=== PATIENT | male | born 1950 | race Caucasian/White ===

== ENCOUNTER → 2020-03-18 10:53 | Outpatient (BNVA) | payer MEDICAID, SELFPAY | PROVIDERS: PCP Internal Medicine; Visit Provider Orthopaedic Surgery | DX: M17.10 Unilateral primary osteoarthritis, unspecified knee (principal) | CPT/HCPCS: 20610; 99212; J1100 ==

== ENCOUNTER → 2020-06-17 09:54 | Outpatient (BNVA) | payer MEDICAID, SELFPAY | PROVIDERS: Visit Provider Orthopaedic Surgery | DX: M17.10 Unilateral primary osteoarthritis, unspecified knee (principal); E11.9 Type 2 diabetes mellitus without complications | CPT/HCPCS: 20610; 99212; J1100 ==

== ENCOUNTER 2022-02-18 13:26 | Emergency (ER) | payer MEDICAID, SELFPAY ==
--- NOTE | ~2022-02-18 | CT_ITS ---
CT HEAD WITHOUT IV CONTRAST CT CERVICAL SPINE WITHOUT IV CONTRAST INDICATION: Fall with head strike. COMPARISON: Head CT 02/04/2017. TECHNIQUE: Multidetector CT acquisitions of the head and cervical spine were obtained without IV contrast. Multiplanar reformats were acquired and utilized for image interpretation. This CT examination was performed using dose optimization techniques as appropriate, variously including the following: *Automated exposure control *Adjustment of mA and/or kV according to patient size (this includes techniques or standardized protocols for targeted exams where dose is matched to indication/reason for exam; i.e. extremities or head) *Use of iterative reconstruction technique FINDINGS: HEAD: There is no intracranial hemorrhage, hydrocephalus, extra-axial surface collection, midline shift, or other herniation pattern. Perivascular spaces within the inferior basal ganglia bilaterally. There is mild chronic microangiopathy. [place] to white matter differentiation is diffusely maintained without evidence of an evolved acute territorial infarct. The basilar cisterns are preserved. No significant soft tissue abnormality. No acute osseous abnormality. The paranasal sinuses and the mastoid air cells are well aerated. CERVICAL SPINE: Reversal the cervical lordosis. Advanced multilevel cervical spondylosis. There are no acute fractures and there are no acute subluxations within the cervical spine. There is no prevertebral soft tissue swelling. Atherosclerotic calcification involving the carotid bifurcations bilaterally. CT/CT head/brain wo IV con IMPRESSION: - No acute intracranial findings. - No acute osseous findings within the cervical spine. Advanced cervical spondylosis.
--- NOTE | ~2022-02-18 | CT_ITS ---
CT HEAD WITHOUT IV CONTRAST CT CERVICAL SPINE WITHOUT IV CONTRAST INDICATION: Fall with head strike. COMPARISON: Head CT 02/04/2017. TECHNIQUE: Multidetector CT acquisitions of the head and cervical spine were obtained without IV contrast. Multiplanar reformats were acquired and utilized for image interpretation. This CT examination was performed using dose optimization techniques as appropriate, variously including the following: *Automated exposure control *Adjustment of mA and/or kV according to patient size (this includes techniques or standardized protocols for targeted exams where dose is matched to indication/reason for exam; i.e. extremities or head) *Use of iterative reconstruction technique FINDINGS: HEAD: There is no intracranial hemorrhage, hydrocephalus, extra-axial surface collection, midline shift, or other herniation pattern. Perivascular spaces within the inferior basal ganglia bilaterally. There is mild chronic microangiopathy. [place] to white matter differentiation is diffusely maintained without evidence of an evolved acute territorial infarct. The basilar cisterns are preserved. No significant soft tissue abnormality. No acute osseous abnormality. The paranasal sinuses and the mastoid air cells are well aerated. CERVICAL SPINE: Reversal the cervical lordosis. Advanced multilevel cervical spondylosis. There are no acute fractures and there are no acute subluxations within the cervical spine. There is no prevertebral soft tissue swelling. Atherosclerotic calcification involving the carotid bifurcations bilaterally. CT/CT cervical spine wo IV con IMPRESSION: - No acute intracranial findings. - No acute osseous findings within the cervical spine. Advanced cervical spondylosis.
--- NOTE | ~2022-02-18 | XR_ITS ---
EXAMINATION: XR CHEST CLINICAL INFORMATION: Dizziness COMPARISON: Previous chest x-ray most recent November 2017 TECHNIQUE: Frontal view of the chest was obtained. FINDINGS: No significant abnormality is noted involving the heart, lungs, mediastinum, bony thorax or soft tissues. XR/XR chest 1V IMPRESSION: Unremarkable examination.
[2022-02-18 13:50] VITALS: BP 134/59; PULSE 77; RESP 16; TEMP 36.7; O2SAT 98; BMI 28.3
--- NOTE | 2022-02-18 13:50 | ED_ITS ---
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 for quite a while now and had 2 episodes of being ?dizzy yesterday and was noted to have a low blood sugar and then had a recent episode after that. Patient did have an appointment yesterday with his primary care provider but then told his daughters with whom he lives that ?he was unable to go because of his blood pressure?. Patient denies any fever, chills, shortness of breath or chest pain and denies any use of anticoagulant therapy or loss of consciousness during these episodes. Patient states he has been eating and drinking well. <Fiorella Ramirez MD - Last Filed: 02/18/22 16:38> Related Data Home Medications: Home Medications Medication Instructions Recorded Confirmed No Known Home Meds 06/17/20 06/17/20 <DONNELL Viera - Last Filed: 02/18/22 13:56> Allergies/Adverse Reactions: Allergies Allergy/AdvReac Type Severity Reaction Status Date / Time No Known Allergies Allergy Verified 02/18/22 13:55 <DONNELL Viera - Last Filed: 02/18/22 13:56> Review of Systems Review of Systems: Pertinent positives and negatives as stated in HPI. <Fiorella Ramirez MD - Last Filed: 02/18/22 16:38> PMFSH Past Medical History Source: nursing notes reviewed <Fiorella Ramirez MD - Last Filed: 02/18/22 16:38> Medical History: Medical History Depression Diabetes H/O renal calculi Hyperlipemia Hypertension Peripheral neuropathy <DONNELL Viera - Last Filed: 02/18/22 13:56> Surgical History: Surgical History History of umbilical hernia repair <DONNELL Viera - Last Filed: 02/18/22 13:56> Family History Family History: Family History Mother No problems noted. Father No problems noted. <DONNELL Viera - Last Filed: 02/18/22 13:56> Social History Social History: Social History Alcohol intake: never Advance Directives: No Advance Directives Information Provided: Yes Current occupational status: employed Current occupation: right handed <DONNELL Viera - Last Filed: 02/18/22 13:56> Physical Exam Vital Signs: Vital Signs: Last Vital Signs Temp 98.1 F 02/18/22 13:50 Pulse 78 02/18/22 16:00 Resp 18 02/18/22 16:00 BP 137/60 02/18/22 16:00 Pulse Ox 99 02/18/22 16:00 O2 Del Method 02/18/22 16:00 BMI result Body Mass Index 28.3 <DONNELL Viera - Last Filed: 02/18/22 13:56> Vital Signs: Last Vital Signs Temp 98.1 F 02/18/22 13:50 Pulse 78 02/18/22 16:00 Resp 18 02/18/22 16:00 BP 137/60 02/18/22 16:00 Pulse Ox 99 02/18/22 16:00 O2 Del Method 02/18/22 16:00 BMI result Body Mass Index 28.3 VITAL SIGNS: Reviewed. GENERAL: Well developed, well nourished, in no acute distress. HEAD: Normocephalic/atraumatic, I do not appreciate any facial injuries. EYES: PERRLA, EOMI EARS: Ext canals without abnormality, TMs non-bulging and non-erythematous NOSE: Nares patent bilateral OROPHARYNX: no oral lesions noted, posterior pharynx clear and non-erythematous without noted tonsillar enlargement/erythema/exudates NECK: Supple, no adenopathy LUNGS: Normal breath sounds. No adventitious sounds or accessory muscle use. SpO2<99> CARDIOVASCULAR: Regular rate and rhythm without noted murmurs, no JVD or lower extremity edema. ABDOMEN: Soft, non-tender, non-distended with bowel sounds. MUSCULOSKELETAL: No tenderness, deformities, or effusions noted on gross inspection. EXTREMITIES: No cyanosis, clubbing or edema. SKIN: Inspection of the skin reveals no rashes NEUROLOGIC: Alert and oriented x 3. Strength and sensation to light touch were grossly intact x 4, no facial asymmetry, no pronator drift, cranial nerves 2-12 are grossly intact. <Fiorella Ramirez MD - Last Filed: 02/18/22 16:38> Course Course Course Narrative: 13:50 - RME - 71 yo male Polish speaking male with history of DM, HTN, arthritis, presents to the ER for evaluation after he fell last night at 11:30pm. He fell in the setting of dizziness after getting out of the shower. He hit his head but did not lose consciousness. No chest pain or SOB. BP after the fall was 110/58, baseline BP 150/70s. Three days prior he also fell backward when walking down the hallway and his daughter caught him. 1st fall associated with left sided headache and left sided numbness which has since resolved. PCP told him to come in for evaluation. - VSS on arrival. Will check CT scans head/neck, labs, EKG, trop, viral swab and orthostatic VS. Plan per provider in the pain ER. <DONNELL Viera - Last Filed: 02/18/22 13:56> Medical Decision Making Medical Decision Making MDM Narrative: 71-year-old male who reports intermittent dizziness with 2 falls but refusing to go in and see his primary care provider. Will evaluate for any presence of infection, new anemia, electrolyte imbalance. <Fiorella Ramirez MD - Last Filed: 02/18/22 16:38> Differential Diagnosis Differential Diagnoses: The differential diagnosis associated with the presentation includes <Fiorella Ramirez MD - Last Filed: 02/18/22 16:38> Infection, anemia, electrolyte imbalance, hyper/hypoglycemia. <Fiorella cunningham MD - Last Filed: 02/18/22 16:38> Lab Data MDM Lab Attestation statement: I reviewed the patient's lab results. <Fiorella Ramirez MD - Last Filed: 02/18/22 16:38> Please see the course Section for discussion <Fiorella Ramirez MD - Last F iled: 02/18/22 16:38> Result Diagrams: : 02/18/22 14:49 02/18/22 14:49 <DONNELL Viera - Last Filed: 02/18/22 13:56> Labs: Lab Results 02/18/22 02/18/22 02/18/22 Range/Units 14:49 14:49 14:49 WBC 10.8 (4.8-10.8) X10*3/uL RBC 4.00 L (4.60-5.80) X10*6/uL Hgb 10.8 L (14.0-18.0) g/dl Hct 33.8 L (42.0-52.0) % MCV 84.5 (80.0-98.0) fL MCH 27.0 (27.0-33.0) pg MCHC 32.0 (31.0-36.0) g/dl RDW 13.4 (11.0-16.0) % Plt Count 294 (160-400) X10*3/uL MPV 10.0 (9.4-12.4) fL Immature Gran % (Auto) 0.2 (0.0-0.4) % Neut % (Auto) 65.7 (45-73) % Lymph % (Auto) 25.8 (20-40) % Pepin % (Auto) 7.8 (2-11) % Eos % (Auto) 0.0 (0-4) % Baso % (Auto) 0.5 (0-2) % Lymph # (Auto) 2.8 (1.2-4.9) X10*3/uL [place] # (Auto) 0.8 (0.1-1.2) X10*3/uL Eos # (Auto) 0.0 (0.0-0.4) X10*3/uL Baso # (Auto) 0.1 (0.0-0.2) X10*3/uL Abs Immat Gran (auto) 0.02 (0.00-0.03) X10*3/uL Absolute Neuts (auto) 7.1 (2.0-8.3) x10*3/uL Absolute Nucleated RBC 0.000 (0.0-0.012) X10*3/uL Nucleated RBC % (auto) 0.0 (0.0-0.2) /100WBC PT 11.7 (10.0-13.1) SEC INR 1.0 (0.9-1.1) APTT 33.5 (26.0-36.4) SEC Sodium 135 (135-145) mmol/L Potassium 4.4 (3.3-5.1) mmol/L Chloride 102 (96-108) mmol/L Carbon Dioxide 25 (22-29) mmol/L Anion Gap 12 (12-20) BUN 23 H (9-16) mg/dL Creatinine 1.23 (0.5-1.4) mg/dL Estim Creat Clear Calc 54.8 Estimated GFR 58 Random Glucose 152 H (60-115) mg/dL Calcium 9.4 (8.4-10.2) mg/dL Magnesium 1.8 (1.6-2.6) mg/dL Total Bilirubin 0.4 (0.0-1.0) mg/dL Direct Bilirubin 0.2 (0.0-0.5) mg/dL AST 14 (5-37) U/L ALT 10 (0-40) U/L Alkaline Phosphatase 63 (39-117) U/L Total Protein 7.4 (6.5-8.0) g/dL Albumin 3.9 (3.5-5.0) g/dL Influenza Type A (PCR) (Negative) Influenza Type B (PCR) (Negative) RSV RNA Qual (PCR) (Negative) SARS-CoV-2 RNA (RT-PCR) (Negative) 02/18/22 Range/Units 14:49 WBC (4.8-10.8) X10*3/uL RBC (4.60-5.80) X10*6/uL Hgb (14.0-18.0) g/dl Hct (42.0-52.0) % MCV (80.0-98.0) fL MCH (27.0-33.0) pg MCHC (31.0-36.0) g/dl RDW (11.0-16.0) % Plt Count (160-400) X10*3/uL MPV (9.4-12.4) fL Immature Gran % (Auto) (0.0-0.4) % Neut % (Auto) (45-73) % Lymph % (Auto) (20-40) % Pepin % (Auto) (2-11) % Eos % (Auto) (0-4) % Baso % (Auto) (0-2) % Lymph # (Auto) (1.2-4.9) X10*3/uL Pepin # (Auto) (0.1-1.2) X10*3/uL Eos # (Auto) (0.0-0.4) X10*3/uL Baso # (Auto) (0.0-0.2) X10*3/uL Abs Immat Gran (auto) (0.00-0.03) X10*3/uL Absolute Neuts (auto) (2.0-8.3) x10*3/uL Absolute Nucleated RBC (0.0-0.012) X10*3/uL Nucleated RBC % (auto) (0.0-0.2) /100WBC PT (10.0-13.1) SEC INR (0.9-1.1) APTT (26.0-36.4) SEC Sodium (135-145) mmol/L Potassium (3.3-5.1) mmol/L Chloride (96-108) mmol/L Carbon Dioxide (22-29) mmol/L Anion Gap (12-20) BUN (9-16) mg/dL Creatinine (0.5-1.4) mg/dL Estim Creat Clear Calc Estimated GFR Random Glucose (60-115) mg/dL Calcium (8.4-10.2) mg/dL Magnesium (1.6-2.6) mg/dL Total Bilirubin (0.0-1.0) mg/dL Direct Bilirubin (0.0-0.5) mg/dL AST (5-37) U/L ALT (0-40) U/L Alkaline Phosphatase (39-117) U/L Total Protein (6.5-8.0) g/dL Albumin (3.5-5.0) g/dL Influenza Type A (PCR) NEGATIVE (Negative) Influenza Type B (PCR) NEGATIVE (Negative) RSV RNA Qual (PCR) NEGATIVE (Negative) SARS-CoV-2 RNA (RT-PCR) NEGATIVE (Negative) <DONNELL Viera - Last Filed: 02/18/22 13:56> Lab Results 02/18/22 02/18/22 02/18/22 Range/Units 14:49 14:49 14:49 WBC 10.8 (4.8-10.8) X10*3/uL RBC 4.00 L (4.60-5.80) X10*6/uL Hgb 10.8 L (14.0-18.0) g/dl Hct 33.8 L (42.0-52.0) % MCV 84.5 (80.0-98.0) fL MCH 27.0 (27.0-33.0) pg MCHC 32.0 (31.0-36.0) g/dl RDW 13.4 (11.0-16.0) % Plt Count 294 (160-400) X10*3/uL MPV 10.0 (9.4-12.4) fL Immature Gran % (Auto) 0.2 (0.0-0.4) % Neut % (Auto) 65.7 (45-73) % Lymph % (Auto) 25.8 (20-40) % Pepin % (Auto) 7.8 (2-11) % Eos % (Auto) 0.0 (0-4) % Baso % (Auto) 0.5 (0-2) % Lymph # (Auto) 2.8 (1.2-4.9) X10*3/uL Pepin # (Auto) 0.8 (0.1-1.2) X10*3/uL Eos # (Auto) 0.0 (0.0-0.4) X10*3/uL Baso # (Auto) 0.1 (0.0-0.2) X10*3/uL Abs Immat Gran (auto) 0.02 (0.00-0.03) X10*3/uL Absolute Neuts (auto) 7.1 (2.0-8.3) x10*3/uL Absolute Nucleated RBC 0.000 (0.0-0.012) X10*3/uL Nucleated RBC % (auto) 0.0 (0.0-0.2) /100WBC PT 11.7 (10.0-13.1) SEC INR 1.0 (0.9-1.1) APTT 33.5 (26.0-36.4) SEC Sodium 135 (135-145) mmol/L Potassium 4.4 (3.3-5.1) mmol/L Chloride 102 (96-108) mmol/L Carbon Dioxide 25 (22-29) mmol/L Anion Gap 12 (12-20) BUN 23 H (9-16) mg/dL Creatinine 1.23 (0.5-1.4) mg/dL Estim Creat Clear Calc 54.8 Estimated GFR 58 Random Glucose 152 H (60-115) mg/dL Calcium 9.4 (8.4-10.2) mg/dL Magnesium 1.8 (1.6-2.6) mg/dL Total Bilirubin 0.4 (0.0-1.0) mg/dL Direct Bilirubin 0.2 (0.0-0.5) mg/dL AST 14 (5-37) U/L ALT 10 (0-40) U/L Alkaline Phosphatase 63 (39-117) U/L Total Protein 7.4 (6.5-8.0) g/dL Albumin 3.9 (3.5-5.0) g/dL Influenza Type A (PCR) (Negative) Influenza Type B (PCR) (Negative) RSV RNA Qual (PCR) (Negative) SARS-CoV-2 RNA (RT-PCR) (Negative) 02/18/22 Range/Units 14:49 WBC (4.8-10.8) X10*3/uL RBC (4.60-5.80) X10*6/uL Hgb (14.0-18.0) g/dl Hct (42.0-52.0) % MCV (80.0-98.0) fL MCH (27.0-33.0) pg MCHC (31.0-36.0) g/dl RDW (11.0-16.0) % Plt Count (160-400) X10*3/uL MPV (9.4-12.4) fL Immature Gran % (Auto) (0.0-0.4) % Neut % (Auto) (45-73) % Lymph % (Auto) (20-40) % Pepin % (Auto) (2-11) % Eos % (Auto) (0-4) % Baso % (Auto) (0-2) % Lymph # (Auto) (1.2-4.9) X10*3/uL Pepin # (Auto) (0.1-1.2) X10*3/uL Eos # (Auto) (0.0-0.4) X10*3/uL Baso # (Auto) (0.0-0.2) X10*3/uL Abs Immat Gran (auto) (0.00-0.03) X10*3/uL Absolute Neuts (auto) (2.0-8.3) x10*3/uL Absolute Nucleated RBC (0.0-0.012) X10*3/uL Nucleated RBC % (auto) (0.0-0.2) /100WBC PT (10.0-13.1) SEC INR (0.9-1.1) APTT (26.0-36.4) SEC Sodium (135-145) mmol/L Potassium (3.3-5.1) mmol/L Chloride (96-108) mmol/L Carbon Dioxide (22-29) mmol/L Anion Gap (12-20) BUN (9-16) mg/dL Creatinine (0.5-1.4) mg/dL Estim Creat Clear Calc Estimated GFR Random Glucose (60-115) mg/dL Calcium (8.4-10.2) mg/dL Magnesium (1.6-2.6) mg/dL Total Bilirubin (0.0-1.0) mg/dL Direct Bilirubin (0.0-0.5) mg/dL AST (5-37) U/L ALT (0-40) U/L Alkaline Phosphatase (39-117) U/L Total Protein (6.5-8.0) g/dL Albumin (3.5-5.0) g/dL Influenza Type A (PCR) NEGATIVE (Negative) Influenza Type B (PCR) NEGATIVE (Negative) RSV RNA Qual (PCR) NEGATIVE (Negative) SARS-CoV-2 RNA (RT-PCR) NEGATIVE (Negative) <Fiorella Ramirez MD - Last Filed: 02/18/22 16:38> Independent Interpretation I performed an independent interpretation of an: EKG <Fiorella Ramirez MD - Last Filed: 02/18/22 16:38> Interpretation: Sinus rhythm with occasional PVC, HR-78, no STEMI, PA/QRS/QTC is within normal limits. <Fiorella Ramirez MD - Last Filed: 02/18/22 16:38> Radiology Impression Radiologist Impression: My interpretation is in agreement with the radiologist's impression of imaging studies. <Fiorella Ramirez MD - Last Filed: 02/18/22 16:38> Independent Historian Clinical information obtained from an independent historian. History obtained from or confirmed by: Other <Fiorella Ramirez MD - Last Filed: 02/18/22 16:38> Daughter <Fiorella Ramirez MD - Last Filed: 02/18/22 16:38> Chronic Conditions Patient?s care impacted by: Diabetes <Fiorella Ramirez MD - Last Filed: 02/18/22 16:38> Discharge Plan Discharge Clinical Impression: Fall <DONNELL Viera - Last Filed: 02/18/22 13:56> Patient Disposition: Home, Self-Care <DONNELL Viera - Last Filed: 02/18/22 13:56> Instructions: Fall Prevention for Older Adults (ED) <DONNELL Viera - Last Filed: 02/18/22 13:56> Additional Instructions: 1. Reanudar todos los medicamentos caseros seg?n lo prescrito. 2. Le recomendamos que tenga cuidado al cambiar de posici?n cuando est? parado desde jamila posici?n sentada o cuando est? parado desde jamila posici?n acostada. 3. Recomiende que no tome medicamentos para la presi?n arterial si lenz presi?n arterial sist?lica inicial es de 120 o menos. 4. Es muy importante que geno un seguimiento con lenz proveedor de atenci?n primaria. Tiene jamila augie programada a la que absolutamente debe asistir. Enviar? mi nota a lenz proveedor de atenci?n primaria. Regrese a la isaias de emergencias por cualquier empeoramiento de los s?ntomas. 1. Resume all home medications as prescribed. 2. Recommend that you use caution in changing position when standing from a sitting position or standing from a laying down position. 3. Recommend that you not take blood pressure medication if your starting blood pressure is 120 or less systolic. 4. It is very important that you follow-up with your primary care provider. You have a scheduled appointment that you should absolutely attend. I will be sending my note over to your primary care provider. Return to the ER for any worsening of symptoms. <DONNELL Viera - Last Filed: 02/18/22 13:56> Referrals: [facility] [Primary Care Provider] - <DONNELL Viera - Last Filed: 02/18/22 13:56> Print Language: Polish <DONNELL Viera - Last Filed: 02/18/22 13:56>
--- NOTE | 2022-02-18 13:53 | ECG_ITS ---
Test Reason : FALL Blood Pressure : / mmHG Vent. Rate : 078 BPM Atrial Rate : 078 BPM P-R Int : 200 ms QRS Dur : 096 ms QT Int : 380 ms P-R-T Axes : 033 -11 029 degrees QTc Int : 433 ms Sinus rhythm with occasional Premature ventricular complexes Possible Left atrial enlargement Minimal voltage criteria for LVH, may be normal variant ( R in aVL ) Borderline ECG When compared with ECG of 18-MAY-2017 13:32, Premature ventricular complexes are now Present Nonspecific T wave abnormality no longer evident in Lateral leads Referred By: Damaris Woodard Electronically Signed By:CARLYLE SOLIMAN MD
[2022-02-18 14:33] VITALS: BP 119/54; PULSE 72
[2022-02-18 14:35] VITALS: BP 125/64; PULSE 77
[2022-02-18 14:37] VITALS: BP 120/58; PULSE 80
[2022-02-18 14:54] LABS: MANUAL DIFF FLAG NO
[2022-02-18 15:02] LABS: Basophils Absolute Auto 0.1 X10*3/uL (0.0-0.2); Basophils Percent Auto 0.5 % (0-2); Hematocrit 33.8 % (42.0-52.0); Hemoglobin 10.8 g/dl (14.0-18.0); Imm Gran Abs Auto 0.02 X10*3/uL (0.00-0.03); Imm Gran Pct Auto 0.2 % (0.0-0.4); Lymphocytes Absolute Auto 2.8 X10*3/uL (1.2-4.9); Lymphocytes Percent Auto 25.8 % (20-40); Mean Corpuscular Volume 84.5 fL (80.0-98.0); Monocytes Absolute Auto 0.8 X10*3/uL (0.1-1.2); Monocytes Percent Auto 7.8 % (2-11); Neutrophils Absolute Auto 7.1 x10*3/uL (2.0-8.3); Neutrophils Percent Auto 65.7 % (45-73); Platelet Count 294 X10*3/uL (160-400); Red Cell Distribution Width 13.4 % (11.0-16.0); White Blood Count 10.8 X10*3/uL (4.8-10.8)
[2022-02-18 15:03] LABS: Prothrombin Time 11.7 SEC (10.0-13.1)
[2022-02-18 15:06] LABS: Partial Thromboplastin Time 33.5 SEC (26.0-36.4)
[2022-02-18 15:34] LABS: Alanine Aminotransferase 10 U/L (0-40); Albumin Level 3.9 g/dL (3.5-5.0); Alkaline Phosphatase 63 U/L (39-117); Anion Gap 12 (12-20); Aspartate Amino Transferase 14 U/L (5-37); Bilirubin Direct 0.2 mg/dL (0.0-0.5); Bilirubin Total 0.4 mg/dL (0.0-1.0); Blood Urea Nitrogen 23 mg/dL (9-16); Calcium 9.4 mg/dL (8.4-10.2); Carbon Dioxide 25 mmol/L (22-29); Chloride 102 mmol/L (96-108); Creatinine Clr Calc Pharmacy 54.8; Estimated Glomerular Filt Rate 58; Glucose Random 152 mg/dL (60-115); Magnesium 1.8 mg/dL (1.6-2.6); Potassium 4.4 mmol/L (3.3-5.1); Sodium 135 mmol/L (135-145); Total Protein 7.4 g/dL (6.5-8.0)
[2022-02-18 15:35] LABS: Influenza A PCR NEGATIVE (Negative); Influenza B PCR NEGATIVE (Negative); Resp Syncy Virus RNA Qual PCR NEGATIVE (Negative); SARS COV2 PCR INHOUSE NEGATIVE (Negative)
[2022-02-18 16:00] VITALS: BP 137/60; PULSE 78; RESP 18; O2SAT 99
[2022-02-18 17:20] LABS: Troponin-I High Sensitivity 4.5 ng/L (<3.5-35.0)
== END 2022-02-18 16:56 | disposition home or self-care (01) ==
PROVIDERS: Physician Assistant; Emergency Provider Student in an Organized Health Care Education/Training Program
DX: R42 Dizziness and giddiness (principal); M54.2 Cervicalgia; R51.9 Headache, unspecified; R07.89 Other chest pain; Z20.822 Contact with and (suspected) exposure to COVID-19; Z79.899 Other long term (current) drug therapy
CPT/HCPCS: 0241U; 36415; 70450; 71045; 72125; 80048; 80076; 83735; 84484; 85025; 85610; 85730; 93005; 99284

== ENCOUNTER 2022-03-05 12:01 | Emergency (ER) | payer MEDICAID, SELFPAY ==
--- NOTE | 2022-03-05 12:05 | ED.DIZZY ---
HPI - Dizziness General Chief Complaint: General Medical <Miguelina Sneed NP - Last Filed: 03/05/22 12:09> Stated Complaint: L side head and arm pain, Low BP, High sugar <Miguelina Sneed NP - Last Filed: 03/05/22 12:09> Time Seen by Provider: 03/05/22 13:48 <Miguelina Sneed NP - Last Filed: 03/05/22 12:09> Source: patient and family (daughter) <DONNELL Arrington - Last Filed: 03/05/22 16:35> Mode of arrival: ambulatory <DONNELL Arrington Last Filed: 03/05/22 16:35> Limitations: no limitations <DONNELL Arrington Last Filed: 03/05/22 16:35> History of Present Illness HPI Narrative: Patient is a 71 year old assigned male at with a history of DM presenting to the emergency department today with an episode of dizziness and left head pain. Patient states that several days ago he had an episode of dizziness that was brief and resolved quickly. Patient states that the left side of his head has hurt intermittently since then. Patient's daughter states that the patient's sugar was high this morning so they gave him insulin and it got better. Patient denies any current dizziness, lightheadedness, abdominal pain, nausea, vomiting, fever, chills, blurry vision, double vision, loss of vision, chest pain, difficulty breathing, shortness of breath, back pain, night sweats, pain with urination, increased urinary frequency, increased urinary urgency, blood in his urine or stool, syncope or a near syncopal episode, recent trauma or falls, bowel incontinence, bladder incontinence, bowel retention, bladder retention, or any other complaints at this time. <DONNELL Arrington - Last Filed: 03/05/22 16:35> MD elicited complaint: dizziness <DONNELL Arrington Last Filed: 03/05/22 16:35> Exacerbating factors: nothing <DONNELL Arrington Last Filed: 03/05/22 16:35> Relieving factors: nothing <DONNELL Arrington Last Filed: 03/05/22 16:35> Associated symptoms: denies other symptoms <DONNELL Arrington Last Filed: 03/05/22 16:35> Related Data Home Medications: Home Medications Medication Instructions Recorded Confirmed No Known Home Meds 06/17/20 06/17/20 <Miguelina Sneed NP - Last Filed: 03/05/22 12:09> Allergies/Adverse Reactions: Allergies Allergy/AdvReac Type Severity Reaction Status Date / Time seafood Allergy Anaphylaxis Verified 03/05/22 12:09 <Miguelina Sneed NP - Last Filed: 03/05/22 12:09> Review of Systems Constitutional: Constitutional: Reports no additional constitutional complaints, Denies chills, Denies fever(s) and Denies night sweats <DONNELL Arrington - Last Filed: 03/05/22 16:35> Eyes: Eyes: Reports no additional eye complaints, Denies blurry vision, Denies change in vision, Denies diplopia, Denies eye discharge, Denies loss of vision and Denies eye pain <DONNELL Arrington - Last Filed: 03/05/22 16:35> ENT: Denies dizziness <DONNELL Arrington - Last Filed: 03/05/22 16:35> Cardiovascular: Cardiovascular: Reports no additional cardiovascular complaints, Denies chest pain, Denies lightheadedness, Denies Loss of Consciousness and Denies dyspnea <DONNELL Arrington - Last Filed: 03/05/22 16:35> Respiratory: Respiratory: Reports no additional respiratory complaints and Denies dyspnea <DONNELL Arrington Last Filed: 03/05/22 16:35> Gastrointestinal: Gastrointestinal: Reports no additional gastrointestinal complaints, Denies abdominal pain, Denies melena, Denies hematochezia, Denies change in bowel habits and Denies change in stool character <DONNELL Arrington - Last Filed: 03/05/22 16:35> Genitourinary: Genitourinary: Reports no additional male genitourinary complaints, Denies hematuria, Denies oliguria, Denies difficulty urinating, Denies dysuria, Denies urinary frequency, Denies urinary hesitancy, Denies urinary incontinence and Denies urinary urgency <DONNELL Arrington Last Filed: 03/05/22 16:35> Musculoskeletal: Musculoskeletal: Reports no additional musculoskeletal complaints, Denies numbness and Denies tingling <DONNELL Arrington - Last Filed: 03/05/22 16:35> Neurologic: Denies dizziness, Denies loss of vision, Denies numbness and Denies tingling <DONNELL Arrington - Last Filed: 03/05/22 16:35> Psychiatric: Psychiatric: Reports no additional psychiatric complaints <DONNELL Arrington - Last Filed: 03/05/22 16:35> Endocrine: Endocrine: Reports no additional endocrine complaints <DONNELL Arrington - Last Filed: 03/05/22 16:35> Hematologic/Lymphatic: Hematologic/Lymphatic: Reports no additional hematologic/lymphatic complaints <DONNELL Arrington - Last Filed: 03/05/22 16:35> Allergic/Immunologic: Allergic/Immunologic: Reports no additional allergic/immunologic complaints <DONNELL Arrington - Last Filed: 03/05/22 16:35> PMFSH Past Medical History Attestation statement: The following information was validated with the patient. (patient's daughter validated all information) <DONNELL Arrington - Last Filed: 03/05/22 16:35> Source: old records reviewed, obtained from family (patient's daughter) and nursing notes reviewed <DONNELL Arrington - Last Filed: 03/05/22 16:35> Medical History: Medical History Depression Diabetes H/O renal calculi Hyperlipemia Hypertension Peripheral neuropathy <Miguelina Sneed NP - Last Filed: 03/05/22 12:09> Surgical History: Surgical History History of umbilical hernia repair <Miguelina Sneed NP - Last Filed: 03/05/22 12:09> Family History Family History: Family History Mother No problems noted. Father No problems noted. <Miguelina Sneed NP - Last Filed: 03/05/22 12:09> Social History Social History: Social History Alcohol intake: never Advance Directives: No Advance Directives Information Provided: Yes Current occupational status: employed Current occupation: right handed <Miguelina Sneed NP - Last Filed: 03/05/22 12:09> Physical Exam Vital Signs: Vital Signs: Last Vital Signs Temp 98.1 F 03/05/22 12:06 Pulse 90 03/05/22 13:49 Resp 18 03/05/22 13:49 BP 108/60 03/05/22 13:49 Pulse Ox 98 03/05/22 13:49 O2 Del Method 03/05/22 13:49 BMI result Body Mass Index 26.6 <Miguelina Sneed NP - Last Filed: 03/05/22 12:09> Vital Signs: Last Vital Signs Temp 98.1 F 03/05/22 12:06 Pulse 90 03/05/22 13:49 Resp 18 03/05/22 13:49 BP 108/60 03/05/22 13:49 Pulse Ox 98 03/05/22 13:49 O2 Del Method 03/05/22 13:49 BMI result Body Mass Index 26.6 <DONNELL Arirngton - Last Filed: 03/05/22 16:35> Const: General: cooperative, no acute distress, alert and awake <DONNELL Arrington - Last Filed: 03/05/22 16:35> Nutritional Appearance: well nourished <DONNELL Arrington - Last Filed: 03/05/22 16:35> Orientation/consciousness: patient oriented x3 <DONNELL Arrington - Last Filed: 03/05/22 16:35> Limitations: no limitations <DONNELL Arrington - Last Filed: 03/05/22 16:35> HEENT: Head: Yes normal to inspection and Yes atraumatic <DONNELL Arrington - Last Filed: 03/05/22 16:35> Ears: hearing grossly normal bilaterally and external ears normal <DONNELL Arrington Last Filed: 03/05/22 16:35> General nose exam: Normal external nose present, no nasal discharge noted and no epistaxis <DONNELL Arrington Last Filed: 03/05/22 16:35> Face and sinus: Yes normal facial exam, No abrasion and No laceration <Imani WongDONNELL - Last Filed: 03/05/22 16:35> Mouth: Normal oral and palatal mucosa present, no drooling and no muffled voice <Imani Wong MN - Last Filed: 03/05/22 16:35> Eyes: General: appearance normal, both eyes and all related structures <Imani Wong MN - Last Filed: 03/05/22 16:35> Periorbital: periorbital findings normal <Imani Wong MN - Last Filed: 03/05/22 16:35> Eyelids: Yes eyelids normal <Imani Wong MN - Last Filed: 03/05/22 16:35> Conjunctivae: conjunctivae normal <Imani Wong MN - Last Filed: 03/05/22 16:35> Pupils: Equal, round and reactive pupils present <Imani Wong MN - Last Filed: 03/05/22 16:35> EOM: EOMs intact bilaterally <Imani Gastelumbarbara MN - Last Filed: 03/05/22 16:35> Neck: Neck: Yes normal visual inspection, Yes full ROM and Yes no lymphadenopathy <Imani Gastelumbarbara MN - Last Filed: 03/05/22 16:35> Chest: Chest palpation & inspection: normal inspection of the chest <Imaniharrison Gastelumbarbara MN - Last Filed: 03/05/22 16:35> Resp: Effort & Inspection: normal respiratory effort and able to speak in complete sentences <Imaniharrison Gastelumbarbara MN - Last Filed: 03/05/22 16:35> Auscultation: clear to auscultation bilaterally <Imani Gastelumbarbara MN - Last Filed: 03/05/22 16:35> Cardio: Rate: regular rate <Imani Gastelumbarbara MN - Last Filed: 03/05/22 16:35> Rhythm: regular rhythm <Imani Gastelumbarbara MN - Last Filed: 03/05/22 16:35> GI: Inspection: Yes normal to inspection <Imaniharrison GastelumDONNELL jimenez - Last Filed: 03/05/22 16:35> Palpation (GI): Soft to palpation, not firm, nontender, no guarding and not rigid <Imani DONNELL Wong - Last Filed: 03/05/22 16:35> Neuro: General: patient oriented x3 and moves all extremities <Imaniharrison GastelumDONNELL jimenez - Last Filed: 03/05/22 16:35> Cranial nerves: Yes Equal, round and reactive pupils present <Imani GastelumDONNELL jimenez - Last Filed: 03/05/22 16:35> Cognition (Neuro): normal cognition <Imaniharrison GastelumDONNELL jimenez - Last Filed: 03/05/22 16:35> Motor exam (neuro): 5/5 motor strength present throughout <Imaniharrison GastelumDONNELL jimenez - Last Filed: 03/05/22 16:35> Sensory Exam: Normal double simultaneous stimulation for sensation <Imaniharrison GastelumDONNELL jimenez - Last Filed: 03/05/22 16:35> Coordination: [id number] test normal <Imani WongDONNELL jimenez - Last Filed: 03/05/22 16:35> Extrem: General: Yes normal to inspection, Yes full ROM and Yes capillary refill normal <DONNELL Arrington - Last Filed: 03/05/22 16:35> Psych: Appearance: grossly normal <Imaniharrison GastelumDONNELL jimenez - Last Filed: 03/05/22 16:35> Mental Status: mental status grossly normal <Imaniharrison GastelumDONNELL jimenez - Last Filed: 03/05/22 16:35> Affect: normal affect <DONNELL Arrington - Last Filed: 03/05/22 16:35> Attitude: cooperative <DONNELL Arrington - Last Filed: 03/05/22 16:35> Thought process: Normal thought process present <DONNELL Arrington - Last Filed: 03/05/22 16:35> Thought content: Normal thought content present <DONNELL Arrington - Last Filed: 03/05/22 16:35> Insight: Good insight present (Psych) <DONNELL Arrington - Last Filed: 03/05/22 16:35> NIH Stroke Scale Internal: Initial- Upon Arrival <DONNELL Arrington - Last Filed: 03/05/22 16:35> Time: 12:09 <DONNELL Arrington - Last Filed: 03/05/22 16:35> Level of Consciousness: Alert <DONNELL Arrington - Last Filed: 03/05/22 16:35> Level of Consciousness Questions: Answers both questions correctly <Imani Wong PA - Last Filed: 03/05/22 16:35> Level of Consciousness Commands: Performs both tasks correctly <Imani Wong PA - Last Filed: 03/05/22 16:35> Best Gaze: Normal <Imani Wong PA - Last Filed: 03/05/22 16:35> Visual: No visual loss <Imani Wong PA - Last Filed: 03/05/22 16:35> Facial Palsy: Normal <Imani Wong PA - Last Filed: 03/05/22 16:35> Motor Arm (Right): No drift <Imaniharrison Wong PA - Last Filed: 03/05/22 16:35> Motor Arm (Left): No drift <Imaniharrison Wong PA - Last Filed: 03/05/22 16:35> Motor Leg (Right): No drift <Imani Wong PA - Last Filed: 03/05/22 16:35> Motor Leg (Left): No drift <Imani Wong PA - Last Filed: 03/05/22 16:35> Limb Ataxia: Absent <Imani Wong PA - Last Filed: 03/05/22 16:35> Sensory: Normal <Imani Wong PA - Last Filed: 03/05/22 16:35> Best Language: No aphasia <Imani Wong PA - Last Filed: 03/05/22 16:35> Dysarthia: Normal <Imani Wong PA - Last Filed: 03/05/22 16:35> Extinction and Inattention: No abnormality <Imani Wong PA - Last Filed: 03/05/22 16:35> Score: 0 <Imani Wong PA - Last Filed: 03/05/22 16:35> Course Course Course Narrative: This is a rapid medical exam. Deferred additional HPI, ROS, PE to primary provider. 71 yo male with history of DM, HTN here with intermittent episodes of dizziness, left sided temporal headache, left sided arm pain x weeks. Seen here 02/18 after a fall with similar complaints. Will obtain labs, EKG, covid testing. VSS. <Miguelina Sneed NP - Last Filed: 03/05/22 12:09> Medical Decision Making Medical Decision Making [facility] Narrative: Patient is a 71 year old assigned male at with a history of DM presenting to the emergency department today with resolved dizziness. Patient's physical exam was unremarkable. Patient's blood work was unremarkable. Patient's EKG was unremarkable. I explained my physical exam findings as well as all test results to the patient and the patient's daughter. I answered all questions asked by the patient and the patient's daughter. I stressed the importance of the patient taking his medication as prescribed. I stressed the importance of the patient following up with his primary care provider. I stressed the importance of the patient returning to the emergency department immediately if his symptoms were to worsen or if he were to develop any dizziness, shortness of breath, difficulty breathing, chest pain, blurry vision, loss of vision, nausea, vomiting, abdominal pain, fever, chills, back pain, or any other complaints. Patient and the patient's daughter verbalized agreement and understanding with this treatment plan and discharge. <DONNELL Arrington - Last Filed: 03/05/22 16:35> Differential Diagnosis Differential Diagnoses: The differential diagnosis associated with the presentation includes <DONNELL Arrington - Last Filed: 03/05/22 16:35> dizziness, lightheadedness <DONNELL Arrington - Last Filed: 03/05/22 16:35> Lab Data [facility] Lab Attestation statement: I reviewed the patient's lab results. <DONNELL Arrington - Last Filed: 03/05/22 16:35> Result Diagrams: 03/05/22 12:39 03/05/22 12:39 <Miguelina Sneed NP - Last Filed: 03/05/22 12:09> Labs: Lab Results 03/05/22 03/05/22 03/05/22 Range/Units 12:39 12:39 12:39 WBC 9.9 (4.8-10.8) X10*3/uL RBC 4.23 L (4.60-5.80) X10*6/uL Hgb 11.6 L (14.0-18.0) g/dl Hct 36.0 L (42.0-52.0) % MCV 85.1 (80.0-98.0) fL MCH 27.4 (27.0-33.0) pg MCHC 32.2 (31.0-36.0) g/dl RDW 12.8 (11.0-16.0) % Plt Count 252 (160-400) X10*3/uL MPV 9.9 (9.4-12.4) fL Immature Gran % (Auto) 0.4 (0.0-0.4) % Neut % (Auto) 63.7 (45-73) % Lymph % (Auto) 25.2 (20-40) % [place] % (Auto) 7.3 (2-11) % Eos % (Auto) 2.8 (0-4) % Baso % (Auto) 0.6 (0-2) % Lymph # (Auto) 2.5 (1.2-4.9) X10*3/uL [place] # (Auto) 0.7 (0.1-1.2) X10*3/uL Eos # (Auto) 0.3 (0.0-0.4) X10*3/uL Baso # (Auto) 0.1 (0.0-0.2) X10*3/uL Abs Immat Gran (auto) 0.04 H (0.00-0.03) X10*3/uL Absolute Neuts (auto) 6.3 (2.0-8.3) x10*3/uL Absolute Nucleated RBC 0.000 (0.0-0.012) X10*3/uL Nucleated RBC % (auto) 0.0 (0.0-0.2) /100WBC ESR 40 H (0-15) MM/HR Sodium 135 (135-145) mmol/L Potassium 4.6 (3.3-5.1) mmol/L Chloride 101 (96-108) mmol/L Carbon Dioxide 25 (22-29) mmol/L Anion Gap 14 (12-20) BUN 26 H (9-16) mg/dL Creatinine 1.15 (0.5-1.4) mg/dL Estim Creat Clear Calc 55.3 Estimated GFR > 60 Random Glucose 182 H (60-115) mg/dL Calcium 9.8 (8.4-10.2) mg/dL Magnesium 1.7 (1.6-2.6) mg/dL Total Bilirubin 0.3 (0.0-1.0) mg/dL Direct Bilirubin < 0.2 (0.0-0.5) mg/dL AST 14 (5-37) U/L ALT 7 (0-40) U/L Alkaline Phosphatase 63 (39-117) U/L Troponin I High Sens (<3.5-35.0) ng/L C-Reactive Protein 0.10 (< or = 0.50) mg/dL Total Protein 7.7 (6.5-8.0) g/dL Albumin 4.0 (3.5-5.0) g/dL COVID-19 (RHIANNA) (Negative) COVID-19 Clin Com 03/05/22 03/05/22 Range/Units 12:39 12:39 WBC (4.8-10.8) X10*3/uL RBC (4.60-5.80) X10*6/uL Hgb (14.0-18.0) g/dl Hct (42.0-52.0) % MCV (80.0-98.0) fL MCH (27.0-33.0) pg MCHC (31.0-36.0) g/dl RDW (11.0-16.0) % Plt Count (160-400) X10*3/uL MPV (9.4-12.4) fL Immature Gran % (Auto) (0.0-0.4) % Neut % (Auto) (45-73) % Lymph % (Auto) (20-40) % [place] % (Auto) (2-11) % Eos % (Auto) (0-4) % Baso % (Auto) (0-2) % Lymph # (Auto) (1.2-4.9) X10*3/uL [place] # (Auto) (0.1-1.2) X10*3/uL Eos # (Auto) (0.0-0.4) X10*3/uL Baso # (Auto) (0.0-0.2) X10*3/uL Abs Immat Gran (auto) (0.00-0.03) X10*3/uL Absolute Neuts (auto) (2.0-8.3) x10*3/uL Absolute Nucleated RBC (0.0-0.012) X10*3/uL Nucleated RBC % (auto) (0.0-0.2) /100WBC ESR (0-15) MM/HR Sodium (135-145) mmol/L Potassium (3.3-5.1) mmol/L Chloride (96-108) mmol/L Carbon Dioxide (22-29) mmol/L Anion Gap (12-20) BUN (9-16) mg/dL Creatinine (0.5-1.4) mg/dL Estim Creat Clear Calc Estimated GFR Random Glucose (60-115) mg/dL Calcium (8.4-10.2) mg/dL Magnesium (1.6-2.6) mg/dL Total Bilirubin (0.0-1.0) mg/dL Direct Bilirubin (0.0-0.5) mg/dL AST (5-37) U/L ALT (0-40) U/L Alkaline Phosphatase (39-117) U/L Troponin I High Sens < 3.5 (<3.5-35.0) ng/L C-Reactive Protein (< or = 0.50) mg/dL Total Protein (6.5-8.0) g/dL Albumin (3.5-5.0) g/dL COVID-19 (RHIANNA) Negative (Negative) COVID-19 Clin Com See Note <Miguelina Sneed, ANTONIO - Last Filed: 03/05/22 12:09> Lab Results 03/05/22 03/05/22 03/05/22 Range/Units 12:39 12:39 12:39 WBC 9.9 (4.8-10.8) X10*3/uL RBC 4.23 L (4.60-5.80) X10*6/uL Hgb 11.6 L (14.0-18.0) g/dl Hct 36.0 L (42.0-52.0) % MCV 85.1 (80.0-98.0) fL MCH 27.4 (27.0-33.0) pg MCHC 32.2 (31.0-36.0) g/dl RDW 12.8 (11.0-16.0) % Plt Count 252 (160-400) X10*3/uL MPV 9.9 (9.4-12.4) fL Immature Gran % (Auto) 0.4 (0.0-0.4) % Neut % (Auto) 63.7 (45-73) % Lymph % (Auto) 25.2 (20-40) % [place] % (Auto) 7.3 (2-11) % Eos % (Auto) 2.8 (0-4) % Baso % (Auto) 0.6 (0-2) % Lymph # (Auto) 2.5 (1.2-4.9) X10*3/uL [place] # (Auto) 0.7 (0.1-1.2) X10*3/uL Eos # (Auto) 0.3 (0.0-0.4) X10*3/uL Baso # (Auto) 0.1 (0.0-0.2) X10*3/uL Abs Immat Gran (auto) 0.04 H (0.00-0.03) X10*3/uL Absolute Neuts (auto) 6.3 (2.0-8.3) x10*3/uL Absolute Nucleated RBC 0.000 (0.0-0.012) X10*3/uL Nucleated RBC % (auto) 0.0 (0.0-0.2) /100WBC ESR 40 H (0-15) MM/HR Sodium 135 (135-145) mmol/L Potassium 4.6 (3.3-5.1) mmol/L Chloride 101 (96-108) mmol/L Carbon Dioxide 25 (22-29) mmol/L Anion Gap 14 (12-20) BUN 26 H (9-16) mg/dL Creatinine 1.15 (0.5-1.4) mg/dL Estim Creat Clear Calc 55.3 Estimated GFR > 60 Random Glucose 182 H (60-115) mg/dL Calcium 9.8 (8.4-10.2) mg/dL Magnesium 1.7 (1.6-2.6) mg/dL Total Bilirubin 0.3 (0.0-1.0) mg/dL Direct Bilirubin < 0.2 (0.0-0.5) mg/dL AST 14 (5-37) U/L ALT 7 (0-40) U/L Alkaline Phosphatase 63 (39-117) U/L Troponin I High Sens (<3.5-35.0) ng/L C-Reactive Protein 0.10 (< or = 0.50) mg/dL Total Protein 7.7 (6.5-8.0) g/dL Albumin 4.0 (3.5-5.0) g/dL COVID-19 (RHIANNA) (Negative) COVID-19 Clin Com 03/05/22 03/05/22 Range/Units 12:39 12:39 WBC (4.8-10.8) X10*3/uL RBC (4.60-5.80) X10*6/uL Hgb (14.0-18.0) g/dl Hct (42.0-52.0) % MCV (80.0-98.0) fL MCH (27.0-33.0) pg MCHC (31.0-36.0) g/dl RDW (11.0-16.0) % Plt Count (160-400) X10*3/uL MPV (9.4-12.4) fL Immature Gran % (Auto) (0.0-0.4) % Neut % (Auto) (45-73) % Lymph % (Auto) (20-40) % [place] % (Auto) (2-11) % Eos % (Auto) (0-4) % Baso % (Auto) (0-2) % Lymph # (Auto) (1.2-4.9) X10*3/uL [place] # (Auto) (0.1-1.2) X10*3/uL Eos # (Auto) (0.0-0.4) X10*3/uL Baso # (Auto) (0.0-0.2) X10*3/uL Abs Immat Gran (auto) (0.00-0.03) X10*3/uL Absolute Neuts (auto) (2.0-8.3) x10*3/uL Absolute Nucleated RBC (0.0-0.012) X10*3/uL Nucleated RBC % (auto) (0.0-0.2) /100WBC ESR (0-15) MM/HR Sodium (135-145) mmol/L Potassium (3.3-5.1) mmol/L Chloride (96-108) mmol/L Carbon Dioxide (22-29) mmol/L Anion Gap (12-20) BUN (9-16) mg/dL Creatinine (0.5-1.4) mg/dL Estim Creat Clear Calc Estimated GFR Random Glucose (60-115) mg/dL Calcium (8.4-10.2) mg/dL Magnesium (1.6-2.6) mg/dL Total Bilirubin (0.0-1.0) mg/dL Direct Bilirubin (0.0-0.5) mg/dL AST (5-37) U/L ALT (0-40) U/L Alkaline Phosphatase (39-117) U/L Troponin I High Sens < 3.5 (<3.5-35.0) ng/L C-Reactive Protein (< or = 0.50) mg/dL Total Protein (6.5-8.0) g/dL Albumin (3.5-5.0) g/dL COVID-19 (RHIANNA) Negative (Negative) COVID-19 Clin Com See Note <DONNELL Arrington - Last Filed: 03/05/22 16:35> Independent Interpretation I performed an independent interpretation of an: EKG <DONNELL Arrington Last Filed: 03/05/22 16:35> Interpretation: Vent. Rate: 084 BPM ? ? Atrial Rate: 084 BPM P-R Int: 192 ms? QRS Dur: 094 ms QT Int: 352 ms ? ? ? P-R-T Axes: 057 020 096 degrees QTc Int: 415 ms ? Normal sinus rhythm Nonspecific T wave abnormality Abnormal ECG When compared with ECG of 18-FEB-2022 14:17, Premature ventricular complexes are no longer Present Nonspecific T wave abnormality now evident in Lateral leads DD/ [id number] <DONNELL Arrington Last Filed: 03/05/22 16:35> Independent Historian Clinical information obtained from an independent historian. History obtained from or confirmed by: Other (patient's daughter) <DONNELL Arrington Last Filed: 03/05/22 16:35> Chronic Conditions Patient?s care impacted by: Diabetes <DONNELL Arrington Last Filed: 03/05/22 16:35> Discharge Plan Discharge Clinical Impression: Dizziness <Miguelina Sneed NP - Last Filed: 03/05/22 12:09> Patient Disposition: Home, Self-Care <Miguelina Sneed NP - Last Filed: 03/05/22 12:09> Instructions: Dizziness (ED) <Miguelina Sneed NP - Last Filed: 03/05/22 12:09> Additional Instructions: Follow up with your primary care provider. Return to the emergency department immediately if your symptoms worsen or if you develop any dizziness, shortness of breath, difficulty breathing, chest pain, blurry vision, loss of vision, nausea, vomiting, abdominal pain, fever, chills, back pain, or any other complaints. <Miguelina Sneed NP - Last Filed: 03/05/22 12:09> Referrals: [facility] [Primary Care Provider] - <Miguelina Sneed NP - Last Filed: 03/05/22 12:09> Interventions: ED Discharge Assessment Last Done: 03/05/22 14:29 <Miguelina Sneed NP - Last Filed: 03/05/22 12:09> Discharge Date/Time: 03/05/22 14:30 <Miguelina Sneed NP - Last Filed: 03/05/22 12:09> Print Language: Bulgarian <Miguelina Sneed NP - Last Filed: 03/05/22 12:09>
[2022-03-05 12:06] VITALS: BP 124/59; PULSE 82; RESP 18; TEMP 36.7; O2SAT 98; BMI 26.6
--- NOTE | 2022-03-05 12:08 | ECG_ITS ---
Test Reason : dizziness Blood Pressure : / mmHG Vent. Rate : 084 BPM Atrial Rate : 084 BPM P-R Int : 192 ms QRS Dur : 094 ms QT Int : 352 ms P-R-T Axes : 057 020 096 degrees QTc Int : 415 ms Normal sinus rhythm Nonspecific T wave abnormality Abnormal ECG When compared with ECG of 18-FEB-2022 14:17, Premature ventricular complexes are no longer Present Nonspecific T wave abnormality now evident in Lateral leads Referred By: Miguelina Sneed Electronically Signed By:Darryl Robertson
[2022-03-05 12:50] LABS: MANUAL DIFF FLAG NO
[2022-03-05 12:56] LABS: Basophils Absolute Auto 0.1 X10*3/uL (0.0-0.2); Basophils Percent Auto 0.6 % (0-2); Eosinophils Absolute Auto 0.3 X10*3/uL (0.0-0.4); Eosinophils Percent Auto 2.8 % (0-4); Hemoglobin 11.6 g/dl (14.0-18.0); Imm Gran Abs Auto 0.04 X10*3/uL (0.00-0.03); Imm Gran Pct Auto 0.4 % (0.0-0.4); Lymphocytes Absolute Auto 2.5 X10*3/uL (1.2-4.9); Lymphocytes Percent Auto 25.2 % (20-40); Mean Corpuscular HGB Conc 32.2 g/dl (31.0-36.0); Mean Corpuscular Hemoglobin 27.4 pg (27.0-33.0); Mean Corpuscular Volume 85.1 fL (80.0-98.0); Mean Platelet Volume 9.9 fL (9.4-12.4); Monocytes Absolute Auto 0.7 X10*3/uL (0.1-1.2); Monocytes Percent Auto 7.3 % (2-11); Neutrophils Absolute Auto 6.3 x10*3/uL (2.0-8.3); Neutrophils Percent Auto 63.7 % (45-73); Platelet Count 252 X10*3/uL (160-400); Red Blood Count 4.23 X10*6/uL (4.60-5.80); Red Cell Distribution Width 12.8 % (11.0-16.0); White Blood Count 9.9 X10*3/uL (4.8-10.8)
[2022-03-05 13:13] LABS: Alanine Aminotransferase 7 U/L (0-40); Alkaline Phosphatase 63 U/L (39-117); Anion Gap 14 (12-20); Aspartate Amino Transferase 14 U/L (5-37); Bilirubin Direct < 0.2 mg/dL (0.0-0.5); Bilirubin Total 0.3 mg/dL (0.0-1.0); Blood Urea Nitrogen 26 mg/dL (9-16); Calcium 9.8 mg/dL (8.4-10.2); Carbon Dioxide 25 mmol/L (22-29); Chloride 101 mmol/L (96-108); Creatinine Clr Calc Pharmacy 55.3; Estimated Glomerular Filt Rate > 60; Glucose Random 182 mg/dL (60-115); Magnesium 1.7 mg/dL (1.6-2.6); Potassium 4.6 mmol/L (3.3-5.1); Sodium 135 mmol/L (135-145); Total Protein 7.7 g/dL (6.5-8.0)
[2022-03-05 13:19] LABS: Troponin-I High Sensitivity < 3.5 ng/L (<3.5-35.0)
[2022-03-05 13:22] LABS: COVID-19 Test Negative (Negative); IDNOW Serial# 16C4AD1C
[2022-03-05 13:44] LABS: Erythrocyte Sedimentation Rate 40 MM/HR (0-15)
[2022-03-05 13:45] VITALS: BP 123/61; PULSE 76
[2022-03-05 13:46] VITALS: BP 118/60; PULSE 85
[2022-03-05 13:47] VITALS: BP 118/62; PULSE 90
[2022-03-05 13:49] VITALS: BP 108/60; PULSE 90; RESP 18; O2SAT 98
--- NOTE | 2022-03-05 14:23 | PC.NURSE ---
Patient presents to ED with report of low BP and high blood sugar daughter admin prescibed insulin at home with good effect no distress noted face symmetriac no deviation of tongue no drift noted. Deneis kianna pain or abdominal pain ambulatory with steady independent gait
== END 2022-03-05 14:30 | disposition home or self-care (01) ==
PROVIDERS: Nurse Practitioner Family; Emergency Provider Student in an Organized Health Care Education/Training Program
DX: R42 Dizziness and giddiness (principal); Z20.822 Contact with and (suspected) exposure to COVID-19; E11.9 Type 2 diabetes mellitus without complications; I10 Essential (primary) hypertension; E78.5 Hyperlipidemia, unspecified
CPT/HCPCS: 36415; 80048; 80076; 83735; 84484; 85025; 85652; 86140; 87635; 93005; 99283; 99284

== ENCOUNTER 2022-03-13 10:49 | Outpatient (REF) | payer MEDICAID, SELFPAY ==
--- NOTE | ~2022-03-13 | MR_ITS ---
EXAMINATION: MR head/brain wo con CLINICAL INFORMATION: Reason for Exam EPISODES OF LT SIDED WEAKNESS. Self-reported dizziness episodes with left neck and shoulder pain. Symptoms for approximately 2 months. Left-sided headache. COMPARISON: CT head 02/18/2022. TECHNIQUE: Unenhanced MRI of the brain FINDINGS: Diffusion-weighted images demonstrate no evidence of acute infarcts. Mild diffuse commensurate prominence of ventricles and sulci is noted. A mild number scattered supratentorial subcortical and periventricular white matter punctate T2 hyperintensities are visualized having the appearance of chronic microangiopathic ischemic changes. Susceptibility weighted images reveal no evidence of acute or chronic hemorrhage within the brain parenchyma. The craniocervical junction cerebellar tonsils are normal in configuration with mild pannus formation noted along the posterior aspect of the dens. No suspicious marrow abnormalities visualized. Partial visualization is made of an at least mild posterior broad-based disc-osteophyte complex at C3-C4 within the incidentally visualized cervical spine on sagittal T1-weighted images. Normal flow-related signal intensity is identified in the major intracranial vessels and dural sinuses. Incidental note is made of bilateral sublenticular prominent perivascular spaces. The orbits and globes are normal in appearance. MR/MR head/brain wo con IMPRESSION: *Mild chronic microangiopathic ischemic changes. *No acute intracranial hemorrhage, tumors or infarcts. *Partial visualization of an at least mild posterior broad-based disc-osteophyte complex at C3-C4.
== END 2022-03-13 10:50 | disposition home or self-care (01) ==
LOC: HO.MRI 10:49
PROVIDERS: Visit Provider Nurse Practitioner Primary Care
DX: R29.818 Other symptoms and signs involving the nervous system (principal); R42 Dizziness and giddiness; E11.40 Type 2 diabetes mellitus with diabetic neuropathy, unspecified; I10 Essential (primary) hypertension; Z79.4 Long term (current) use of insulin; Z86.73 Personal history of transient ischemic attack (TIA), and cerebral infarction without residual deficits; Z91.81 History of falling
CPT/HCPCS: 70551

== ENCOUNTER 2022-08-26 13:46 | Outpatient (REF) | payer MEDICAID, SELFPAY ==
[2022-08-28 08:20] LABS: Hepatitis A Antibody IgG REACTIVE (Nonreactive); ~Hepatitis A Antibody IgG 11.29 S/CO (0.00-0.99)
== END 2022-08-26 13:47 | disposition home or self-care (01) ==
LOC: HO.LAB 13:46
PROVIDERS: Visit Provider Internal Medicine
DX: D50.9 Iron deficiency anemia, unspecified (principal); R19.7 Diarrhea, unspecified; R19.4 Change in bowel habit; Z79.1 Long term (current) use of non-steroidal anti-inflammatories (NSAID); Z11.59 Encounter for screening for other viral diseases
CPT/HCPCS: 36415; 82728; 83540; 85027; 86704; 86706; 86708; 86803; 87340; 99202

== ENCOUNTER 2022-12-03 12:19 | Day surgery (SDC) | payer MEDICAID, SELFPAY ==
[2022-12-01 08:32] VITALS: BMI 29.0
--- NOTE | 2022-12-02 11:46 | HO.ANESPROP2 ---
Documented by User: Ashli Nicole NP 12/02/22 11:48 HPI - Anesthesia Eval Consult details Narrative: 72yo M for Upper Endoscopy and Colonoscopy PMF Active Problems Active Problems: All Active Problems (Updated 08/26/22 @ 14:26 by Leigha Tripp MD) supervisor intermediates (current) use of non-steroidal anti-inflammatories (nsaid) (Acute) Change in bowel habit (Acute) Encounter for hepatitis C screening test for low risk patient (Acute) Anemia (Acute) Past Medical History Medical History Depression Diabetes H/O renal calculi Hyperlipemia Hypertension Peripheral neuropathy Family History Family History Mother No problems noted. Father No problems noted. Surgical History Surgical History History of umbilical hernia repair Hx of colonoscopy Social History Social History Alcohol intake: never Patient Tobacco Use Status: Former Tobacco user Are you DNR?: No Advance Directives: No Advance Directives Information Provided: Yes Current occupational status: employed Current occupation: right handed Meds Allergies Allergy/AdvReac Type Severity Reaction Status Date / Time No Known Allergies Allergy Verified 12/02/22 11:48 Home Medications Medication Instructions Recorded Confirmed Last Taken Type amlodipine 2.5 mg tablet 5 mg PO QAM 08/26/22 Unknown History aspirin 81 mg tablet,delayed 81 mg PO DAILY 08/26/22 Unknown History release blood pressure test kit-large #1 ea 08/26/22 Unknown History clotrimazole 1 % topical cream appl topical BID 08/26/22 Unknown History cyanocobalamin (vitamin B-12) 1,000 mcg PO QAM 08/26/22 Unknown History 1,000 mcg tablet ferrous sulfate 325 mg (65 mg 325 mg PO QAM 08/26/22 Unknown History iron) tablet,delayed release insulin glargine 100 unit/mL 12 unit subcut BID 08/26/22 Unknown History subcutaneous solution (Lantus U-100 Insulin) ketoconazole 2 % shampoo topical 2XW 08/26/22 Unknown History lisinopril 40 mg tablet 40 mg PO DAILY 08/26/22 Unknown History metformin 1,000 mg tablet 1,000 mg PO 08/26/22 Unknown History pravastatin 40 mg tablet 40 mg PO BEDTIME 08/26/22 Unknown History tramadol 50 mg tablet 50 mg PO Q8H PRN severe pain 08/26/22 Unknown History Exam Exam Date and Time: December 02, 2022 1146 Height,Weight and Vital Signs: Height 5 ft 7 in Weight 83.915 kg Pertinent Lab Results Pertinent Lab Results: Laboratory Tests 03/05/22 08/26/22 12:39 14:49 WBC 8.5 Hgb 10.7 L Hct 33.0 L Plt Count 228 Sodium 135 Potassium 4.6 Chloride 101 Carbon Dioxide 25 BUN 26 H Creatinine 1.15 Narrative Narrative: EKG 02/2022 Vent. Rate : 084 BPM Atrial Rate : 084 BPM P-R Int : 192 ms QRS Dur : 094 ms QT Int : 352 ms P-R-T Axes : 057 020 096 degrees QTc Int : 415 ms Normal sinus rhythm Nonspecific T wave abnormality Abnormal ECG When compared with ECG of 18-FEB-2022 14:17, Premature ventricular complexes are no longer Present Nonspecific T wave abnormality now evident in Lateral leads Assessment and Plan Assessment Anesthesia Assessment: Chart Reviewed Documented by User: Prince Chandra MD 12/03/22 14:54 [facility] Past Medical History Medical History Depression Diabetes H/O renal calculi Hyperlipemia Hypertension Peripheral neuropathy Family History Family History Mother No problems noted. Father No problems noted. Family history of problems with anesthesia: No Surgical History Surgical History History of umbilical hernia repair Hx of colonoscopy History of Problems with Anesthesia: No Social History Social History Alcohol intake: never Patient Tobacco Use Status: Former Tobacco user Are you DNR?: No Advance Directives: No Advance Directives Information Provided: Yes Current occupational status: employed Current occupation: right handed Meds Allergies Allergy/AdvReac Type Severity Reaction Status Date / Time No Known Allergies Allergy Verified 12/02/22 11:48 Home Medications Medication Instructions Recorded Confirmed Last Taken Type amlodipine 2.5 mg tablet 5 mg PO QAM 08/26/22 Unknown History aspirin 81 mg tablet,delayed 81 mg PO DAILY 08/26/22 Unknown History release blood pressure test kit-large #1 ea 08/26/22 Unknown History clotrimazole 1 % topical cream appl topical BID 08/26/22 Unknown History cyanocobalamin (vitamin B-12) 1,000 mcg PO QAM 08/26/22 Unknown History 1,000 mcg tablet ferrous sulfate 325 mg (65 mg 325 mg PO QAM 08/26/22 Unknown History iron) tablet,delayed release insulin glargine 100 unit/mL 12 unit subcut BID 08/26/22 Unknown History subcutaneous solution (Lantus U-100 Insulin) ketoconazole 2 % shampoo topical 2XW 08/26/22 Unknown History lisinopril 40 mg tablet 40 mg PO DAILY 08/26/22 Unknown History metformin 1,000 mg tablet 1,000 mg PO 08/26/22 Unknown History pravastatin 40 mg tablet 40 mg PO BEDTIME 08/26/22 Unknown History tramadol 50 mg tablet 50 mg PO Q8H PRN severe pain 08/26/22 Unknown History Exam Airway Mallampati Class: II TM Dist: >3cm Neck ROM: Limited Heart: rrr Lungs: cta Assessment and Plan Assessment Anesthesia Assessment: Anesthesia Plan Discussed Final Anesthetic Review Family History of Problems with Anesthesia: No History of Problems with Anesthesia: No NPO: Yes ASA Class: III Final Preanesthetic Review: No Changes in Pt Med Stat, Meds/Allgs Chart Reviewed, Consent Obtained/Reviewed and Anes Risks/Benef Reviewed Patient Risk: Intermediate Procedure Risk: Intermediate Anesthetic Plan Anesthetic Plan: MAC: and Agree w/ Assess. and Plan Disposition: Standard PACU
[2022-12-03 12:23] VITALS: BP 172/75; PULSE 80; RESP 18; TEMP 36.6; O2SAT 98
[2022-12-03 12:47] LABS: Glucose, Whole Blood 125 mg/dL (60-115)
[2022-12-03] MEDS: Lactated Ringers 1,000 ML 100 ML IVCONT (12:49)
--- NOTE | 2022-12-03 14:27 | MHC.SHP ---
Pre-Procedural Eval Section A Date of Service: 12/03/22 Section B Chief Complaint: Change in bowel habit,anemia, Details of Present Illness: PMH: Depression Diabetes H/O renal calculi Hyperlipemia Hypertension Peripheral neuropathy Surgical History History of umbilical hernia repair Hx of colonoscopy Present Medications: see Short Stay Collaborative assessment Allergies: Allergies Allergy/AdvReac Type Severity Reaction Status Date / Time No Known Allergies Allergy Verified 12/02/22 11:48 Review of Systems Review of Systems Comment: Ten point ROS negative Exam Exam Comment: Gen appear: No acute distress HEENT: no icterus Chest: No overt resp distress Abd: soft, nontender, nondistended Psych: Stable affect, answering questions appropriately Neuro: A/Ox3 noted to move all extremities spontaneously Ext: no peripheral edema Plan Diagnosis/Plan: Unchanged I have reviewed the history and physical and performed a pertinent physical examination on my patient. No changes have occurred unless specified. Time Spent With Patient Time: Total time managing care of this patient today ____ minutes.
--- NOTE | 2022-12-03 15:57 | P.OP_ITS ---
Operative Note Operative Note Date of Service: 12/03/22 Narrative: Procedure:?Esophagogastroduodenoscopy and colonoscopy Endoscopist:?Leigha Tripp MD Indication:?Anemia, change in bowel habits Anesthesia Provider:?Dr Prince Chandra MD Anesthesia Type:?MAC Instrument:?Olympus GIF-H190, PCF-H190L EGD Procedure:?? The procedure, indications, preparation and potential complications were reviewed with the patient who indicated understanding and gave written informed consent to proceed. An dental nurse assisted with the encounter. A physical exam was performed. The endoscope was introduced through the mouth, and advanced to the second part of duodenum. The mucosa was carefully examined on slow withdrawal of the endoscope. There were no immediate complications. Patient tolerated the procedure well. EGD Findings:? * Esophagus:? Normal mucosa noted in the entire esophagus. The Z-line is at 35 cm. * Stomach:? Normal mucosa was noted in the entire stomach. Retroflexion performed in the fundus. Cold forceps biopsies were taken to rule out H Pylori. * Duodenum:? Normal duodenal mucosa noted to the extent examined. Major papilla was noted to be prominent and protruding into the lumen. Cold forceps biopsies were taken to r/o ampullary adenoma. Colonoscopy Procedure:? The patient was then turned for the colonoscopy. A digital rectal exam was performed which was abnormal for large external hemorrhoids.? A distal attachment cap was affixed to the tip of the scope and the colonoscope was then inserted through the anus and advanced through the colon to the cecum at 70 cm. Appendiceal orifice and ileocecal valve were identified. Mucosa was carefully examined under high definition white light as the instrument was slowly withdrawn in a retrograde panoramic fashion. Retroflexion was performed in rectum. The procedure was not difficult. There were no immediate obvious complications. The quality of the prep was BBPS: 1+2+1 = inadequate Withdrawal time: 6 minutes Limitations: Poor prep Findings: Mucosa: Solid and semi solid stool was present in sigmoid colon as well as cecum precluding complete visualisation. No large masses were noted. Protruding lesions: * Medium internal hemorrhoids with stigmata of recent bleeding. Impression: 1. Normal esophagus 2. Normal stomach (biopsy) 3. Normal duodenum (biopsy) 4. Prominent major papilla (biopsy) 5. Poor prep 6. Hemorrhoids Recommendations:?? * Await pathology results. * Will need a repeat colonoscopy for complete evaluation
[2022-12-03 16:40] VITALS: BP 101/61; PULSE 81; RESP 16; TEMP 36.7; O2SAT 95
[2022-12-03 16:55] VITALS: BP 162/84; PULSE 88; RESP 16; TEMP 37.1; O2SAT 97
== END 2022-12-03 17:16 | disposition home or self-care (01) ==
PROVIDERS: PCP Nurse Practitioner Primary Care; Visit Provider Internal Medicine
PROC: (CPT 45378; principal; 2022-12-03 14:30)
DX: D64.9 Anemia, unspecified (principal); R19.4 Change in bowel habit; K64.8 Other hemorrhoids; K29.50 Unspecified chronic gastritis without bleeding; B96.81 Helicobacter pylori [H. pylori] as the cause of diseases classified elsewhere; K31.89 Other diseases of stomach and duodenum
CPT/HCPCS: 45378; 43239; 82947; 88305; 88342

== ENCOUNTER → 2022-12-03 12:19 | Outpatient (BNV) | payer MEDICAID, SELFPAY | PROVIDERS: PCP Nurse Practitioner Primary Care; Visit Provider Internal Medicine | DX: D64.9 Anemia, unspecified (principal); Z91.198 Patient's noncompliance with other medical treatment and regimen for other reason; K31.7 Polyp of stomach and duodenum | CPT/HCPCS: 43239; 45378 ==

== ENCOUNTER 2023-12-24 14:26 | Outpatient (REF) | payer MEDICAID, SELFPAY ==
[2023-12-24 17:00] LABS: Alanine Aminotransferase 12 U/L (0-40); Alkaline Phosphatase 62 U/L (39-117); Anion Gap 12 (12-20); Aspartate Amino Transferase 22 U/L (5-37); Bilirubin Direct 0.1 mg/dL (0.0-0.5); Bilirubin Total 0.3 mg/dL (0.0-1.0); Blood Urea Nitrogen 15 mg/dL (9-16); Calcium 10.1 mg/dL (8.4-10.2); Carbon Dioxide 23 mmol/L (22-29); Chloride 106 mmol/L (96-108); Cholesterol 154 mg/dL (<200); Estimated Glomerular Filt Rate > 60; Glucose Random 105 mg/dL (60-115); HDL Cholesterol 38 mg/dL (>40); LDL Cholesterol Calculated 98 mg/dL (<100); Sodium 137 mmol/L (135-145); Total Protein 7.7 g/dL (6.5-8.0); Triglycerides 93 mg/dL (<150)
== END 2023-12-24 14:27 | disposition home or self-care (01) ==
LOC: HO.HHCL 14:26
PROVIDERS: Visit Provider Internal Medicine
DX: E11.40 Type 2 diabetes mellitus with diabetic neuropathy, unspecified (principal); E78.2 Mixed hyperlipidemia; Z79.4 Long term (current) use of insulin
CPT/HCPCS: 36415; 80048; 80061; 80076

== ENCOUNTER 2024-01-04 09:09 | Outpatient (REF) | payer MEDICAID, SELFPAY ==
[2024-01-04 11:50] LABS: Creatinine Urine 38.76 mg/dL; Microalbum/Creatinine Ratio Ur 77.3 ug/mg cr (<30)
== END 2024-01-04 09:10 | disposition home or self-care (01) ==
LOC: HO.HHCL 09:09
PROVIDERS: Visit Provider Internal Medicine
DX: E11.40 Type 2 diabetes mellitus with diabetic neuropathy, unspecified (principal); Z79.4 Long term (current) use of insulin
CPT/HCPCS: 82043; 82570

== ENCOUNTER 2024-02-09 16:01 | Emergency (ER) | payer MEDICAID, SELFPAY ==
--- NOTE | ~2024-02-09 | CT_ITS ---
EXAMINATION: CT ABDOMEN AND PELVIS WITHOUT CONTRAST CLINICAL INFORMATION: Left flank pain COMPARISON: 06/16/2016 TECHNIQUE: Multidetector volumetric imaging was performed from the superior aspect of the liver through the pubic symphysis. Sagittal and coronal reformatted images were obtained on the technologist's workstation. This CT examination was performed using dose optimization techniques as appropriate, variously including the following: *Automated exposure control *Adjustment of mA and/or kV according to patient size (this includes techniques or standardized protocols for targeted exams where dose is matched to indication/reason for exam; i.e. extremities or head) *Use of iterative reconstruction technique DLP: 572 mGy-cm FINDINGS: LUNG BASES: Scattered pulmonary cysts. ABDOMINAL AND PELVIC WALL: Unremarkable. LIVER AND BILIARY TREE: Unremarkable. GALLBLADDER: Unremarkable. PANCREAS: Unremarkable. SPLEEN: Unremarkable. ADRENAL GLANDS: Unremarkable. KIDNEYS AND URETERS: Multiple punctate bilateral nonobstructing stones. GASTROINTESTINAL TRACT: Unremarkable. Appendix is within normal limits. VASCULAR: Aortic atherosclerotic calcifications, no aneurysmal dialation. LYMPH NODES/PERITONEUM: No lymphadenopathy. FREE FLUID: None. BLADDER: Unremarkable. PELVIC VISCERA: Prostatomegaly. OSSEOUS STRUCTURES: Degenerative changes of the spine. CT/CT abdomen pelvis wo IV con IMPRESSION: * No acute intra-abdominal abnormality. * Bilateral nonobstructing nephrolithiasis. Electronically signed by: Jeni Carreon MD 02/09/2024 06:36 PM [facility]
[2024-02-09 16:19] VITALS: BP 170/82; PULSE 74; O2SAT 100
[2024-02-09 16:28] VITALS: BP 151/68; PULSE 80; RESP 20; TEMP 37.2; O2SAT 100; BMI 28.2
[2024-02-09 16:34] VITALS: RESP 20
--- NOTE | 2024-02-09 16:37 | ED.GENADULT ---
HPI - General Adult General Chief complaint: Extremity Injury, Lower Stated complaint: L SIDED PAIN X 1 WEEK Time Seen by Provider: 02/09/24 16:20 History of Present Illness HPI narrative: patient is a 73-year-old male presents today with stepping the wrong way and since then been having pain in the left flank and left gluteal area. Denies any bowel or urinary incontinence. Denies any focal weakness. Patient's symptoms made worse this morning when he attempted to sit on the toilet. He dropped onto the seat and the pain got worse. Denies any radiation of pain beyond the gluteal area. Patient is from home. Not on any blood thinners. Has a history of hypertension history of diabetes been taking tramadol for extreme pain. Related Data Home Medications ?Medication ?Instructions ?Recorded ?Confirmed amlodipine 2.5 mg tablet 5 mg PO QAM 08/26/22 06/11/23 aspirin 81 mg tablet,delayed 81 mg PO DAILY 08/26/22 06/11/23 release blood pressure test kit-large #1 ea 08/26/22 clotrimazole 1 % topical cream 1 appl topical BID 08/26/22 06/11/23 cyanocobalamin (vitamin B-12) 1,000 mcg PO QAM 08/26/22 06/11/23 1,000 mcg tablet ferrous sulfate 325 mg (65 mg 325 mg PO QAM 08/26/22 06/11/23 iron) tablet,delayed release insulin glargine 100 unit/mL 12 unit subcut BID 08/26/22 06/11/23 subcutaneous solution (Lantus U-100 Insulin) ketoconazole 2 % shampoo 1 appl topical 2XW 08/26/22 06/11/23 lisinopril 40 mg tablet 40 mg PO DAILY 08/26/22 06/11/23 metformin 1,000 mg tablet 1,000 mg PO BID 08/26/22 06/11/23 pravastatin 40 mg tablet 40 mg PO BEDTIME 08/26/22 06/11/23 tramadol 50 mg tablet 50 mg PO Q8H PRN severe pain 08/26/22 06/11/23 dulaglutide 0.75 mg/0.5 mL 0.75 mg subcut QWEEK 06/11/23 [facility] Previous Rx's ?Medication ?Instructions ?Recorded peg 3350-electrolytes 236 240 ml PO Q10M colonoscopy #4,000 04/09/23 gram-22.74 gram-6.74 gram-5.86 mL gram solution (Golytely) ibuprofen 400 mg tablet 400 mg PO Q6H PRN pain #20 tabs 02/09/24 Allergies Allergy/AdvReac Type Severity Reaction Status Date / Time No Known Allergies Allergy Verified 02/09/24 16:33 Review of Systems Review of Systems: Positive left flank pain Yes all other systems are reviewed and are negative [facility] Past Medical History Attestation statement: The following information was validated with the patient. Source: unable to obtain Medical History Depression H/O renal calculi Peripheral neuropathy Hyperlipemia Diabetes Hypertension Surgical History History of esophagogastroduodenoscopy (EGD) Hx of colonoscopy History of umbilical hernia repair Family History Family History Mother No problems noted. Father No problems noted. Social History Social History Alcohol intake: never Patient Tobacco Use Status: Former Tobacco user Smoked in Last 30 Days: No Use of substances other than those prescribed or required for medical reasons: No Advance Directives: No Advance Directives Information Provided: No Do you have a plan to hurt others: No Plan Current occupational status: employed Current occupation: right handed Physical Exam ED Vital Signs: Vital Signs - 24 hr 02/09/24 16:28 02/09/24 16:34 02/09/24 19:04 Temperature 99.0 F 98.2 F Pulse Rate 80 80 Respiratory Rate 20 20 20 Blood Pressure 151/68 H 150/55 H Pulse Oximetry 100 98 Oxygen Delivery Method Room Air Room Air BMI result Body Mass Index 28.2 Appearance: Alert. Oriented X3. No acute distress. Eyes: Pupils equal, round and reactive to light. ENT: Pharynx normal. Neck: Normal inspection. Neck supple. No lymph nodes noted. No crepitus CVS: Normal heart rate and rhythm. Pulses normal. Normal S1 and S2 Respiratory: No respiratory distress. Breath sounds normal. No Wheezing. No rales Abdomen: Soft and nontender. No rigidity. No distention. good BS x4 Skin: Skin warm and dry. Normal skin color. Normal skin turgor. Extremities: No lower extremity edema. Neurovascular intact to all extremities. No Lacerations. No Rash Neuro: Oriented X 3. No motor deficit. No sensory deficit. Moving all extermities. No slurred speech Medications Administered Discontinued Medications Generic Name Dose Route Start Last Admin Trade Name Pippa PRN Reason Stop Dose Admin Hydromorphone HCl 0.5 mg 02/09/24 16:36 02/09/24 17:13 Hydromorphone Hcl 0.5 Mg/0.5 Ml Syringe IVPUSH 02/09/24 16:37 0.5 mg ONCE ONE Administration Protocol Ketorolac Tromethamine 15 mg 02/09/24 16:36 02/09/24 17:12 Ketorolac Tromethamine 15 Mg/Ml Vial IVPUSH 02/09/24 16:37 15 mg ONCE ONE Administration Medical Decision Making Medical Decision Making [facility] Narrative: no bowel urinary incontinence. No focal weakness. No signs of cauda equinus syndrome. CT scan of the abdomen pelvis showed no acute fracture. No diverticulitis. No kidney stone. White count is normal. Hemoglobin is 10.4 proximally baseline. Patient is electrolyte was normal. Urine showed no signs of infection. Pain is now somewhat control. Blood pressure is okay. Will discharge patient home close follow-up on an outpatient basis. Differential Diagnosis Differential Diagnoses: The differential diagnosis associated with the presentation includes Fracture, retroperitoneal bleed, kidney stone, cauda equinus syndrome, back pain Admission/Observation Consideration of admission/observation: Escalation of care including admission/observation considered Lab Data [facility] Lab Attestation statement: I reviewed the patient's lab results. 02/09/24 17:08 02/09/24 17:08 Labs: Lab Results 02/09/24 02/09/24 Range/Units 17:08 19:24 WBC 7.7 (4.8-10.8) X10*3/uL RBC 3.57 L (4.60-5.80) X10*6/uL Hgb 10.4 L (14.0-18.0) g/dl Hct 31.3 L (42.0-52.0) % MCV 87.7 (80.0-98.0) fL MCH 29.1 (27.0-33.0) pg MCHC 33.2 (31.0-36.0) g/dl RDW 12.3 (11.0-16.0) % Plt Count 234 (160-400) X10*3/uL MPV 10.3 (9.4-12.4) fL Immature Gran % (Auto) 0.1 (0.0-0.4) % Neut % (Auto) 70.0 (45-73) % Lymph % (Auto) 21.5 (20-40) % [place] % (Auto) 5.2 (2-11) % Eos % (Auto) 2.7 (0-4) % Baso % (Auto) 0.5 (0-2) % Lymph # (Auto) 1.7 (1.2-4.9) X10*3/uL [place] # (Auto) 0.4 (0.1-1.2) X10*3/uL Eos # (Auto) 0.2 (0.0-0.4) X10*3/uL Baso # (Auto) 0.0 (0.0-0.2) X10*3/uL Abs Immat Gran (auto) 0.01 (0.00-0.03) X10*3/uL Absolute Neuts (auto) 5.4 (2.0-8.3) x10*3/uL Absolute Nucleated RBC 0.000 (0.0-0.012) X10*3/uL Nucleated RBC % (auto) 0.0 (0.0-0.2) /100WBC Smear Tech's Comments VERIFIED Sodium 140 (135-145) mmol/L Potassium 4.3 (3.3-5.1) mmol/L Chloride 109 H (96-108) mmol/L Carbon Dioxide 23 (22-29) mmol/L Anion Gap 12 (12-20) BUN 19 H (9-16) mg/dL Creatinine 1.06 (0.5-1.4) mg/dL Estim Creat Clear Calc 61.6 Estimated GFR > 60 Random Glucose 138 H (60-115) mg/dL Calcium 9.2 D (8.4-10.2) mg/dL Total Bilirubin 0.2 (0.0-1.0) mg/dL Direct Bilirubin < 0.2 (0.0-0.5) mg/dL AST 17 (5-37) U/L ALT 10 (0-40) U/L Alkaline Phosphatase 51 (39-117) U/L Total Protein 7.3 (6.5-8.0) g/dL Albumin 4.0 (3.5-5.0) g/dL Urine Color Yellow Urine Appearance Clear Urine pH 7.5 (5.0-9.0) Ur Specific [place] 1.020 (1.005-1.025) Urine Protein Negative (Neg-Trace) mg/dL Urine Glucose (UA) Negative (Negative) mg/dL Urine Ketones Negative (Negative) mg/dL Urine Blood Negative (Negative) Urine Nitrite Negative (Negative) Ur Leukocyte Esterase Negative (Negative) Urine RBC 0-2 (0-2) /HPF Urine WBC 0-5 (0-5) /HPF Ur Squamous Epith Cells 0-2 (0-2) /HPF Urine Bacteria None Seen (None Seen) Hyaline Casts 0-2 (0-2) /LPF Independent Interpretation I performed an independent interpretation of an: CT Scan ( grossly negative) Radiology Impression Discussion of test interpretation with radiology: I have reviewed the radiologist's reading. Social Determinants Patient?s care significantly limited by Social Determinants of Health including: Problems related to primary support group Discharge Plan Discharge Clinical Impression: Back pain Patient Disposition: Home, Self-Care Instructions: Back Pain (ED) Prescriptions: New ibuprofen 400 mg tablet 400 mg PO Q6H PRN (Reason: pain) Qty: 20 0RF No Action peg 3350-electrolytes [Golytely] 236-22.74-6.74 -5.86 gram recon soln 240 ml PO Q10M Qty: 4000 0RF Rx Instructions: as per split prep instructions, until fecal effluent is clear Trulicity 0.75 mg/0.5 mL pen injector 0.75 mg subcut QWEEK Rx Instructions: takes Wednesday ferrous sulfate 325 mg (65 mg iron) tablet,delayed release (DR/EC) 325 mg PO QAM tramadol 50 mg tablet 50 mg PO Q8H PRN (Reason: severe pain) clotrimazole 1 % cream 1 appl topical BID insulin glargine [Lantus U-100 Insulin] 100 unit/mL solution 12 unit subcut BID metformin 1,000 mg tablet 1,000 mg PO BID ketoconazole 2 % shampoo 1 appl topical 2XW cyanocobalamin (vitamin B-12) 1,000 mcg tablet 1,000 mcg PO QAM amlodipine 2.5 mg tablet 5 mg PO QAM lisinopril 40 mg tablet 40 mg PO DAILY aspirin 81 mg tablet,delayed release (DR/EC) 81 mg PO DAILY pravastatin 40 mg tablet 40 mg PO BEDTIME (DME) blood pressure test kit-large Kit See Rx Instructions .ROUTE QAM Qty: 1 Rx Instructions: As directed Referrals: Physician,Vivian J [Primary Care Provider] - 02/11/24 Print Language: Korean
[2024-02-09] MEDS: Ketorolac Tromethamine 15 MG/ML VIAL IVPUSH (17:12)
[2024-02-09] MEDS: HYDROmorphone HCl 0.5 MG/0.5 ML SYRINGE IVPUSH (17:13)
[2024-02-09 17:21] LABS: Basophils Percent Auto 0.5 % (0-2); Hematocrit 31.3 % (42.0-52.0); Hemoglobin 10.4 g/dl (14.0-18.0); Mean Corpuscular HGB Conc 33.2 g/dl (31.0-36.0); Mean Corpuscular Hemoglobin 29.1 pg (27.0-33.0); Mean Corpuscular Volume 87.7 fL (80.0-98.0); PLT CLUMP 1; Red Blood Count 3.57 X10*6/uL (4.60-5.80); SCAN SMEAR FLAG 1
[2024-02-09 17:23] LABS: Eosinophils Absolute Auto 0.2 X10*3/uL (0.0-0.4); Eosinophils Percent Auto 2.7 % (0-4); Imm Gran Abs Auto 0.01 X10*3/uL (0.00-0.03); Imm Gran Pct Auto 0.1 % (0.0-0.4); Lymphocytes Absolute Auto 1.7 X10*3/uL (1.2-4.9); Lymphocytes Percent Auto 21.5 % (20-40); MANUAL DIFF FLAG SCAN; Mean Platelet Volume 10.3 fL (9.4-12.4); Monocytes Absolute Auto 0.4 X10*3/uL (0.1-1.2); Monocytes Percent Auto 5.2 % (2-11); Neutrophils Absolute Auto 5.4 x10*3/uL (2.0-8.3); Red Cell Distribution Width 12.3 % (11.0-16.0)
[2024-02-09 17:37] LABS: Anion Gap 12 (12-20); Aspartate Amino Transferase 17 U/L (5-37); Bilirubin Direct < 0.2 mg/dL (0.0-0.5); Bilirubin Total 0.2 mg/dL (0.0-1.0); Blood Urea Nitrogen 19 mg/dL (9-16); Calcium 9.2 mg/dL (8.4-10.2); Carbon Dioxide 23 mmol/L (22-29); Chloride 109 mmol/L (96-108); Creatinine Clr Calc Pharmacy 61.6; Estimated Glomerular Filt Rate > 60; Glucose Random 138 mg/dL (60-115); Potassium 4.3 mmol/L (3.3-5.1); Sodium 140 mmol/L (135-145); Total Protein 7.3 g/dL (6.5-8.0)
[2024-02-09 17:40] LABS: White Blood Count 7.7 X10*3/uL (4.8-10.8)
[2024-02-09 17:43] LABS: Alanine Aminotransferase 10 U/L (0-40); Alkaline Phosphatase 51 U/L (39-117)
[2024-02-09 17:44] LABS: Platelet Count 234 X10*3/uL (160-400); SLIDE REVIEW VERIFIED
[2024-02-09 19:04] VITALS: BP 150/55; PULSE 80; RESP 20; TEMP 36.8; O2SAT 98
[2024-02-09 19:39] LABS: Appearance Urine Clear; Color Urine Yellow; Glucose Urine UA Negative (Negative); Leukocyte Esterase Urine Negative (Negative); Nitrite Urine Negative (Negative); PH 7.5 (5.0-9.0); Urine Blood Negative (Negative); Urine Ketones Negative (Negative); Urine Protein Negative (Neg-Trace)
[2024-02-09 19:42] LABS: Bacteria Urine None Seen (None Seen); Hyaline Casts Urine 0-2 /LPF (0-2); RBC Urine 0-2 /HPF (0-2); Squamous Epithelial Cell Urine 0-2 /HPF (0-2); WBC Urine 0-5 /HPF (0-5)
[2024-02-09 20:03] VITALS: BP 150/55; PULSE 80; RESP 16; TEMP 36.8; O2SAT 98
== END 2024-02-09 20:12 | disposition home or self-care (01) ==
PROVIDERS: Emergency Provider Emergency Medicine Emergency Medical Services
DX: M54.50 Low back pain, unspecified (principal); E11.9 Type 2 diabetes mellitus without complications; I10 Essential (primary) hypertension; Z79.4 Long term (current) use of insulin; Z79.899 Other long term (current) drug therapy; Z87.891 Personal history of nicotine dependence
CPT/HCPCS: 36415; 74176; 80048; 80076; 81001; 85025; 96374; 96375; 99284; J1171; J1885

== ENCOUNTER 2024-05-27 20:46 | Emergency (ER) | payer MEDICAID, SELFPAY ==
--- NOTE | 2024-05-27 | ECG_ITS ---
Test Reason : CP Blood Pressure : */* mmHG Vent. Rate : 86 BPM Atrial Rate : 86 BPM P-R Int : 226 ms QRS Dur : 92 ms QT Int : 368 ms P-R-T Axes : 65 -1 56 degrees QTcB Int : 440 ms Sinus rhythm with 1st degree A-V block Otherwise normal ECG When compared with ECG of 05-Mar-2022 12:34, SC interval has increased Referred By: Generic ED Physician Electronically Signed By: BLAISE MARTINEZ
--- NOTE | ~2024-05-27 | XR_ITS ---
CLINICAL HISTORY: cp 1 view chest x-ray Comparison: Chest x-ray from 02/18/2022 Findings: No consolidation, pneumothorax or pleural effusion. Mild right basilar atelectasis and/or pneumonitis. Mild emphysematous changes are redemonstrated. Cardiac silhouette and mediastinal contours accentuated by AP technique. Degenerative changes include imaged shoulders and AC joints. IMPRESSION: 1. No consolidation. 2. Mild right basilar atelectasis. This document has been electronically signed by: Nam Sheffield MD on 05/27/2024 22:05:30
[2024-05-27 20:49] VITALS: BP 153/75; BP 172/70; PULSE 85; PULSE 90; RESP 16; TEMP 36.9; O2SAT 100; BMI 28.4
--- NOTE | 2024-05-27 20:58 | ED_ITS ---
HPI - Chest Pain General Chief Complaint: Chest Pain Stated Complaint: sudden onset chest pain Time Seen by Provider: 05/27/24 20:58 Source: patient Mode of arrival: ambulatory Limitations: no limitations History of Present Illness ED Provider: HPI narrative: Patient with history of diabetes, no history of coronary artery disease apparently had an argument with his daughter soon after argument patient noted mid chest pain which is radiating to the upper part of the mid chest feel the like burning sensation does have history of acid reflux in the past but this feels slightly different no diaphoresis no shortness a breath pain does not increased with movements Related Data Home Medications ?Medication ?Instructions ?Recorded ?Confirmed amlodipine 2.5 mg tablet 5 mg PO QAM 08/26/22 06/11/23 aspirin 81 mg tablet,delayed 81 mg PO DAILY 08/26/22 06/11/23 release blood pressure test kit-large #1 ea 08/26/22 clotrimazole 1 % topical cream 1 appl topical BID 08/26/22 06/11/23 cyanocobalamin (vitamin B-12) 1,000 mcg PO QAM 08/26/22 06/11/23 1,000 mcg tablet ferrous sulfate 325 mg (65 mg 325 mg PO QAM 08/26/22 06/11/23 iron) tablet,delayed release insulin glargine 100 unit/mL 12 unit subcut BID 08/26/22 06/11/23 subcutaneous solution (Lantus U-100 Insulin) ketoconazole 2 % shampoo 1 appl topical 2XW 08/26/22 06/11/23 lisinopril 40 mg tablet 40 mg PO DAILY 08/26/22 06/11/23 metformin 1,000 mg tablet 1,000 mg PO BID 08/26/22 06/11/23 pravastatin 40 mg tablet 40 mg PO BEDTIME 08/26/22 06/11/23 tramadol 50 mg tablet 50 mg PO Q8H PRN severe pain 08/26/22 06/11/23 dulaglutide 0.75 mg/0.5 mL 0.75 mg subcut QWEEK 06/11/23 subcutaneous pen injector (Trulicity) Previous Rx's ?Medication ?Instructions ?Recorded peg 3350-electrolytes 236 240 ml PO Q10M colonoscopy #4,000 04/09/23 gram-22.74 gram-6.74 gram-5.86 mL gram solution (Golytely) ibuprofen 400 mg tablet 400 mg PO Q6H PRN pain #20 tabs 02/09/24 pantoprazole 40 mg tablet,delayed 40 mg PO DAILY #30 tabs 05/28/24 release (Protonix) sucralfate 1 gram tablet 1 g PO TID #90 tabs 05/28/24 Allergies Allergy/AdvReac Type Severity Reaction Status Date / Time No Known Allergies Allergy Verified 05/27/24 20:56 Review of Systems 2 Review of Systems: Yes all other systems are reviewed and are negative [facility] Past Medical History Medical History Depression H/O renal calculi Peripheral neuropathy Hyperlipemia Diabetes Hypertension Surgical History History of esophagogastroduodenoscopy (EGD) Hx of colonoscopy History of umbilical hernia repair Family History Family History Mother No problems noted. Father No problems noted. Social History Social History Alcohol intake: never Patient Tobacco Use Status: Former Tobacco user Smoked in Last 30 Days: No Use of substances other than those prescribed or required for medical reasons: No Advance Directives: No Advance Directives Information Provided: No Do you have a plan to hurt others: No Plan Current occupational status: employed Current occupation: right handed Physical Exam 2 Vital Signs: Vital Signs: Last Vital Signs Temp 98.3 F 05/27/24 22:18 Pulse 84 05/27/24 22:18 Resp 15 05/27/24 22:18 BP 161/73 H 05/27/24 22:18 Pulse Ox 97 05/27/24 22:18 O2 Del Method Room Air 05/27/24 22:18 BMI result Body Mass Index 28.4 Appearance: Alert. Oriented X3. No acute distress. Eyes: No pallor or icterus ENT: Pharynx normal. Oral Mucosa moist Neck: Normal inspection. Neck supple. CVS: Normal heart rate and rhythm. Pulses normal. Respiratory: No respiratory distress. Equal air entry bilateral, no wheezing/rales/rhonchi Abdomen: Soft and nontender. Bowel sounds are present, no mass palpable, no CVA tenderness Skin: Skin warm and dry. Normal skin color. Normal skin turgor. Extremities: No lower extremity edema. No calf tenderness Neuro: Oriented X 3. No motor deficit. No sensory deficit.No cerebellar signs , cranial nerves II-XII intact Medications Administered Discontinued Medications Generic Name Dose Route Start Last Admin Trade Name Freq PRN Reason Stop Dose Admin Al Hydroxide/Mg Hydroxide 30 ml 05/27/24 22:05 05/27/24 22:15 Magnesium Hydrox/Alum Hydrox 30 Ml Oral.Susp PO 05/27/24 22:06 30 ml ONCE ONE Administration Medical Decision Making Medical Decision Making [facility] Narrative: Patient has atypical chest pain likely anxiety induced/gastric reflux EKG without any ischemic changes 2 sets of cardiac enzymes with no delta change for ischemic heart disease patient has felt much better after Maalox no chest pain at this time Differential Diagnosis Differential Diagnoses: The differential diagnosis associated with the presentation includes ACS/atypical chest pain/esophagitis/anxiety Lab Data [facility] Lab Attestation statement: I reviewed the patient's lab results. 05/27/24 21:10 05/27/24 21:10 Labs: Lab Results 05/27/24 05/27/24 Range/Units 21:10 23:10 WBC 7.4 (4.8-10.8) X10*3/uL RBC 3.62 L (4.60-5.80) X10*6/uL Hgb 10.5 L (14.0-18.0) g/dl Hct 31.1 L (42.0-52.0) % MCV 85.9 (80.0-98.0) fL MCH 29.0 (27.0-33.0) pg MCHC 33.8 (31.0-36.0) g/dl RDW 12.7 (11.0-16.0) % Plt Count 235 (160-400) X10*3/uL MPV 10.3 (9.4-12.4) fL Immature Gran % (Auto) 0.1 (0.0-0.4) % Neut % (Auto) 52.7 (45-73) % Lymph % (Auto) 35.6 (20-40) % Isabela % (Auto) 7.8 (2-11) % Eos % (Auto) 3.1 (0-4) % Baso % (Auto) 0.7 (0-2) % Lymph # (Auto) 2.6 (1.2-4.9) X10*3/uL Isabela # (Auto) 0.6 (0.1-1.2) X10*3/uL Eos # (Auto) 0.2 (0.0-0.4) X10*3/uL Baso # (Auto) 0.1 (0.0-0.2) X10*3/uL Abs Immat Gran (auto) 0.01 (0.00-0.03) X10*3/uL Absolute Neuts (auto) 3.9 (2.0-8.3) x10*3/uL Absolute Nucleated RBC 0.000 (0.0-0.012) X10*3/uL Nucleated RBC % (auto) 0.0 (0.0-0.2) /100WBC Sodium 139 (135-145) mmol/L Potassium 4.4 (3.3-5.1) mmol/L Chloride 110 H (96-108) mmol/L Carbon Dioxide 22 (22-29) mmol/L Anion Gap 11 L (12-20) BUN 32 H (9-16) mg/dL Creatinine 1.22 (0.5-1.4) mg/dL Estim Creat Clear Calc 53.7 Estimated GFR 58 Random Glucose 137 H (60-115) mg/dL Calcium 9.1 (8.4-10.2) mg/dL Total Bilirubin 0.2 (0.0-1.0) mg/dL AST 20 (5-37) U/L ALT 9 (0-40) U/L Alkaline Phosphatase 63 (39-117) U/L Troponin I High Sens 3.8 7.2 D (<3.5-35.0) ng/L B-Natriuretic Peptide 35 (<100) pg/mL Total Protein 7.4 (6.5-8.0) g/dL Albumin 4.0 (3.5-5.0) g/dL Independent Interpretation I performed an independent interpretation of an: EKG Interpretation: Normal sinus rhythm heart rate 86 beats per minute normal interval normal axis no acute STT wave changes no acute ischemia Radiology Impression Discussion of test interpretation with radiology: I have reviewed the radiologist's reading. Radiologist Impression: NAD Discharge Plan Discharge Clinical Impression: Atypical chest pain, GERD with esophagitis Patient Disposition: Home, Self-Care Instructions: Chest Pain (ED), Gastroesophageal Reflux Disease (ED) Additional Instructions: Follow up with your primary care doctor for further evaluation about the chest pain Take medication for acid reflux Likely your chest pain is from acid reflux Prescriptions: New pantoprazole [Protonix] 40 mg tablet,delayed release (DR/EC) 40 mg PO DAILY Qty: 30 0RF sucralfate 1 gram tablet 1 g PO TID Qty: 90 0RF No Action peg 3350-electrolytes [Golytely] 236-22.74-6.74 -5.86 gram recon soln 240 ml PO Q10M Qty: 4000 0RF Rx Instructions: as per split prep instructions, until fecal effluent is clear Trulicity 0.75 mg/0.5 mL pen injector 0.75 mg subcut QWEEK Rx Instructions: takes Wednesday ibuprofen 400 mg tablet 400 mg PO Q6H PRN (Reason: pain) Qty: 20 0RF ferrous sulfate 325 mg (65 mg iron) tablet,delayed release (DR/EC) 325 mg PO QAM tramadol 50 mg tablet 50 mg PO Q8H PRN (Reason: severe pain) clotrimazole 1 % cream 1 appl topical BID insulin glargine [Lantus U-100 Insulin] 100 unit/mL solution 12 unit subcut BID metformin 1,000 mg tablet 1,000 mg PO BID ketoconazole 2 % shampoo 1 appl topical 2XW cyanocobalamin (vitamin B-12) 1,000 mcg tablet 1,000 mcg PO QAM amlodipine 2.5 mg tablet 5 mg PO QAM lisinopril 40 mg tablet 40 mg PO DAILY aspirin 81 mg tablet,delayed release (DR/EC) 81 mg PO DAILY pravastatin 40 mg tablet 40 mg PO BEDTIME (DME) blood pressure test kit-large Kit See Rx Instructions .ROUTE QAM Qty: 1 Rx Instructions: As directed Print Language: Haitian
[2024-05-27 21:16] LABS: MANUAL DIFF FLAG NO
[2024-05-27 21:17] LABS: Basophils Absolute Auto 0.1 X10*3/uL (0.0-0.2); Basophils Percent Auto 0.7 % (0-2); Eosinophils Absolute Auto 0.2 X10*3/uL (0.0-0.4); Eosinophils Percent Auto 3.1 % (0-4); Hematocrit 31.1 % (42.0-52.0); Hemoglobin 10.5 g/dl (14.0-18.0); Imm Gran Abs Auto 0.01 X10*3/uL (0.00-0.03); Imm Gran Pct Auto 0.1 % (0.0-0.4); Lymphocytes Absolute Auto 2.6 X10*3/uL (1.2-4.9); Lymphocytes Percent Auto 35.6 % (20-40); Mean Corpuscular HGB Conc 33.8 g/dl (31.0-36.0); Mean Corpuscular Volume 85.9 fL (80.0-98.0); Mean Platelet Volume 10.3 fL (9.4-12.4); Monocytes Absolute Auto 0.6 X10*3/uL (0.1-1.2); Monocytes Percent Auto 7.8 % (2-11); Neutrophils Absolute Auto 3.9 x10*3/uL (2.0-8.3); Neutrophils Percent Auto 52.7 % (45-73); Platelet Count 235 X10*3/uL (160-400); Red Blood Count 3.62 X10*6/uL (4.60-5.80); Red Cell Distribution Width 12.7 % (11.0-16.0); White Blood Count 7.4 X10*3/uL (4.8-10.8)
--- OUTSIDE RECORDS SUMMARY | 2024-05-27 21:28 | XMS_ITS | Clinical Summary ---
Author Organization [employer] Address [address] [place] [address] Care Team Providers Care Supervisor [employer] Name Role Phone Yvette Saxena MD Primary Care Provide r Pretty Gray PharmD Unavailable [phone] Allergies Active Allergy Reactions Criticality Noted Date Comments Shellfish Allergy 01/07/2024 Medications TRUEplus Lancets 33G misc TEST BLOOD SUGAR TWICE DAILY 100 each 023 Active TRUEplus Insulin Syringe 31G X 516 0.5 ML misc USE ONCE DAILY FOR INSULIN INJECTION 50 each 5 024 Active Alcohol Swabs (Easy Touch Alcohol Prep Medium) 70 % pads USE 1 EVERY DAY 100 each 024 Active omeprazole (PriLOSEC) [address] capsuleIndicati ons:Gastroesoph ageal reflux disease with esophagitis, unspecified whether hemorrhage TAKE 1 CAPSULE BY MOUTH TWICE DAILY BEFORE BREAKFAST AND SUPPER. DO NOT BREAK, CRUSH, DISSOLVE OR CHEW 60 capsule 1 024 Active Blood Pressure kitIndications: Essential hypertension 1 kit Once per day. Use as directed to monitor blood pressure 1 kit Active Continuous Glucose Combustion Engineer (FreeStyle Bogdan 2 [place]) device Scan sensor every 8 hours 1 each Active Continuous Glucose Sensor (FreeStyle Bogdan 2 Sensor) misc Apply 1 sensor every 14 days 2 each Active glucose blood (FreeStyle Precision Matt Test) test strip Use to test blood sugar every 8 hours 100 each 024 2024 Active naloxone (Narcan) 4 mg/0.1 mL nasal sprayIndication s:Arthralgia of both knees Administer 1 spray (4 mg) into affected nostril(s) if needed for opioid reversal. May repeat every 2-3 minutes if needed, alternating nostrils, until medical assistance becomes available. 2 each 3 024 2024 Active Neomycin-Polymy mónica-HC 1 % solutionIndicat ions:Chronic otitis externa of left ear, unspecified type Administer 3 drops into affected ear(s) 4 times daily. 10 mL 024 Active cyanocobalamin (Vitamin B-12) 1000 MCG tabletIndicatio ns:Vitamin B12 deficiency TAKE 1 TABLET BY MOUTH EVERY DAY IN THE MORNING 90 tablet 1 024 Active ferrous sulfate 325 (65 Fe) MG EC tabletIndicatio ns:Anemia, unspecified type TAKE 1 TABLET BY MOUTH EVERY DAY IN THE MORNING 90 tablet 1 024 Active lisinopril 40 MG tablet TAKE 1 TABLET BY MOUTH EVERY DAY AT NOON 90 tablet 1 024 Active Aspirin Low Dose 81 MG EC tablet TAKE 1 TABLET BY MOUTH EVERY MORNING 90 tablet 1 024 Active clotrimazole (Lotrimin) 1 % creamIndication s:Pityriasis rosea APPLY TOPICALLY TO THE AFFECTED AREA(S) TWICE DAILY FOR 28 DAYS 90 g 2 024 Active ketoconazole (NIZOral) 2 % shampooIndicati ons:Pityriasis rosea APPLY TO SCALP AND LEAVE ON FOR 5 MINUTES THEN RINSE OFF TWICE A WEEK 120 mL 2 024 Active meloxicam (Mobic) 15 MG tablet TAKE 1 TABLET BY MOUTH EVERY MORNING 30 tablet 6 024 Active metFORMIN (Glucophage) 1000 MG tabletIndicatio ns:Type 2 diabetes mellitus with diabetic neuropathy, with long-term current use of insulin (CMS/HCC) TAKE 1 TABLET BY MOUTH TWICE DAILY IN THE MORNING AND IN THE EVENING WITH MEALS 180 tablet 3 025 Active atorvastatin (Lipitor) 40 MG tabletIndicatio ns:Type 2 diabetes mellitus with diabetic neuropathy, with long-term current use of insulin (CMS/HCC) Take 1 tablet (40 mg) by mouth Once per day. 30 tablet 11 025 2025 Active pen needle 33G x 4 mm miscIndications :Type 2 diabetes mellitus with diabetic neuropathy, with long-term current use of insulin ([facility]) Use as instructed once daily 100 each 6 025 2025 Active glucose blood (FREESTYLE LITE) test stripIndication s:Type 2 diabetes mellitus with diabetic neuropathy, with long-term current use of insulin ([facility]) Test blood sugar twice daily 100 strip 11 Active insulin glargine (Toujeo SoloStar) 300 UNIT/ML injectionIndica tions:Type 2 diabetes mellitus with diabetic neuropathy, with long-term current use of insulin ([facility]) Inject 10 units subcutaneously once daily 4.5 mL 3 Active glucose (Glutose) 40 % gel oral gelIndications: Type 2 diabetes mellitus with diabetic neuropathy, with long-term current use of insulin ([facility]) Use as needed for low blood sugar 45 g 11 Active amLODIPine (Norvasc) 10 MG tabletIndicatio ns:Essential hypertension Take 1 tablet (10 mg) by mouth Once per day. 90 tablet 025 Active melatonin 5 MG tabletIndicatio ns:Other insomnia TAKE 1 TABLET BY MOUTH AT BEDTIME 90 tablet 025 Active acetaminophen (Tylenol 8 Hour) 650 MG ER tabletIndicatio ns:Arthralgia of both knees TAKE 2 TABLETS BY MOUTH EVERY 8 HOURS NEEDED FOR MILD PAIN 60 tablet 2 025 Active traMADol (Ultram) 50 MG tabletIndicatio ns:Arthralgia of both knees Take 1 tablet (50 mg) by mouth every 8 (eight) hours if needed for severe pain for up to 28 days. Do not start before May 11, 2024. 84 tablet 025 2024 Active lidocaine (Lidoderm) 5 % patchIndication s:Arthralgia of both knees APPLY 1 PATCH TOPICALLY TO THE SKIN, LEAVE ON FOR 12 HOURS AND OFF FOR 12 HOURS DIRECTED 30 patch 2 Active ammonium lactate (Lac-Hydrin) 12 % lotionIndicatio ns:Dry skin dermatitis APPLY TO THE AFFECTED AREA(S) TOPICALLY NEEDED FOR DRY SKIN 225 g 2 025 Active Trulicity 0.75 MG/0.5ML solution auto-injector INJECT ONE PEN (=0.75MG) SUBCUTANEOUSLY ONCE A WEEK DIRECTED 025 Active dulaglutide (Trulicity) 0.75 MG/0.5ML solution pen-injectorInd ications:Type 2 diabetes mellitus with diabetic neuropathy, with long-term current use of insulin ([facility]) Inject 0.75 mg under the skin 1 (one) time per week. 4 each 11 024 2024 Discontinued(T herapy completed) lidocaine (Lidoderm) 5 % patchIndication s:Arthralgia of both knees Apply 1 patch topically Once per day. Remove & discard patch within 12 hours or as directed by MD. 30 patch 2 024 2024 Discontinued(R eorder (will not trigger notification to Pharmacy)) ammonium lactate (Lac-Hydrin) 12 % lotionIndicatio ns:Dry skin dermatitis Apply topically if needed for dry skin. 225 g 2 024 2024 Discontinued(R eorder (will not trigger notification to Pharmacy)) traMADol (Ultram) 50 MG tabletIndicatio ns:Arthralgia of both knees TAKE 1 TABLET BY MOUTH EVERY 8 HOURS NEEDED FOR SEVERE PAIN FOR UP TO 28 DAYS 84 tablet 025 2024 Discontinued(R eorder (will not trigger notification to Pharmacy)) Active Problems Problem Noted Date Diagnosed Date termite control technician (current) use of opiate analgesic 04/22 Other insomnia 01/07/2024 Assessment & Plan (01/11/2024 10:38 AM EST): Sleep hygiene counseling done I will start patient on melatonin Dry skin dermatitis 01/07/2024 Cataract 10/07/2023 Clogged ear, right 10/07/2023 Chronic otitis externa of left ear 10/07/2023 Gastroesophageal reflux disease with esophagitis 03/12/2023 Iron (Fe) deficiency anemia 03/12/2023 Assessment & Plan (03/12/2023 3:16 PM EST): Patient did not like his experience on previus GI office I will refer him to another office for colonoscopy and EGD Upper abdominal pain 08/19/2022 Assessment & Plan (08/19/2022 11:24 AM EDT): Do not miss appointment with GI on 08/26/22 he will be possibly schedule for EGD and colonoscopy ( iron deficiency anemia, upper abdominal pain and diarrhea) Hypoglycemia 06/29/2022 Assessment & Plan (06/29/2022 1:24 PM EDT): Discussed with pt regarding importance of prevention of hypglycemia with small in fraction meals move qhs dose of lantus to use it with meawls instead. prescription for glucose gel to use PRN symptoms. FU with PCP. Health care maintenance 05/28/2022 Assessment & Plan (05/28/2022 12:26 PM EDT): Blood work ordered Referral to eye care Pneumovax today Arthralgia of both knees 05/28/2022 Assessment & Plan (05/28/2022 12:27 PM EDT): Patient reports increase chronic pain for the past years he is taking tramadol and acetaminophen but feels its not enough I increase tramadol today to 50mg 3 times a day as needed, counseling about narcotics side effects was done today Skin lesion 02/17/2022 Generalized joint pain 02/17/2022 Chronic midline low back pain without sciatica 1 04/20/2021 Nephrolithiasis 02/17/2022 Erectile dysfunction 03/03/2013 Peripheral neuropathy 08/26/2011 Depressive disorder 08/26/2011 Carpal tunnel syndrome 08/26/2011 Essential hypertension 02/22/2003 Assessment & Plan (01/11/2024 10:39 AM EST): I advised - Aerobic exercise to reduce BP. Initial goal of 30 min walk 3-5x/week. Increase as tolerated. - low-sodium diet (goal: <2g/day) and heart healthy diet such as DASH to reduce BP and prevent ASCVD. - Home BP monitoring 1-2 x day with goal of <140/90. - Seek immediate medical attention for chest pain, palpitations, SOB, syncope, or sudden changes in mental status. - Do not change or discontinue current prescriptions without first consulting health care provider Assessment & Plan (10/07/2023 4:20 PM EDT): Today elevated, patient with both pain and upset possibly may trigger his blood pressure I advise: - Aerobic exercise to reduce BP. Initial goal of 30 min walk 3-5x/week. Increase as tolerated. - low-sodium diet (goal: <2g/day) and heart healthy diet such as DASH to reduce BP and prevent ASCVD. - Home BP monitoring 1-2 x day with goal of <140/90. - Seek immediate medical attention for chest pain, palpitations, SOB, syncope, or sudden changes in mental status. - Do not change or discontinue current prescriptions without first consulting health care provider Bring BP log for next appointment Assessment & Plan (03/12/2023 3:15 PM EST): Uncontrolled I will refer patient to chronic condition management - Aerobic exercise to reduce BP. Initial goal of 30 min walk 3-5x/week. Increase as tolerated. - low-sodium diet (goal: <2g/day) and heart healthy diet such as DASH to reduce BP and prevent ASCVD. - Home BP monitoring 1-2 x day with goal of <140/90. - Seek immediate medical attention for chest pain, palpitations, SOB, syncope, or sudden changes in mental status. - Do not change or discontinue current prescriptions without first consulting health care provider Assessment & Plan (11/18/2022 2:06 PM EDT): Patient reports blood pressure is always control at home and sometimes even low I advise low Na diet and to log BP for 2 weeks RTC to nurse visit if BP ot at gal plan is to increase amlodipine to 10mg Assessment & Plan (08/19/2022 11:25 AM EDT): - Aerobic exercise to reduce BP. Initial goal of 30 min walk 3-5x/week. Increase as tolerated. - low-sodium diet (goal: <2g/day) and heart healthy diet such as DASH to reduce BP and prevent ASCVD. - Home BP monitoring 1-2 x day with goal of <140/90. - Seek immediate medical attention for chest pain, palpitations, SOB, syncope, or sudden changes in mental status. - Do not change or discontinue current prescriptions without first consulting health care provider Assessment & Plan (05/28/2022 12:25 PM EDT): Maintenance: BMP: ordered today Lipid Panel: ordered today ASCVD Risk: Calculate pending updated labs - Aerobic exercise to reduce BP. Initial goal of 30 min walk 3-5x/week. Increase as tolerated. - low-sodium diet (goal: <2g/day) and heart healthy diet such as DASH to reduce BP and prevent ASCVD. - Home BP monitoring 1-2 x day with goal of <140/90. - Seek immediate medical attention for chest pain, palpitations, SOB, syncope, or sudden changes in mental status. -Today BP was high he reports he is not taking hydrochlorothiazide, he reports he does not feel well when he takes it I switch it today to amlodipine 2.5mg, continue with lisinopril 40mg daily RTC with nurse in 2 weeks then with me in 3 months Type 2 diabetes mellitus wit h diabetic neuropathy, with long-term current use of insulin 02/22/2003 Assessment & Plan (01/11/2024 10:39 AM EST): Diabetes is: controlled - Lab Results Component Value Date HGBA1C 6.3 (A) 12/24/2023 HGBA1C 6.1 (A) 10/07/2023 HGBA1C 6.6 (A) 03/12/2023 - Lab Results Component Value Date MICROALBUR 30.0 01/04/2024 CREATININE 0.85 12/24/2023 -Changes: none - Diabetic eye exam:up to date - Diabetic foot exam:pending - Continue lifestyle modifications - Continue current medications - Follow up: 3 months Assessment & Plan (10/07/2023 4:19 PM EDT): Diabetes is: controlled - Lab Results Component Value Date HGBA1C 6.1 (A) 10/07/2023 HGBA1C 6.6 (A) 03/12/2023 HGBA1C 10.2 (A) 11/18/2022 - Lab Results Component Value Date MICROALBUR 3.7 06/17/2020 CREATININE 0.99 06/09/2022 -Changes: none - Diabetic eye exam:up to date - Diabetic foot exam:pending - Continue lifestyle modifications - Continue current medications - Follow up: 3 months Assessment & Plan (03/12/2023 3:14 PM EST): Patient congratulated for the good work - Lab Results Component Value Date HGBA1C 6.6 (A) 03/12/2023 HGBA1C 10.2 (A) 11/18/2022 HGBA1C 6.7 (A) 08/19/2022 - Lab Results Component Value Date MICROALBUR 3.7 06/17/2020 CREATININE 0.99 06/09/2022 - Diabetic eye exam:up to date - Diabetic foot exam:pending - Continue lifestyle modifications - Continue current medications Assessment & Plan (11/27/2022 4:31 PM EDT): - Lab Results Component Value Date HGBA1C 10.2 (A) 11/18/2022 HGBA1C 6.7 (A) 08/19/2022 HGBA1C 7.0 (A) 06/29/2022 - Lab Results Component Value Date MICROALBUR 3.7 06/17/2020 CREATININE 0.99 06/09/2022 - Continue lifestyle modifications - I increase lantus to 17 U in the morning c/w 10U at bed time, c/w metformin 1000mg BID, I started trulicity 0.75mg weekly -Patient is insulin dependent with and A1c of 10.2 it is my medical opinion he will benefit form continuous glucose monitor, it will give me more information for me to adjust his medications including his insulin Assessment & Plan (08/19/2022 11:23 AM EDT): better no more hypoglycemia events, continue with current interventions Assessment & Plan (06/29/2022 1:03 PM EDT): Controlled. A1C is at goal, noticed a few episodes of hyperglycemia above 200s on glucometer. I advised pt to have smaller meal portions and keep RBS betwen 100- 180. Increase water intake, exericse. Continue lantus 14 units and 8 with the evening meal instead no change in other medications and FU with PCP Assessment & Plan (05/28/2022 12:23 PM EDT): - Lab Results Component Value Date HGBA1C 6.9 (A) 04/24/2022 HGBA1C 7.4 (A) 03/03/2022 HGBA1C 8.6 (H) 06/17/2020 - Lab Results Component Value Date MICROALBUR 3.7 06/17/2020 CREATININE 1.08 03/19/2022 - Diabetic eye exam: to be address on next appt - Diabetic foot exam: to be address on next appt - Continue lifestyle modifications Patient has notice low glucose in the middle of the night and trauma therapist I instructed to go down on his lantus at nigh from 14U to 12U and not to skip any meal, continue with rest of medication regimen Hyperlipidemia 02/23/2000 Resolved Problems Problem Noted Date Diagnosed Date Resolved Date Otitis externa 02/17/2022 04/24/2022 Encounters Date Type Department Care Team Description 05/18/2024 Orders Only [facility] [address] [place] [phone] Yvette Saxena MD 05/17/2024 Telephone [facility] [address] [place] [phone] Yvette Saxena MD 05/11/2024 Refill [facility] [address] [place] [address] Yvette Saxena MD Arthralgia of both knees; Dry skin dermatitis 05/09/2024 Refill [facility] [address] [place] [address] Yvette Saxena MD Arthralgia of both knees 05/05/2024 9:00 AM EDT Telemedicine [facility] [address] [place] [phone] Tatyana Mann RN Chronic midline low back pain without sciatica (Primary Dx); 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 05/05/[address] [address] Tatyana Mann, PAM Tramadol count discrep, CLINICAL NURSE REVIEWER forms 05/05/2024 Travel 05/03/2024 9:30 AM EDT Office Visit [facility] [address] [place] [address] Yesy Smith, OD 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 (CMS/HCC) (Primary Dx); Mild nonproliferative diabetic retinopathy of right eye without macular edema associated with type 2 diabetes mellitus (CMS/HCC); Anatomical narrow angle of both eyes; Combined forms of age-related cataract of both eyes; Presbyopia of both eyes 05/03/2024 Travel 04/21/2024 Refill [facility] [address] [place] [address] Yvette Saxena MD Arthralgia of both knees 04/17/2024 Telephone [facility] [address] [place] [phone] Yvette Saxena MD 04/14/2024 Telephone [facility] [address] [place] [phone] Yvette Saxena MD No Show 04/11/2024 Refill [facility] [address] [place] [address] Patricia Hickman MD Arthralgia of both knees 04/11/2024 Refill [facility] [address] [place] [address] Yvette Saxena MD Other insomnia 04/07/2024 Telephone [facility] [address] [place] [phone] Yvette Saxena MD Chart Prep 03/30/2024 Patient Outreach [facility] [address] [place] [phone] Yvette Saxena MD Pre-visit Planning (SDOH screening negative and tobacco screening negative) 03/21/2024 Refill [facility] [address] [place], [place] [phone] Yvette Saxena MD Essential hypertension 03/17/2024 Refill [facility] [address] [place] [address] Pretty Gray PharmD Type 2 diabetes mellitus with diabetic neuropathy, with long-term current use of insulin ([facility]); Essential hypertension 03/14/2024 Refill [facility] [address] [place] [address] Yvette Saxena MD Arthralgia of both knees 03/07/2024 Telephone [facility] [address] [place] [address] Lyubov Saleh [place] Durable Medical Equipment from Last 3 Months Immunizations Name Administration Dates Next Due Influenza injectable quadriv alent IIV4 with preservative 12/08/2018,02/02/2017,01/28/2016 Influenza injectable quadriv alent preservative free 03/12/2023,04/24/2022,01/10/2021,04/19 Influenza, High Dose Seasona l, Preservative Free 12/24/2023 Influenza, IIV3, injectable 03/09/2014, 0 Influenza, Split (incl. ady fied surface antigen) 10/25/2012,03/07/2012 Moderna Covid-19 Vaccine 12+ 01/10/2021,07/04/19 21,06/05/2020 Moderna Covid-19 Vaccine 6+ Bivalent 04/24/2022 Pfizer Covid-19 Vaccine 12+ 12/24/2023, 4 Pneumococcal Conjugate PCV 20 05/28/2022 Pneumococcal Polysaccharide PPSV23 07/16/2003 RSV Bivalent 07/07/2023 TD (adult), 2 Lf tetanus tox oid, preservative free, adsorbed 01/01/2006 Tdap 08/19/2022,03/07/2012 Zoster, Recombinant 07/07/2023 Zoster, live 03/09/2014 Social History Tobacco Use Types Packs/Day Years Used Date Smoking Tobacco: Former Cigarettes Passive Smoke Exposure: Past Smokeless Tobacco: Never Tobacco Cessation:Counseling Given: Not Answered Alcohol Use Standard Drinks/Week Comments Not Currently 0 (1 standard drink = 0.6 oz pur e alcohol) Alcohol Answer Date Recorded Frequency of Alcohol Consumption Not on file 10/07/2023 Average Number of Drinks Not on file 024 Frequency of Binge Drinking Not on file 09/22 Score 0 10/07/2023 Depression Answer Date Recorded Patient Health Questionnaire-9 Score 8 10/07/2023 Patient Health Questionnaire-9 Score 8 10/07/2023 Last PHQ-9: Questionnaire Data Not on file 0 10/07/2023 Housing Stability Answer Date Recorded What is your housing situation today? I have ludivina gaitan 10/07/[address] you li ve. Do you have problems with any of the following? None of the above 10/07/2023 Food Insecurity Answer Date Recorded Within the past 12 months, y ou worried that your food would run out before you got money to buy more: Never True 10/07/2023 Within the past 12 months,th e food you bought just didn't last and you didn't have enough money to get more: Never True Transportation Answer Date Recorded In the past 12 months, has l ack of transportation kept you from medical appts, meetings, work or from getting things needed for daily living? No 10/07/2023 Utilities Answer Date Recorded In the past 12 months, has t he electric, gas, oil or water company threatened to shut off services in your home? No 10/07/2023 Depression Answer Date Recorded Patient Health Questionnaire-2 Score 4 10/07/2023 Internet Access Answer Date Recorded Internet Access Q1 Yes 03/30/2024 Internet Access Q2 I do not want or need it 07/2024 Sex and Gender Information Value Date Recorded Sex Assigned at Male 12/22/2021 10:17 AM EDT Legal Sex Male 10:17 AM EDT Gender Identity Choose not to disclose 10:17 AM EDT Sexual Orientation Choose not to disclose 2021 10:17 AM EDT Last Filed Vital Signs Vital Sign Reading Time Taken Comments Blood Pressure 127/65 01/07/2024 1:40 PM EST Pulse 84 01/07/2024 1:40 PM EST Temperature 36.7 ??C (98 ??F) 01/07/2024 1:40 PM EST Respiratory Rate 16 01/07/2024 1:40 PM EST Oxygen Saturation 98% 01/07/2024 1:40 PM EST Inhaled Oxygen Concentration - - Weight 79.8 kg (176 lb) 01/07/2024 1:40 PM EST Height 170.2 cm (5' 7 ) 01/07/2024 1:40 PM EST Body Mass Index 27.57 01/07/2024 1:40 PM EST Plan of Treatment Upcoming Encounters Date Type Department Care Team (Late st Contact Info) Description 06/30/2024 11:30 AM EDT Office Visit [facility] [address] [place] [phone] [place] MD [address] [place] [address] 07/21/2024 9:30 AM EDT Telemedicine [facility] [address] [place] [address] Tatyana Mann RN 11/03/2024 10:00 AM EDT Office Visit [facility] [address] [place] [address] Yesy Smith, OD [address] [place] [address] Health Maintenance Due Date Last Done Comments CT Colonography 1948 FIT DNA/Cologuard 1948 FIT 1948 FOBT 1948 Sigmoidoscopy 1948 Diabetes: Foot Exam 1958 Zoster Vaccines (3 of 3) 09/01/2023 07/07/2023, 02/22 Diabetes: Hemoglobin A1C 06/22/2024 024, 10/07/2023, 03/12/2023, Additional history exists Alcohol/Substance Use Screening 10/06/2024 10/07/2023 Depression Screening 10/06/2024 10/07/2023, 10/07/19 24 Lipid Panel 12/23/2024 12/24/2023, 05/23, 06/17/2020 Diabetes: Urine Protein Screening 01/03/2025 01/04/2024, 06/09/2022, 06/17/2020 SDOH Screening 03/30/2025 03/30/2024 Eye Exam 05/03/2025 05/03/2024, 04/22, 05/03/2024, Additional history exists Tobacco Screening 05/17/2025 05/17/2024 Colonoscopy 05/26/2027 05/25/2017 Colorectal Cancer Screening 05/26/2027 DTaP/Tdap/Td Vaccines (3 - Td or Tdap) 08/19/2032 08/19/2022, 03/07/2012, 01/01/2006 Pneumococcal Vaccine: 50+ Years Completed 05/28/2022, 07/16/2003 Hepatitis C Screening Completed 08/26/2022 RSV Patients and Patients Aged 60 years or older Completed 07/07/2023 COVID-19 Vaccine Completed 12/24/2023, , 04/24/2022, Additional history exists Influenza Vaccine Completed 12/24/2023, , 04/24/2022, Additional history exists HIB Vaccines Aged Out No longer eligi ble based on patient's age to complete this topic HPV Vaccines Aged Out No longer eligi ble based on patient's age to complete this topic Hepatitis A Vaccines Aged Out No long er eligible based on patient's age to complete this topic Hepatitis B Vaccines Aged Out No long er eligible based on patient's age to complete this topic IPV Vaccines Aged Out No longer eligi ble based on patient's age to complete this topic Meningococcal Vaccine Aged Out No alesia da eligible based on patient's age to complete this topic RSV under 20 months Aged Out No longe r eligible based on patient's age to complete this topic Rotavirus Vaccines Aged Out No longer eligible based on patient's age to complete this topic Goals Goal Patient Goal Type Associated Problems Recent Progress Patient-Stated? 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 (CMS/HCC) ALBUMIN, RANDOM URINE W/CREATININE Routine 01/04/2024 9:15 AM EST Type 2 diabetes mellitus with diabetic neuropathy, with long-term current use of insulin ([facility]) LIPID PANEL, STANDARD Routine 12/24/2023 2:30 PM EDT POCT GLYCATED HEMOGLOBIN, TOTAL Routine 12/24/2023 1:17 PM EDT Type 2 diabetes mellitus with diabetic neuropathy, with long-term current use of insulin ([facility]) HEPATITIS C ANTIBODY Routine 08/26/2022 2:49 PM EDT HM COLONOSCOPY Routine 05/25/2017 from Last 3 Months or Most Recently Relevant to Health Maintenance Results * (ABNORMAL) Albumin, Random Urine W/Creatinine (01/04/2024 9:15 AM EST) Creatinine, Urine 38.76 mg/dL [facility] Microalbumin Urine 30.0 mg/L H [facility] Microalbum Creatinine Ratio Ur 77.3(H) <30 ug/mg cr [facility] Comment:Albumin/Creatinine R atio Reference Ranges: Normal: < 30 ug/mg creatinine Microalbuminuria: 30 - 300 ug/mg creatinineClinical Albuminuria: > 300 ug/mg creatinine Urine (Urine, Random) 01/04/2024 9:15 AM EST 01/04/2024 11:27 AM EST us Yvette Arizmendi MD LAB URINE ORDERABLES Final Result [facility] [address] [place] [phone] * (ABNORMAL) Lipid Panel, Standard (12/24/2023 2:30 PM EDT) Triglycerides 93 <150 mg/dL [facility] Comment:Desirable Triglyceri de: less than 150 mg/dLBorderline High Triglyceride 150-199 mg/dLHigh Triglyceride: 200-499 mg/dLVery High Triglyceride: greater than or equal to 5OO mg/dL Cholesterol 154 <200 mg/dL [facility] Comment:Desirable Cholestero l: less than 200 mg/dLBorderline High Cholesterol: 200-239 mg/dLHigh Cholesterol: greater than 239 mg/dL LDL Cholesterol Calculated 98 <100 mg/dL [facility] Comment:Desirable LDL: less than 100 mg/dLNear Optimal/Above Optimal LDL: 110- 129 mg/dLBorderline High LDL: 130-159 mg/dLHigh LDL: 160-189 mg/dLVery High LDL: greater than or equal to 190 mg/dL HDL Cholesterol 38(L) >40 mg/dL [facility] Comment:Desirable HDL: great er than 40 mg/dL Note: This HDL assay may give artificially low results in patients with liver disease. 12/24/2023 2:30 PM EDT 12/24/2023 4:32 PM EDT us Yvette Arizmendi MD LAB BLOOD ORDERABLES Final Result [facility] [address] [place] [address] [phone] * (ABNORMAL) POCT HGB A1C (12/24/2023 1:17 PM EDT) Hemoglobin A1C 6.3(A) 4.0 - 6.0 % QC Media Lot # [id number] Lot# Expiration Date Blood 12/24/2023 1:17 PM EDT Yvette Arizmendi MD POINT OF CARE TEST EN TER/EDIT ORDERABLES Final Result * Hepatitis C Ab (08/26/2022 2:49 PM EDT) Hepatitis C Antibody Nonreactive Nonreactive [facility] Comment:Antibodies to HCV no t detected; does not exclude early acuteHCV infection. 08/26/2022 2:49 PM EDT 08/26/2022 2:49 PM EDT [facility] External Provider LAB BLO OD ORDERABLES Final Result [facility] [address] [place] [address] [phone] * Hm Colonoscopy (05/25/2017) Colonoscopy Normal Colonoscopy repeat in 10 years Historical Provider HEALTH MAINTENANCE Final Result from Last 3 Months or Most Recently Relevant to Health Maintenance Insurance [facility] STANDARD Care Teams Supervisor Metal Furniture Fabrication Relationship Specialty Start Date End Date Yvette Saxena MD [address] [place] [address] PCP - General Internal Medicine 04/24/22 Pretty Gray, GilmaD [address] [place] [address] Pharmacist Internal Medicine 06/23/23
--- OUTSIDE RECORDS SUMMARY | 2024-05-27 21:28 | XMS_ITS | Encounter Summary ---
Author Organization [employer] Address [address] [facility] 7t [place] [address] Care Team Providers Care Tool/Die Maker Name Role Phone Yvette Saxena MD Primary Care Provide r Pretty Gray PharmD Unavailable [phone]- [phone] Reason for Visit * Reason Onset Date Comments Med Refill 07/29/2022 Encounter Details Date Type Department Care Team (Late st Contact Info) Description 07/29/2022 Telephone [facility] MEDICINE [address] [place], [place] [phone] Yvette Saxena MD [address] [place], [place] [phone] Med Refill Social History Tobacco Use Types Packs/Day Years Used Date Smoking Tobacco: Former Cigarettes Passive Smoke Exposure: Current Smokeless Tobacco: Never Alcohol Use Standard Drinks/Week Comments Not Currently 0 (1 standard drink = 0.6 oz pur e alcohol) Depression Answer Date Recorded Patient Health Questionnaire-9 Score 0 04/24/2022 Depression Answer Date Recorded Patient Health Questionnaire-2 Score 0 04/24/2022 Sex and Gender Information Value Date Recorded Sex Assigned at Male 12/22/2021 10:17 AM EDT Legal Sex Male 10:17 AM EDT Gender Identity Choose not to disclose 10:17 AM EDT Sexual Orientation Choose not to disclose 2021 10:17 AM EDT COVID-19 Exposure Response Date Recorded In the last 10 days, have yo u been in contact with someone who was confirmed or suspected to have Coronavirus/COVID-19? No / Unsure 07/21/2022 1:06 PM EDT documented as of this encounter Miscellaneous Notes * Telephone Encounter - Missy Sneed RN - 07/31/2022 2:41 PM EDT Pended and sent again to pcp. * Telephone Encounter - Fuad Guzman - 07/31/2022 2:04 PM EDT Tc from pt requesting status on tramadol med * Telephone Encounter - Rosetta Ham - 07/29/2022 9:42 AM EDT Tc from patient requesting a med refill on medication tramadol [address] Joshi documented in this encounter Plan of Treatment Upcoming Encounters Date Type Department Care Team (Late st Contact Info) Description 06/30/2024 11:30 AM EDT Office Visit [facility] MEDICINE [address] [place] [address] Hoa Beach MD [address] [place] [address] 07/21/2024 9:30 AM EDT Telemedicine [facility] [address] [place] [address] Tatyana Mann RN 11/03/2024 10:00 AM EDT Office Visit [facility] OPTOMETRY [address] [place] [address] Yesy Smith, KIM [address] [place] [address] documented as of this encounter Visit Diagnoses Not on filedocumented in this encounter Additional Health Concerns Assessment Noted Time PHQ-9 Depression Total Score: 0 04/25/19 23 11:43 AM EST documented as of this encounter Care Teams Tool/Die Maker Relationship Specialty Start Date End Date Yvette Saxena MD [address] [place] [address] PCP - General Internal Medicine 04/24/22 Pretty Gray, GilmaD [address] [place] [address] Pharmacist Internal Medicine 06/23/23 documented as of this encounter
--- OUTSIDE RECORDS SUMMARY | 2024-05-27 21:28 | XMS_ITS | Encounter Summary ---
Author Organization [employer] Address 75 [facility] 7t [place] [address] Care Team Providers Care Coating Supervisor Name Role Phone Yvette Saxena MD Primary Care Provide r Pretty Gray PharmD Unavailable [phone]- [phone] Reason for Visit * Reason Comments Med Refill Encounter Details Date Type Department Care Team (Late st Contact Info) Description 11/18/2022 Refill [facility] [address] [place] [address] Sharee Crowe DO [address] [place] [address] Type 2 diabetes mellitus with diabetic neuropathy, with long-term current use of insulin ([facility]) Social History Tobacco Use Types Packs/Day Years [...] not to disclose 2021 10:17 AM EDT documented as of this encounter Plan of Treatment Upcoming Encounters Date Type Department Care Team (Late Contact Info) Description 06/30/2024 11:30 AM EDT Office Visit [facility] MEDICINE [address] [place] [address] Hoa Beach MD [address] [place] [address] 07/21/2024 9:30 AM EDT Telemedicine [facility] [address] [place] [address] Tatyana Mann RN 11/03/2024 10:00 AM EDT Office Visit [facility] OPTOMETRY [address] [place] [address] Yesy Smith, OD [address] [place] [address] documented as of this encounter Visit Diagnoses Diagnosis Type 2 diabetes mellitus with diabetic neuropathy, with long-term current use of insulin ([facility]) documented in this encounter Additional Health Concerns Assessment Noted Time PHQ-9 Depression Total Score: 0 04/25/19 23 11:43 AM EST documented as of this encounter Care Teams Coating Supervisor Relationship Specialty Start Date End Date Yvette Saxena MD [address] [place] [address] [phone] PCP - General Internal Medicine 04/24/22 Pretty Gray, GilmaD [address] [place] [address] [phone] Pharmacist Internal Medicine 06/23/23 documented as of this encounter
--- OUTSIDE RECORDS SUMMARY | 2024-05-27 21:28 | XMS_ITS | Encounter Summary ---
Author Organization [employer] Address [address] [facility] 7t [place] [address] Care Team Providers Care Air Pollution Engineer Name Role Phone Yvette Saxena MD Primary Care Provide r Pretty Gray PharmD Unavailable [phone]- [phone] Encounter Details Date Type Department Care Team ([facility] Contact Info) Description 03/30/2022 Abstract [facility] MEDICINE [address] [place] [address] Johnathan Sánchez MD [address] [place] [address] Social History Tobacco Use Types Packs/Day Years Used Date Smoking Tobacco: Never Passive Smoke Exposure: Never Smokeless Tobacco: Never Alcohol Use Standard Drinks/Week Comments Not Currently 0 (1 standard drink = 0.6 oz pur e alcohol) Sex and Gender Information Value Date Recorded [...] suspected to have Coronavirus/COVID-19? No / Unsure 03/20/2022 1:36 PM EST documented as of this encounter Plan of Treatment Upcoming Encounters Date Type Department Care Team ([facility] Contact Info) Description 06/30/2024 11:30 AM EDT Office Visit [facility] MEDICINE [address] [place] [address] Hoa Beach MD [address] [place] [address] 07/21/2024 9:30 AM EDT Telemedicine [facility] MEDICINE [address] [place] [address] Tatyana Mann, RN 11/03/2024 10:00 AM EDT Office Visit [facility] OPTOMETRY [address] [place] [address] Yesy Smith, OD [address] [place] [address] documented as of this encounter Procedures Procedure Name Priority Date/Time Associated Diagnosis Comments COLONOSCOPY Routine 05/25/2017 documented in this encounter Results * Colonoscopy (05/25/2017) Colonoscopy Normal Colonoscopy repeat in 10 years Historical Provider HEALTH MAINTENANCE Final Result documented in this encounter Visit Diagnoses Not on filedocumented in this encounter Care Teams Air Pollution Engineer Relationship Specialty Start Date End Date Yvette Saxena MD [address] [place] [address] PCP - General Internal Medicine 04/24/22 Pretty Gray PharmD [address] [place] [address] Pharmacist Internal Medicine 06/23/23 documented as of this encounter
--- OUTSIDE RECORDS SUMMARY | 2024-05-27 21:28 | XMS_ITS | Encounter Summary ---
Author Organization [employer] Address [address] [facility] 7t [place] [address] Care Team Providers Care Senior Hardware Design Engineer Name Role Phone Yvette Saxena MD Primary Care Provide r Pretty Gray PharmD Unavailable [phone]- [phone] Reason for Visit * Reason Comments Med Refill Encounter Details Date Type Department Care Team (Late st Contact Info) Description 05/21/2022 Refill [facility] MED & PEDS [address] [place] [address] Johnathan Sánchez MD [address] [place] [address] Social History Tobacco Use Types Packs/Day Years [...] suspected to have Coronavirus/COVID-19? No / Unsure 04/24/2022 10:48 AM EST documented as of this encounter Plan of Treatment Upcoming Encounters Date Type Department Care Team (Late st Contact Info) Description 06/30/2024 11:30 AM EDT Office Visit [facility] MEDICINE [address] [place] [address] Hoa Beach MD [address] [place] [address] 07/21/2024 9:30 AM EDT Telemedicine [facility] MEDICINE [address] [place] [address] Tatyana Mann, PAM 11/03/2024 10:00 AM EDT Office Visit [facility] OPTOMETRY [address] [place] [address] Yesy Smith, OD [address] [place] [address] documented as of this encounter Visit Diagnoses Not on filedocumented in this encounter Additional Health Concerns Assessment Noted Time PHQ-9 Depression Total Score: 0 04/25/19 23 11:43 AM EST documented as of this encounter Care Teams Senior Hardware Design Engineer Relationship Specialty Start Date End Date Yvette Saxena MD [address] [place] [address] PCP - General Internal Medicine 04/24/22 Pretty Gray PharmD [address] [place] [phone] Pharmacist Internal Medicine 06/23/23 documented as of this encounter
--- OUTSIDE RECORDS SUMMARY | 2024-05-27 21:28 | XMS_ITS | Encounter Summary ---
Author Organization [employer] Address 75 [facility] 7t [place] [address] Care Team Providers Care Personal Financial Advisor Name Role Phone Yvette Saxena MD Primary Care Provide r Pretty Gray PharmD Unavailable [phone]- [phone] Reason for Visit * Reason Comments Med Refill Encounter Details Date Type Department Care Team (Late st Contact Info) Description 09/26/2022 Refill [facility] MED & PEDS [address] [place] [address] Johnathan Sánchez MD [address] [place] [address] Social History Tobacco Use Types Packs/Day Years [...] suspected to have Coronavirus/COVID-19? No / Unsure 09/01/2022 1:07 PM EDT documented as of this encounter Plan of Treatment Upcoming Encounters Date Type Department Care Team (Late st Contact Info) Description 06/30/2024 11:30 AM EDT Office Visit [facility] MEDICINE [address] [place] [address] Hoa Beach MD [address] [place] [address] 07/21/2024 9:30 AM EDT Telemedicine [facility] MEDICINE [address] [place] [address] Tatyana Mann, PAM 11/03/2024 10:00 AM EDT Office Visit [facility] OPTOMETRY [address] [place] [address] Yesy Smith, OD [address] [place] [address] documented as of this encounter Visit Diagnoses Not on filedocumented in this encounter Additional Health Concerns Assessment Noted Time PHQ-9 Depression Total Score: 0 04/25/19 23 11:43 AM EST documented as of this encounter Care Teams Personal Financial Advisor Relationship Specialty Start Date End Date Yvette Saxena MD [address] [place] [phone] PCP - General Internal Medicine 04/24/22 Pretty Gray PharmD [address] [place] [phone] Pharmacist Internal Medicine 06/23/23 documented as of this encounter
--- OUTSIDE RECORDS SUMMARY | 2024-05-27 21:28 | XMS_ITS | Encounter Summary ---
Author Organization [employer] Address [address] [facility] 7t [place] [address] Care Team Providers Care Field Nurse Name Role Phone Yvette Saxena MD Primary Care Provide r Pretty Gray PharmD Unavailable [phone]- [phone] Reason for Visit * Reason Onset Date Comments Durable Medical Equipment 02/14/2024 Encounter Details Date Type Department Care Team (Late st Contact Info) Description 02/14/2024 Telephone [facility] MEDICINE [address] [place] [address] Yvette Saxena MD [address] [place], [place] [phone] Durable Medical Equipment Social History Tobacco Use Types Packs/Day Years Used Date Smoking Tobacco: Former Cigarettes Passive Smoke Exposure: Past Smokeless Tobacco: Never Alcohol Use Standard Drinks/Week [...] Access Answer Date Recorded Internet Access Q1 No 10/25/2023 Internet Access Q2 I do not want or need it 03/2023 Sex and Gender Information Value Date Recorded Sex Assigned at Male 12/22/2021 10:17 AM EDT Legal Sex Male 10:17 AM EDT Gender Identity Choose not to disclose 10:17 AM EDT Sexual Orientation Choose not to disclose 2021 10:17 AM EDT documented as of this encounter Miscellaneous Notes * Telephone Encounter - Raymon Toledo - 02/14/2024 11:16 AM EST Tc from daughter requesting for pt a rollater walker as he can't get around the house and wont be able to stand for too long due to his pain in legs. documented in this encounter Plan of Treatment Upcoming Encounters Date Type Department Care Team (Late st Contact Info) Description 06/30/2024 11:30 AM EDT Office Visit [facility] MEDICINE [address] [place] [address] Hoa Beach MD [address] [place] [address] 07/21/2024 9:30 AM EDT Telemedicine [facility] MEDICINE [address] [place] [address] Tatyana Mann RN 11/03/2024 10:00 AM EDT Office Visit [facility] OPTOMETRY [address] [place], [place] [phone] Yesy Smith, KIM [address] [place] [address] documented as of this encounter Goals Goal Patient Goal Type Associated Problems Recent Progress Patient-Stated? Author Blood Pressure < 140/90 Blood Pressure 127/65(2023 1:40 PM EST) No Pretty Hearn PharmD Hemoglobin A1c < 7.5 Result Component 6.3( 1:17 PM EDT) No Pretty Hearn PharmD documented as of this encounter Visit Diagnoses Not on filedocumented in this encounter Additional Health Concerns Assessment Noted Time PHQ-9 Depression Total Score: 8 10/07/19 24 11:07 AM EDT documented as of this encounter Care Teams Field Nurse Relationship Specialty Start Date End Date Yvette Saxena MD [address] [place] [address] PCP - General Internal Medicine 04/24/22 Pretty Gray PharmD [address] [place] [address] Pharmacist Internal Medicine 06/23/23 documented as of this encounter
--- OUTSIDE RECORDS SUMMARY | 2024-05-27 21:28 | XMS_ITS | Encounter Summary ---
Author Organization [employer] Address 75 [facility] 7t [place] [address] Care Team Providers Care Fence Post Cutter Name Role Phone Yvette Saxena MD Primary Care Provide r Pretty Gray PharmD Unavailable [phone]- [phone] Encounter Details Date Type Department Care Team (Late st Contact Info) Description 05/18/2024 Orders Only [facility] MEDICINE [address] [place], [place] [phone] Yvette Saxena MD [address] [place], [place] [phone] Social History Tobacco Use Types Packs/Day Years [...] Description 06/30/2024 11:30 AM EDT Office Visit [facility] MEDICINE [address] [place] [address] Hoa Beach MD [address] [place] [address] 07/21/2024 9:30 AM EDT Telemedicine [facility] MEDICINE [address] [place] [address] Tatyana Mann RN 11/03/2024 10:00 AM EDT Office Visit [facility] OPTOMETRY [address] [place], [place] [phone] Yesy Smith, KIM [address] [place] [address] documented as of this encounter Goals Goal [...] Time PHQ-9 Depression Total Score: 8 10/07/19 11:07 AM EDT documented as of this encounter Care Teams Fence Post Cutter Relationship Specialty Start Date End Date Yvette Saxena MD [address] [place] [address] PCP - General Internal Medicine 04/24/22 Pretty Gray PharmD [address] [place] [address] Pharmacist Internal Medicine 06/23/23 documented as of this encounter
--- OUTSIDE RECORDS SUMMARY | 2024-05-27 21:28 | XMS_ITS | Encounter Summary ---
Author Organization [facility] Address [address] [facility] 7t [place] [address] Care Team Providers Care Table Maker Name Role Phone Yvette Saxena MD Primary Care Provide r Pretty Gray PharmD Unavailable [phone]- [phone] Reason for Visit * Reason Comments Med Refill Encounter Details Date Type Department Care Team (Late st Contact Info) Description 07/19/2023 Refill [facility] MEDICINE [address] [place], [place] [phone] Yvette Saxena MD [address] [place], [place] [phone] Type 2 diabetes mellitus with diabetic neuropathy, with long-term current use of insulin ([facility]) Social History Tobacco Use Types Packs/Day Years Used Date Smoking Tobacco: Former Cigarettes Passive Smoke Exposure: Current Smokeless Tobacco: Never Alcohol Use Standard Drinks/Week Comments Not Currently 0 (1 standard drink = 0.6 oz pur e alcohol) Depression Answer Date Recorded Patient Health Questionnaire-9 Score 0 04/24/2022 Housing Stability Answer Date Recorded What is your housing situation today? I have ludivinastephen gaitan 12/07/[address] you li ve. Do you have problems with any of the following? None of the above 12/07/2022 Food Insecurity Answer Date Recorded Within the past 12 months, y ou worried that your food would run out before you got money to buy more: Never True 12/07/2022 Within the past 12 months,th e food you bought just didn't last and you didn't have enough money to get more: Never True Transportation Answer Date Recorded In the past 12 months, has l ack of transportation kept you from medical appts, meetings, work or from getting things needed for daily living? No 12/07/2022 Utilities Answer Date Recorded In the past 12 months, has t he electric, gas, oil or water company threatened to shut off services in your home? No 12/07/2022 Depression Answer Date Recorded Patient Health Questionnaire-2 [...] Description 06/30/2024 11:30 AM EDT Office Visit [facility] MEDICINE [address] [place] [address] Hoa Beach MD [address] [place] [address] 07/21/2024 9:30 AM EDT Telemedicine [facility] MEDICINE [address] [place] [address] Tatyana Mann RN 11/03/2024 10:00 AM EDT Office Visit [facility] OPTOMETRY [address] [place] [address] Yesy Smith, OD [address] [place] [address] documented as of this encounter Goals Goal [...] neuropathy, with long-term current use of insulin ([facility]) documented in this encounter Additional Health Concerns Assessment Noted Time PHQ-9 Depression Total Score: 0 04/25/19 11:43 AM EST documented as of this encounter Care Teams Table Maker Relationship Specialty Start Date End Date Yvette Saxena MD [address] [place] [address] PCP - General Internal Medicine 04/24/22 Pretty Gray, GilmaD [address] [place] [address] Pharmacist Internal Medicine 06/23/23 documented as of this encounter
--- OUTSIDE RECORDS SUMMARY | 2024-05-27 21:28 | XMS_ITS | Encounter Summary ---
Author Organization [employer] Address [address] [facility] 7t [place] [address] Care Team Providers Care Small Parts Assembler Name Role Phone Yvette Saxena MD Primary Care Provide r Pretty Gray PharmD Unavailable [phone]- [phone] Encounter Details Date Type Department Care Team (Late st Contact Info) Description 12/17/2022 Abstract [facility] MEDICINE [address] [place] [address] Yvette Saxena MD [address] [place] [address] Social History Tobacco Use Types Packs/Day Years Used Date Smoking Tobacco: Former Cigarettes Passive Smoke Exposure: Current Smokeless Tobacco: Never Alcohol Use Standard Drinks/Week Comments Not Currently 0 (1 standard drink = 0.6 oz pur e alcohol) Depression Answer Date Recorded Patient Health Questionnaire-9 Score 0 04/24/2022 Housing Stability Answer Date Recorded What is your housing situation today? I have ludivina gaitan 12/07/[address] you [...] Description 06/30/2024 11:30 AM EDT Office Visit [facility] MEDICINE [address] [place] [address] Hoa Beach MD [address] [place] [address] 07/21/2024 9:30 AM EDT Telemedicine [facility] MEDICINE [address] [place] [address] Tatyana Mann RN 11/03/2024 10:00 AM EDT Office Visit [facility] OPTOMETRY [address] [place] [address] Luis, Yesy, OD [address] [place] [address] documented as of this encounter Visit Diagnoses Not on filedocumented in this encounter Additional Health Concerns Assessment Noted Time PHQ-9 Depression Total Score: 0 04/25/19 11:43 AM EST documented as of this encounter Care Teams Small Parts Assembler Relationship Specialty Start Date End Date Yvette Saxena MD [address] [place] [address] PCP - General Internal Medicine 04/24/22 Pretty Gray, Augusto [address] [place] [address] Pharmacist Internal Medicine 06/23/23 documented as of this encounter
--- OUTSIDE RECORDS SUMMARY | 2024-05-27 21:28 | XMS_ITS | Encounter Summary ---
Author Organization [employer] Address [address] [facility] 7t [place] [address] Care Team Providers Care Sludge Mill Operator Name Role Phone Yvette Saxena MD Primary Care Provide r Pretty Gray PharmD Unavailable [phone]- [phone] Reason for Visit * Reason Comments Med Refill Encounter Details Date Type Department Care Team (Late st Contact Info) Description 09/06/2022 Refill [facility] MEDICINE [address] [place] [address] Yvette Saxena MD [address] [place], [place] [phone] Arthralgia of both knees Social History Tobacco Use Types Packs/Day Years [...] Description 06/30/2024 11:30 AM EDT Office Visit [facility] MEDICINE [address] [place] [address] Hoa Beach MD [address] [place] [address] 07/21/2024 9:30 AM EDT Telemedicine [facility] MEDICINE [address] [place] [address] Tatyana Mann RN 11/03/2024 10:00 AM EDT Office Visit [facility] OPTOMETRY [address] [place] [address] Yesy Smith, OD [address] [place] [address] documented as of this encounter Visit Diagnoses Diagnosis Arthralgia of both knees documented in this encounter Additional Health Concerns Assessment Noted Time PHQ-9 Depression Total Score: 0 04/25/19 23 11:43 AM EST documented as of this encounter Care Teams Sludge Mill Operator Relationship Specialty Start Date End Date Yvette Saxena MD [address] [place] [address] PCP - General Internal Medicine 04/24/22 Pretty Gray PharmD [address] [place] [address] Pharmacist Internal Medicine 06/23/23 documented as of this encounter
--- OUTSIDE RECORDS SUMMARY | 2024-05-27 21:28 | XMS_ITS | Encounter Summary ---
Author Organization [employer] Address 75 [facility] 7t [place] [address] Care Team Providers Care Manager Wireless Name Role Phone Yvette Saxena MD Primary Care Provide r Pretty Gray PharmD Unavailable [phone]- [phone] Reason for Visit * Reason Comments Med Refill Encounter Details Date Type Department Care Team (Late st Contact Info) Description 05/27/2022 Refill [facility] PEDS [address] [place], [place] [phone] Patricia Hickman MD [address] [place] [address] Arthralgia of both knees Social History Tobacco [...] suspected to have Coronavirus/COVID-19? No / Unsure 05/28/2022 10:07 AM EDT documented as of this encounter Plan of Treatment Upcoming Encounters Date Type Department Care Team (Late st Contact Info) Description 06/30/2024 11:30 AM EDT Office Visit [facility] MEDICINE [address] [place] [address] Hoa Beach MD [address] [place] [address] 07/21/2024 9:30 AM EDT Telemedicine [facility] MEDICINE [address] [place] [address] Tatyana Mann, PAM 11/03/2024 10:00 AM EDT Office Visit [facility] OPTOMETRY [address] [place] [address] Yesy Smith, OD 230 [place] [address] documented as of this encounter Visit Diagnoses Diagnosis Arthralgia of both knees documented in this encounter Additional Health Concerns Assessment Noted Time PHQ-9 Depression Total Score: 0 04/25/19 23 11:43 AM EST documented as of this encounter Care Teams Manager Wireless Relationship Specialty Start Date End Date Yvette Saxena MD [address] [place] [address] PCP - General Internal Medicine 04/24/22 Pretty Gray PharmD [address] [place] [address] Pharmacist Internal Medicine 06/23/23 documented as of this encounter
[2024-05-27 21:44] LABS: Alanine Aminotransferase 9 U/L (0-40); Alkaline Phosphatase 63 U/L (39-117); Anion Gap 11 (12-20); Aspartate Amino Transferase 20 U/L (5-37); Bilirubin Total 0.2 mg/dL (0.0-1.0); Blood Urea Nitrogen 32 mg/dL (9-16); Calcium 9.1 mg/dL (8.4-10.2); Carbon Dioxide 22 mmol/L (22-29); Chloride 110 mmol/L (96-108); Creatinine Clr Calc Pharmacy 53.7; Estimated Glomerular Filt Rate 58; Glucose Random 137 mg/dL (60-115); Potassium 4.4 mmol/L (3.3-5.1); Sodium 139 mmol/L (135-145); Total Protein 7.4 g/dL (6.5-8.0)
[2024-05-27 21:51] LABS: Troponin-I High Sensitivity 3.8 ng/L (<3.5-35.0)
[2024-05-27] MEDS: Magnesium Hydrox/Alum Hydrox 30 ML ORAL.SUSP PO (22:15)
[2024-05-27 22:18] VITALS: BP 161/73; PULSE 84; RESP 15; TEMP 36.8; O2SAT 97
[2024-05-27 22:40] LABS: B Type Natriuretic Peptide 35 pg/mL (<100)
[2024-05-27 23:34] LABS: Troponin-I High Sensitivity 7.2 ng/L (<3.5-35.0)
[2024-05-28 00:30] VITALS: BP 156/82; PULSE 86; RESP 16; TEMP 36.8; O2SAT 95
[2024-05-28 00:32] VITALS: BP 156/82; PULSE 86; RESP 16; TEMP 36.8; O2SAT 95
== END 2024-05-28 00:34 | disposition home or self-care (01) ==
PROVIDERS: Emergency Provider Internal Medicine; PCP Internal Medicine
DX: R07.89 Other chest pain (principal); K21.9 Gastro-esophageal reflux disease without esophagitis; E11.9 Type 2 diabetes mellitus without complications; I10 Essential (primary) hypertension; E78.5 Hyperlipidemia, unspecified; Z79.82 Long term (current) use of aspirin; Z79.4 Long term (current) use of insulin; Z79.84 Long term (current) use of oral hypoglycemic drugs; Z79.02 Long term (current) use of antithrombotics/antiplatelets; Z79.85 Long-term (current) use of injectable non-insulin antidiabetic drugs; Z79.899 Other long term (current) drug therapy; Z87.891 Personal history of nicotine dependence
CPT/HCPCS: 36415; 71045; 80053; 83880; 84484; 85025; 93005; 99283; 99285

== ENCOUNTER → 2024-05-27 20:58 | Outpatient (BNV) | payer MEDICAID, SELFPAY | PROVIDERS: Emergency Provider Internal Medicine; PCP Internal Medicine; Visit Provider Internal Medicine | DX: I44.0 Atrioventricular block, first degree (principal) | CPT/HCPCS: 93010 ==

== ENCOUNTER → 2024-05-27 21:00 | Outpatient (BNV) | payer MEDICAID, SELFPAY | PROVIDERS: Emergency Provider Internal Medicine; PCP Internal Medicine; Visit Provider Radiology Neuroradiology | DX: R07.9 Chest pain, unspecified (principal) | CPT/HCPCS: 71045 ==

== ENCOUNTER 2024-11-17 16:34 | Emergency (ER) | payer MEDICAID, SELFPAY ==
--- NOTE | ~2024-11-17 | XR_ITS ---
EXAMINATION: XR CHEST CLINICAL INFORMATION: pain COMPARISON: May 27, 2024 TECHNIQUE: 2 views of the chest were obtained. FINDINGS: There are increased contrast densities the right lung compared to the prior. There are also increased interstitial markings. There is no focal opacity in the medial left lung base. No pleural effusion is identified on the lateral view. XR/XR chest 2V IMPRESSION: Suspected early pneumonia in the right lung versus early pulmonary edema. Atelectasis versus pneumonia in the medial left lung base. Electronically signed by: Jaskaran Calabrese MD 11/17/2024 05:01 PM EDT
[2024-11-17 16:41] VITALS: BP 121/63; PULSE 87; RESP 16; TEMP 37; O2SAT 97; BMI 28.3
--- NOTE | 2024-11-17 16:42 | ECG_ITS ---
Test Reason : cp sob Blood Pressure : */* mmHG Vent. Rate : 85 BPM Atrial Rate : 85 BPM P-R Int : 222 ms QRS Dur : 110 ms QT Int : 392 ms P-R-T Axes : 56 45 -76 degrees QTcB Int : 466 ms Sinus rhythm with 1st degree A-V block Possible Left atrial enlargement ST & T wave abnormality, consider inferolateral ischemia Prolonged QT Abnormal ECG When compared with ECG of 27-May-2024 20:58, T wave inversion now evident in Inferior leads T wave inversion now evident in Lateral leads Referred By: Lokesh Atwood Electronically Signed By: Darryl Robertson
--- NOTE | 2024-11-17 16:43 | ED.GENADULT ---
HPI - General Adult General Chief complaint: Chest Pain Stated complaint: Dizziness/SOB/Headache Time Seen by Provider: 11/17/24 18:24 History of Present Illness HPI narrative: Patient is a 74-year-old male presents today with having chest pain that is on the left chest it is associated with shortness of breath there is no diaphoresis it has been ongoing for about a week. Patient also complaining of coughing upper respiratory symptoms that is been ongoing for the last 5 days. Positive history of diabetes positive history of hypertension no history of [place] no history of high cholesterol no recent stress test patient is from home. Related Data Home Medications ?Medication ?Instructions ?Recorded ?Confirmed amlodipine 2.5 mg tablet 5 mg PO QAM 08/26/22 06/11/23 aspirin 81 mg tablet,delayed 81 mg PO DAILY 08/26/22 06/11/23 release blood pressure test kit-large #1 ea 08/26/22 clotrimazole 1 % topical cream 1 appl topical BID 08/26/22 06/11/23 cyanocobalamin (vitamin B-12) 1,000 mcg PO QAM 08/26/22 06/11/23 1,000 mcg tablet ferrous sulfate 325 mg (65 mg 325 mg PO QAM 08/26/22 06/11/23 iron) tablet,delayed release insulin glargine 100 unit/mL 12 unit subcut BID 08/26/22 06/11/23 subcutaneous solution (Lantus U-100 Insulin) ketoconazole 2 % shampoo 1 appl topical 2XW 08/26/22 06/11/23 lisinopril 40 mg tablet 40 mg PO DAILY 08/26/22 06/11/23 metformin 1,000 mg tablet 1,000 mg PO BID 08/26/22 06/11/23 pravastatin 40 mg tablet 40 mg PO BEDTIME 08/26/22 06/11/23 tramadol 50 mg tablet 50 mg PO Q8H PRN severe pain 08/26/22 06/11/23 dulaglutide 0.75 mg/0.5 mL 0.75 mg subcut QWEEK 06/11/23 subcutaneous pen injector (Trulicity) Previous Rx's ?Medication ?Instructions ?Recorded peg 3350-electrolytes 236 240 ml PO Q10M colonoscopy #4,000 04/09/23 gram-22.74 gram-6.74 gram-5.86 mL gram solution (Golytely) ibuprofen 400 mg tablet 400 mg PO Q6H PRN pain #20 tabs 02/09/24 pantoprazole 40 mg tablet,delayed 40 mg PO DAILY #30 tabs 05/28/24 release (Protonix) sucralfate 1 gram tablet 1 g PO TID #90 tabs 05/28/24 Allergies Allergy/AdvReac Type Severity Reaction Status Date / Time No Known Allergies Allergy Verified 11/17/24 16:44 Review of Systems Review of Systems: Positive chest pain Yes all other systems are reviewed and are negative [facility] Past Medical History Attestation statement: The following information was validated with the patient. Medical History Depression H/O renal calculi Peripheral neuropathy Hyperlipemia Diabetes Hypertension Surgical History History of esophagogastroduodenoscopy (EGD) Hx of colonoscopy History of umbilical hernia repair Family History Family History Mother No problems noted. Father No problems noted. Social History Social History Alcohol intake: never Patient Tobacco Use Status: Former Tobacco user Smoked in Last 30 Days: No Use of substances other than those prescribed or required for medical reasons: No Advance Directives: No Advance Directives Information Provided: No Current occupational status: employed Current occupation: right handed Physical Exam ED Exam Exam: Appearance: Alert. Oriented X3. No acute distress. Eyes: Pupils equal, round and reactive to light. ENT: Pharynx normal. Neck: Normal inspection. Neck supple. No lymph nodes noted. No crepitus CVS: Normal heart rate and rhythm. Pulses normal. Normal S1 and S2 Respiratory: No respiratory distress. Breath sounds normal. No Wheezing. No rales Abdomen: Soft and nontender. No rigidity. No distention. good BS x4 Skin: Skin warm and dry. Normal skin color. Normal skin turgor. Extremities: No lower extremity edema. Neurovascular intact to all extremities. No Lacerations. No Rash Neuro: Oriented X 3. No motor deficit. No sensory deficit. Moving all extermities. No slurred speech Vital Signs: Vital Signs - 24 hr 11/17/24 16:41 11/17/24 18:28 11/17/24 19:29 Temperature 98.6 F 98.9 F Pulse Rate 87 88 77 Respiratory Rate 16 20 20 Blood Pressure 121/63 139/79 124/70 Pulse Oximetry 97 95 99 Oxygen Delivery Method Room Air Room Air Room Air BMI result Body Mass Index 28.3 Course Course Course Narrative: RME, this is a rapid medical exam performed by Richie Atwood please refer to primary provider for complete H&P- 74-year-old male presents for evaluation of chest pain and dizziness. He has positive sick contacts with COVID-19 diagnosis at home. Plan for EKG, labs, viral swabs Medications Administered Discontinued Medications Generic Name Dose Route Start Last Admin Trade Name Freq PRN Reason Stop Dose Admin Aspirin 324 mg 11/17/24 18:40 11/17/24 18:57 Aspirin 81 Mg Tab.Chew PO 11/17/24 18:41 324 mg ONCE ONE Administration Atorvastatin Calcium 80 mg 11/17/24 18:40 11/17/24 18:57 Atorvastatin Calcium 80 Mg Tablet PO 11/17/24 18:41 80 mg ONCE ONE Administration Heparin Sodium (Porcine) 4,000 unit 11/17/24 18:37 11/17/24 18:57 Heparin Sodium,Porcine 5,000 Unit/Ml Vial IVPUSH 11/17/24 18:38 4,000 unit ONCE ONE Administration Ticagrelor 180 mg 11/17/24 18:40 11/17/24 18:57 Ticagrelor 90 Mg Tablet PO 11/17/24 18:41 180 mg ONCE ONE Administration Medical Decision Making Medical Decision Making [facility] Narrative: 74 years old presents today with having chest pain ongoing for about a week. Associated with shortness of breath. My interpretation patient's EKG showed a sinus rhythm heart rate was 90 MT QRS QTC within normal limits there is significant T-wave inversion over the lateral leads and over the inferior leads. This is new when compared to a previous EKG from May. We repeated the EKG is showed the same. Patient's troponin grossly elevated at over 5000. Case was consulted with Cardiology at [facility] recommended for patient be transferred to [facility]. Patient's case discussed with interventional is at [facility]. [place] patient did not meet criteria for STEMI. Will discussed with transfer center about transferring patient. Started on Brilinta started on heparin started on aspirin and Lipitor. Patient has been accepted by [facility]. Awaiting bed placement at this point. Heparin bolus given. Differential Diagnosis Differential Diagnoses: The differential diagnosis associated with the presentation includes NSTEMI versus STEMI versus COVID flu RSV Admission/Observation Consideration of admission/observation: Escalation of care including admission/observation considered Consult Healthcare Provider Management of the patient was discussed with: Hospitalist Lab Data [facility] Lab Attestation statement: I reviewed the patient's lab results. 11/17/24 17:16 11/17/24 17:16 Labs: Lab Results 11/17/24 11/17/24 Range/Units 17:16 18:56 WBC 7.7 (4.8-10.8) X10*3/uL RBC 3.74 L (4.60-5.80) X10*6/uL Hgb 10.7 L (14.0-18.0) g/dl Hct 32.5 L (42.0-52.0) % MCV 86.9 (80.0-98.0) fL MCH 28.6 (27.0-33.0) pg MCHC 32.9 (31.0-36.0) g/dl RDW 12.5 (11.0-16.0) % Plt Count 245 (160-400) X10*3/uL MPV 10.3 (9.4-12.4) fL Immature Gran % (Auto) 0.4 (0.0-0.4) % Neut % (Auto) 53.2 (45-73) % Lymph % (Auto) 32.2 (20-40) % [place] % (Auto) 11.4 H (2-11) % Eos % (Auto) 2.3 (0-4) % Baso % (Auto) 0.5 (0-2) % Lymph # (Auto) 2.5 (1.2-4.9) X10*3/uL [place] # (Auto) 0.9 (0.1-1.2) X10*3/uL Eos # (Auto) 0.2 (0.0-0.4) X10*3/uL Baso # (Auto) 0.0 (0.0-0.2) X10*3/uL Abs Immat Gran (auto) 0.03 (0.00-0.03) X10*3/uL Absolute Neuts (auto) 4.1 (2.0-8.3) x10*3/uL Absolute Nucleated RBC 0.000 (0.0-0.012) X10*3/uL Nucleated RBC % (auto) 0.0 (0.0-0.2) /100WBC PT 11.9 (10.9-12.4) SEC INR 1.0 (0.9-1.1) APTT 29.4 (26.7-34.1) SEC Sodium 139 (135-145) mmol/L Potassium 4.5 (3.3-5.1) mmol/L Chloride 110 H (96-108) mmol/L Carbon Dioxide 22 (22-29) mmol/L Anion Gap 12 (12-20) BUN 21 H (9-16) mg/dL Creatinine 1.49 H (0.5-1.4) mg/dL Estim Creat Clear Calc 43.2 Estimated GFR 46 Random Glucose 95 (60-115) mg/dL Calcium 9.0 (8.4-10.2) mg/dL Total Bilirubin 0.3 (0.0-1.0) mg/dL AST 43 H (5-37) U/L ALT 12 (0-40) U/L Alkaline Phosphatase 70 (39-117) U/L Troponin I High Sens 5718.1 H* D (<3.5-35.0) ng/L Total Protein 7.4 (6.5-8.0) g/dL Albumin 3.9 (3.5-5.0) g/dL COVID-19 (RHIANNA) Positive A (Negative) COVID-19 Clin Com See Note Influenza Type A (ELIZABETH) Negative (Negative) Influenza Type B (ELIZABETH) Negative (Negative) Influenza A & B Note See Note Independent Interpretation I performed an independent interpretation of an: EKG (My interpretation patient's EKG showed a sinus rhythm heart rate is 90 MT QRS QTC within normal limits there is no acute ST segment elevation there is significant T-wave inversion over the lateral and inferior leads which are new.) and Plain X-Ray (Chest x-ray was negative for pneumonia no pneumothorax) Interpretation: My interpretation of patient's 2nd EKG showed a sinus rhythm heart rate was 90 MT QRS QTC normal there is no acute ST segment elevation there is T-wave inversion over the inferior and in the lateral leads. The EKG is not changed from the previous EKG done when patient presented. Radiology Impression Discussion of test interpretation with radiology: I have reviewed the radiologist's reading. Independent Historian Clinical information obtained from an independent historian. History obtained from or confirmed by: Other (Case discussed with patient's daughter. Additional history obtained) External Record Review External record reviewed: Inpatient record Tests considered The following testing was considered but not selected: No need for CTA of the chest Chronic Conditions Patient?s care impacted by: Diabetes and Hypertension Social Determinants Patient?s care significantly limited by Social Determinants of Health including: Problems related to primary support group Critical Care Time Critical Care Time Critical Care Time: Yes Total Critical Care Time: 60 Attestation: I have personally provided 60 minutes of critical care time exclusive of time spent on separately billable procedures. ?Time includes review of lab data, radiology results, discussion with consultants, and monitoring for potential decompensation. ?Interventions were performed as documented above Discharge Plan Discharge Clinical Impression: Non-ST elevation TN (NSTEMI) Prescriptions: No Action peg 3350-electrolytes [Golytely] 236-22.74-6.74 -5.86 gram recon soln 240 ml PO Q10M Qty: 4000 0RF Rx Instructions: as per split prep instructions, until fecal effluent is clear Trulicity 0.75 mg/0.5 mL pen injector 0.75 mg subcut QWEEK Rx Instructions: takes Wednesday ibuprofen 400 mg tablet 400 mg PO Q6H PRN (Reason: pain) Qty: 20 0RF pantoprazole [Protonix] 40 mg tablet,delayed release (DR/EC) 40 mg PO DAILY Qty: 30 0RF sucralfate 1 gram tablet 1 g PO TID Qty: 90 0RF ferrous sulfate 325 mg (65 mg iron) tablet,delayed release (DR/EC) 325 mg PO QAM tramadol 50 mg tablet 50 mg PO Q8H PRN (Reason: severe pain) clotrimazole 1 % cream 1 appl topical BID insulin glargine [Lantus U-100 Insulin] 100 unit/mL solution 12 unit subcut BID metformin 1,000 mg tablet 1,000 mg PO BID ketoconazole 2 % shampoo 1 appl topical 2XW cyanocobalamin (vitamin B-12) 1,000 mcg tablet 1,000 mcg PO QAM amlodipine 2.5 mg tablet 5 mg PO QAM lisinopril 40 mg tablet 40 mg PO DAILY aspirin 81 mg tablet,delayed release (DR/EC) 81 mg PO DAILY pravastatin 40 mg tablet 40 mg PO BEDTIME (DME) blood pressure test kit-large Kit See Rx Instructions .ROUTE QAM Qty: 1 Rx Instructions: As directed Print Language: Pashto
[2024-11-17 17:29] LABS: MANUAL DIFF FLAG NO
[2024-11-17 17:30] LABS: Hematocrit 32.5 % (42.0-52.0); Hemoglobin 10.7 g/dl (14.0-18.0); Imm Gran Abs Auto 0.03 X10*3/uL (0.00-0.03); Imm Gran Pct Auto 0.4 % (0.0-0.4); Lymphocytes Absolute Auto 2.5 X10*3/uL (1.2-4.9); Mean Corpuscular HGB Conc 32.9 g/dl (31.0-36.0); Mean Corpuscular Hemoglobin 28.6 pg (27.0-33.0); Mean Corpuscular Volume 86.9 fL (80.0-98.0); NRBC Abs Auto 0.000 X10*3/uL (0.0-0.012); NRBC Pct Auto 0.0 /100WBC (0.0-0.2); Platelet Count 245 X10*3/uL (160-400); Red Blood Count 3.74 X10*6/uL (4.60-5.80); White Blood Count 7.7 X10*3/uL (4.8-10.8)
[2024-11-17 17:45] LABS: Alanine Aminotransferase 12 U/L (0-40); Albumin Level 3.9 g/dL (3.5-5.0); Alkaline Phosphatase 70 U/L (39-117); Anion Gap 12 (12-20); Aspartate Amino Transferase 43 U/L (5-37); Blood Urea Nitrogen 21 mg/dL (9-16); Calcium 9.0 mg/dL (8.4-10.2); Carbon Dioxide 22 mmol/L (22-29); Chloride 110 mmol/L (96-108); Creatinine Clr Calc Pharmacy 43.2; Estimated Glomerular Filt Rate 46; Potassium 4.5 mmol/L (3.3-5.1); Sodium 139 mmol/L (135-145); Total Protein 7.4 g/dL (6.5-8.0)
[2024-11-17 17:51] LABS: COVID-19 Test Positive (Negative); IDNOW Serial# 152EDE1D; IDNOW Serial# 16C4AD1C; Influenza B2 Negative (Negative)
[2024-11-17 18:14] LABS: Troponin-I High Sensitivity 5718.1 ng/L (<3.5-35.0)
--- NOTE | 2024-11-17 18:23 | ECG_ITS ---
Test Reason : REPEAT EKG Blood Pressure : */* mmHG Vent. Rate : 87 BPM Atrial Rate : 87 BPM P-R Int : 208 ms QRS Dur : 106 ms QT Int : 388 ms P-R-T Axes : 54 48 -50 degrees QTcB Int : 466 ms Normal sinus rhythm Possible Left atrial enlargement ST & T wave abnormality, consider inferolateral ischemia Prolonged QT Abnormal ECG When compared with ECG of 17-Nov-2024 16:46, No significant change was found Referred By: Lokesh Atwood Electronically Signed By: Darryl Robertson
[2024-11-17 18:28] VITALS: BP 139/79; PULSE 88; RESP 20; O2SAT 95
--- NOTE | 2024-11-17 18:33 | PC.NURSE ---
Pt alert/oriented. Djiboutian speaking. Skin color pink warm and dry. Reports left sided CP x 1 week with SOB x 3 days. Reports recent sick contacts at home with COVID. Also reports chest pain approx 2 days ago was in b/l arms and whole chest but today only reports pain/pressure to left chest region. NSR on tele. Afebrile. Breathing even/unlabored. Daughter at bedside. 1g placed to left ac and 20g to right ac. Repeat EKG obtained.
--- OUTSIDE RECORDS SUMMARY | 2024-11-17 19:06 | XMS_ITS | Encounter Summary ---
Author Organization [employer] Address [address] [facility] 7t [place] [address] Care Team Providers Care Double Corner Cutter Name Role Phone Yvette Saxena MD Primary Care Provide r Pretty Gray PharmD Unavailable [phone] Reason for Visit * Reason Onset Date Comments Med Refill 07/29/2022 Encounter Details Date Type Department Care Team (Late st Contact Info) Description 07/29/2022 Telephone [facility] MEDICINE [address] [place], [place] [phone] Yvette Saxena MD [address] [place], [place] [phone] Med Refill Social History Tobacco Use Types [...] again to pcp. * Telephone Encounter - uFad Guzman - 07/31/2022 2:04 PM EDT Tc from pt requesting status on tramadol med * Telephone Encounter - Rosetta Ham - 07/29/2022 9:42 AM EDT Tc from patient requesting a med refill on medication tramadol [address] Joshi documented in this encounter Plan of Treatment Upcoming Encounters Date Type Department Care Team (Late st Contact Info) Description 12/15/2024 11:00 AM EDT Telemedicine [facility] MEDICINE [address] [place] [address] Tatyana Mann, PAM documented as of this encounter Visit Diagnoses Not on filedocumented in this encounter Additional Health Concerns Assessment Noted Time PHQ-9 Depression Total Score: 0 04/25/19 23 11:43 AM EST documented as of this encounter Care Teams Double Corner Cutter Relationship Specialty Start Date End Date Yvette Saxena MD [address] [place] [id number] PCP - General Internal Medicine 04/24/22 Pretty Gray PharmD [address] [place] [address] Pharmacist Internal Medicine 06/23/23 documented as of this encounter
--- OUTSIDE RECORDS SUMMARY | 2024-11-17 19:06 | XMS_ITS | Encounter Summary ---
Author Organization [employer] Address [address] [facility] 7t [place] [address] Care Team Providers Care Sled Maker Name Role Phone Yvette Saxena MD Primary Care Provide r Pretty Gray PharmD Unavailable [phone] Reason for Visit * Reason Comments Med Refill Encounter Details Date Type Department Care Team (Late st Contact Info) Description 09/06/2022 Refill [facility] MEDICINE [address] [place], [place] [phone] Yvette Saxena MD [address] [place], [place] [phone] Arthralgia of both knees Social History Tobacco [...] Info) Description 12/15/2024 11:00 AM EDT Telemedicine [facility] MEDICINE [address] [place] [address] Tatyana Mann, RN documented as of this encounter Visit Diagnoses Diagnosis Arthralgia of both knees documented in this encounter Additional Health Concerns Assessment Noted Time PHQ-9 Depression Total Score: 0 04/25/19 23 11:43 AM EST documented as of this encounter Care Teams Sled Maker Relationship Specialty Start Date End Date Yvette Saxena MD [address] [place] [address] PCP - General Internal Medicine 04/24/22 Pretty Gray, Aguusto [address] [place] [phone] Pharmacist Internal Medicine 06/23/23 documented as of this encounter
--- OUTSIDE RECORDS SUMMARY | 2024-11-17 19:06 | XMS_ITS | Encounter Summary ---
Author Organization [employer] Address [address] [facility] 7t [place] [address] Care Team Providers Care Jet Worker Name Role Phone Yvette Saxena MD Primary Care Provide r Pretty Gray PharmD Unavailable [phone] Encounter Details Date Type Department Care Team ([facility] st Contact Info) Description 12/17/2022 Abstract [facility] MEDICINE [address] [place] [address] Yvette Saxena MD [address] [place] [address] Social History Tobacco Use Types Packs/Day Years [...] Info) Description 12/15/2024 11:00 AM EDT Telemedicine [facility] MEDICINE [address] [place] [phone] Tatyana Mann, PAM documented as of this encounter Visit Diagnoses Not on filedocumented in this encounter Additional Health Concerns Assessment Noted Time PHQ-9 Depression Total Score: 0 04/25/19 11:43 AM EST documented as of this encounter Care Teams Jet Worker Relationship Specialty Start Date End Date Yvette Saxena MD [address] [place] [address] PCP - General Internal Medicine 04/24/22 Pretty Gray, GilmaD [address] [place] [phone] Pharmacist Internal Medicine 06/23/23 documented as of this encounter
--- OUTSIDE RECORDS SUMMARY | 2024-11-17 19:06 | XMS_ITS | Encounter Summary ---
Author Organization [employer] Address [address] [facility] 7t [place] [address] Care Team Providers Care Clinical Laboratory Aide Name Role Phone Yvette Saxena MD Primary Care Provide r Pretty Gray PharmD Unavailable [phone] Reason for Visit * Reason Comments Med Refill Encounter Details Date Type Department Care Team (Late st Contact Info) Description 10/20/2024 Refill [facility] MEDICINE [address] [place], [place] [phone] Yvette Saxena MD [address] [place], [place] [phone] Arthralgia of both knees Social History Tobacco [...] Answer Date Recorded Internet Access Q1 Yes 10/08/2024 Internet Access Q2 Not on file 10/08/2024 Sex and Gender Information Value Date Recorded [...] Info) Description 12/15/2024 11:00 AM EDT Telemedicine [facility] MEDICINE [address] [place] [address] Tatyana Mann RN documented as of this encounter Goals Goal Patient Goal Type Associated Problems Recent Progress Patient-Stated? Author Blood Pressure < 140/90 Blood Pressure 132/74(2024 9:06 AM EDT) No Piers-Gambl e, Pretty, PharmD Hemoglobin A1c < 7.5 Result Component 5.7( 9:08 AM EDT) No Piers-Gambl e, Pretty, PharmD documented as of this encounter Visit Diagnoses Diagnosis Arthralgia of both knees documented in this encounter Additional Health Concerns Assessment Noted Time PHQ-9 Depression Total Score: 8 10/07/19 11:07 AM EDT documented as of this encounter Care Teams Clinical Laboratory Aide Relationship Specialty Start Date End Date Yvette Saxena MD [address] [place] [address] PCP - General Internal Medicine 04/24/22 Pretty Gray, GilmaD [address] [place] [address] [place] [address] Pharmacist Internal Medicine 06/23/23 documented as of this encounter
--- OUTSIDE RECORDS SUMMARY | 2024-11-17 19:06 | XMS_ITS | Encounter Summary ---
Author Organization [employer] Address [address] [facility] 7t [place] [address] Care Team Providers Care Flap Presser Name Role Phone Yvette Saxena MD Primary Care Provide r Pretty Gray PharmD Unavailable [phone]- [phone] Encounter Details Date Type Department Care Team (Late Contact Info) Description 03/30/2022 Abstract [facility] MEDICINE [address] [place] [phone] Johnathan Sánchez MD [address] [place] [address] Social History Tobacco Use Types Packs/Day Years [...] Info) Description 12/15/2024 11:00 AM EDT Telemedicine [facility]INE [address] [place] [address] Tatyana Mann RN documented as of this encounter Procedures Procedure Name Priority Date/Time Associated Diagnosis Comments COLONOSCOPY Routine 05/25/2017 documented in this encounter Results * Hm Colonoscopy (05/25/2017) Colonoscopy Normal Colonoscopy repeat in 10 years us Historical Provider HEALTH MAINTENANCE Final Result documented in this encounter Visit Diagnoses Not on filedocumented in this encounter Care Teams Flap Presser Relationship Specialty Start Date End Date Yvette Saxena MD [address] [place] [address] PCP - General Internal Medicine 04/24/22 Pretty Gray, Augusto [address] [place] [address] Pharmacist Internal Medicine 06/23/23 documented as of this encounter
--- OUTSIDE RECORDS SUMMARY | 2024-11-17 19:06 | XMS_ITS | Encounter Summary ---
Author Organization [employer] Address [address] [facility] 7t [place] [address] Care Team Providers Care General Agent Name Role Phone Yvette Saxena MD Primary Care Provide r Pretty Gray PharmD Unavailable [phone]- [phone] Reason for Visit * Reason Comments Med Refill Encounter Details Date Type Department Care Team (Late st Contact Info) Description 05/21/2022 Refill [facility] [address] [place], [place] [phone] Johnathan Sánchez MD 230 [place] [address] Social History Tobacco Use Types Packs/Day Years [...] Info) Description 12/15/2024 11:00 AM EDT Telemedicine [facility] MEDICINE 230 [place] [address] Tatyana Mann, PAM documented as of this encounter Visit Diagnoses Not on filedocumented in this encounter Additional Health Concerns Assessment Noted Time PHQ-9 Depression Total Score: 0 04/25/19 23 11:43 AM EST documented as of this encounter Care Teams General Agent Relationship Specialty Start Date End Date Yvette Saxena MD [address] [place] [phone] PCP - General Internal Medicine 04/24/22 Pretty Gray PharmD [address] [place] [phone] Pharmacist Internal Medicine 06/23/23 documented as of this encounter
--- OUTSIDE RECORDS SUMMARY | 2024-11-17 19:06 | XMS_ITS | Encounter Summary ---
Author Organization [employer] Address [address] [facility] 7t [place] [address] Care Team Providers Care Job Site Superintendent Name Role Phone Yvette Saxena MD Primary Care Provide r Pretty Gray PharmD Unavailable [phone]- [phone] Reason for Visit * Reason Onset Date Comments Durable Medical Equipment 02/14/2024 Encounter Details Date Type Department Care Team ([facility] st Contact Info) Description 02/14/2024 Telephone [facility] MEDICINE [address] [place], [place] [phone] Yvette Saxena MD [address] [place], [place] [phone] Durable Medical Equipment Social History Tobacco Use [...] Info) Description 12/15/2024 11:00 AM EDT Telemedicine [facility] MEDICINE [address] [place] [phone] Tatyana Mann RN documented as of this encounter Goals Goal Patient Goal Type Associated Problems Recent Progress Patient-Stated? Author Blood Pressure < 140/90 Blood Pressure 132/74(2024 9:06 AM EDT) No Pretty Hearn PharmD Hemoglobin A1c < 7.5 Result Component 5.7(07/10/202 5 9:08 AM EDT) No Pretty Hearn PharmD documented as of this encounter Visit Diagnoses Not on filedocumented in this encounter Additional Health Concerns Assessment Noted Time PHQ-9 Depression Total Score: 8 10/07/19 24 11:07 AM EDT documented as of this encounter Care Teams Job Site Superintendent Relationship Specialty Start Date End Date Yvette Saxena MD [address] [place] [address] PCP - General Internal Medicine 04/24/22 Pretty Gray, PharmD [address] [place] [address] Pharmacist Internal Medicine 06/23/23 documented as of this encounter
--- OUTSIDE RECORDS SUMMARY | 2024-11-17 19:06 | XMS_ITS | Encounter Summary ---
Author Organization [employer] Address [address] [facility] [address] 7t [place] [address] Care Team Providers Care Scrubber Machine Tender Name Role Phone Yvette Saxena MD Primary Care Provide r Pretty Gray PharmD Unavailable [phone]- [phone] Encounter Details Date Type Department Care Team (Late st Contact Info) Description 11/17/2024 Orders Only [facility] External Provider, [facility] Social History Tobacco Use Types Packs/Day Years [...] Info) Description 12/15/2024 11:00 AM EDT Telemedicine [facility] MEDICINE [address] [place] [phone] Tatyana Mann, PAM documented as of this encounter Goals Goal Patient Goal Type Associated Problems Recent Progress Patient-Stated? Author Blood Pressure < 140/90 Blood Pressure 132/74(2024 9:06 AM EDT) No Checos-Kamilla Marquezsa, PharmD Hemoglobin A1c < 7.5 Result Component 5.7( 9:08 AM EDT) No Pretty Hearn, PharmD documented as of this encounter Procedures Procedure Name Priority Date/Time Associated Diagnosis Comments INFLUENZA A B2 ID NOW ([facility]) Routine 11/17/2024 5:16 PM EDT COVID-19 ID NOW ([facility]) Routine 11/17/2024 5:16 PM EDT HIGH SENSITIVITY TROPONIN I Routine 11/17/2024 5:16 PM EDT CBC WITH AUTO DIFFERENTIAL Routine 11/17/2024 5:16 PM EDT COMPREHENSIVE METABOLIC PANEL Routine 11/17/2024 5:16 PM EDT XR CHEST 2 VIEWS Routine 11/17/2024 4:59 PM EDT documented in this encounter Results * (ABNORMAL) High Sensitivity Troponin I (11/17/2024 5:16 PM EDT) Pathologist [facility] TROPONIN I HIGH SENSITIVITY 5,718.1(H H) <3.5 - 35.0 ng/L [facility] Comment:Critical value for t est(s): TROP Results called to yoandy back by: MADHAVI Person calling: DAGMAR Date:11.17.24 Time: 1813The [facility] high sensitivity Troponin-I results should beused in conjunction with other diagnostic information suchas ECG, clinical observations and information, and patientsymptoms to aid in the diagnosis of [place]. 11/17/2024 5:16 PM EDT 11/17/2024 5:27 PM EDT us Generic External Data Provider LAB BLOOD ORDERAB LES Final Result [facility] [address] [place] [phone] * Influenza A B2 ID NOW ([facility]) (11/17/2024 5:16 PM EDT) Pathologist [facility] IDNOW SERIAL# [id number] [facility] Influenza A Negative Negative [facility] Influenza B2 Negative Negative [facility] Influenza A B2 Note See Note [facility] Comment:The [facility] ID NOW In fluenza A B2 test is used for thequalitative detection of influenza A and B from patientswith signs and symptoms of respiratory infection.Negative results do not preclude influenza virus infectionand should not be used as the sole basis for diagnosis,treatment or other patient management decisions.There is a risk of false negative results due to thepresence of variants in the viral targets of the assay, lowlevels of virus in the specimen and co- infection withRespiratory Syncytial Virus. 11/17/2024 5:16 PM EDT 11/17/2024 5:27 PM EDT us Generic External Data Provider LAB MICROBIOLOGY - GENERAL ORDERABLES Final Result Performing Organization Address [facility] Hospital/ZIP Co de Phone Number [facility] [address] [place] [phone] * (ABNORMAL) COVID-19 ID NOW ([facility]) (11/17/2024 5:16 PM EDT) IDNOW SERIAL# [id number] [facility] COVID-19 TEST Positive (A) Negative [facility] COVID-19 NOTE See Note [facility] Comment: Results are for the identification of SARS-CoV2 RNA. TheSARS-CoV2 RNA is generally detectable in respiratory samplesduring the acute phase of infection. Positive results areindicative of the presence of SARS-CoV-2 RNA; clinicalcorrelation with patient history and other diagnosticinformation is necessary to determine patient infectionstatus. Positive results do not rule out bacterial infectionor co- infection with other viruses.Testing facilities within the [facility] are required to report all positive results tothe appropriate public health authorities.Negative results should be treated as presumptive and, ifinconsistent with clinical signs and symptoms or necessaryfor patient management, should be tested with differentauthorized or cleared molecular tests. Negative results donot preclude SARS-CoV2 RNA infection and should not be usedas the sole basis for patient management decisions. Negativeresults should be considered in the context of a patient'srecent exposures, history and the presence of clinical signsand symptoms consistent with COVID-19.This test has been authorized by the FDA under an EmergencyUse Authorization (EUA) for use by authorized laboratories.Testing performed on the [facility] ID NOW utilizing NAAT. 11/17/2024 5:16 PM EDT 11/17/2024 5:27 PM EDT us Generic External Data Provider LAB MOLECULAR RADHA GNOSTICS ORDERABLES Final Result Performing Organization Address City/[facility] Hospital/ZIP Co de Phone Number [facility] [address] [place] [phone] * (ABNORMAL) Comprehensive Metabolic Panel (11/17/2024 5:16 PM EDT) Sodium 139 135 - 145 mmol/L [facility] Potassium 4.5 3.3 - 5.1 mmol/L [facility] Chloride 110(H) 96 - 108 mmol/L [facility] Carbon Dioxide 22 22 - 29 mmol/L [facility] Anion Gap 12 12 - 20 [facility] Urea Nitrogen (BUN) 21(H) 9 - 16 mg/dL [facility] Creatinine, Serum 1.49(H) 0.5 - 1.4 mg/dL [facility] Creatinine Clr Calc Pharmacy 43.2 [facility] Comment:eGFR (calculated fro m the MDRD study equation) and eCrCl(calculated from the Cockcroft-Gault equation) are based ondifferent parameters and may not yield comparable results.If eCrCl result is absurd, please check patient'sheight/weight. Estimated Glomerular Filt Rate 46 [facility] Comment:Chronic Kidney Disea se: Estimated GFR < 60 mL/min/1.78u0Sjaduh Kidney Disease: Estimated GFR < 15 mL/min/1.73m2 Glucose 95 60 - 115 mg/dL [facility] Calcium 9.0 8.4 - 10.2 mg/dL [facility] Bilirubin, Total 0.3 0.0 - 1.0 mg/dL [facility] Aspartate Amino Transferase 43(H) 5 - 37 U/L [facility] Alanine Aminotransferase 12 0 - 40 U/L [facility] Total Protein 7.4 6.5 - 8.0 g/dL [facility] Albumin Level 3.9 3.5 - 5.0 g/dL [facility] Alkaline Phosphatase 70 39 - 117 U/L [facility] 11/17/2024 5:16 PM EDT 11/17/2024 5:27 PM EDT us Generic External Data Provider LAB BLOOD ORDERAB LES Final Result [facility] [address] [place], [place] [phone] * (ABNORMAL) CBC auto differential (11/17/2024 5:16 PM EDT) White Blood Count 7.7 4.8 - 10.8 X10*3/uL [facility] Red Blood Count 3.74(L) 4.60 - 5.80 X10*6/uL [facility] Hemoglobin 10.7(L) 14.0 - 18.0 g/dl [facility] Hematocrit 32.5(L) 42.0 - 52.0 % [facility] Mean Corpuscular Volume 86.9 80.0 - 98.0 fL [facility] Mean Corpuscular Hemoglobin 28.6 27.0 - 33.0 pg [facility] Mean Corpuscular HGB Conc 32.9 31.0 - 36.0 g/dl [facility] Red Cell Distribution Width 12.5 11.0 - 16.0 % [facility] Platelet Count 245 160 - 400 X10*3/uL [facility] Mean Platelet Volume 10.3 9.4 - 12.4 fL [facility] Neutrophils Percent Auto 53.2 45 - 73 % [facility] Imm Gran Pct Auto 0.4 0.0 - 0.4 % [facility] Lymphocytes Percent Auto 32.2 20 - 40 % [facility] Monocytes Percent Auto 11.4(H) 2 - 11 % [facility] Eosinophils Percent Auto 2.3 0 - 4 % [facility] Basophils Percent Auto 0.5 0 - 2 % [facility] NRBC Pct Auto 0.0 0.0 - 0.2 /100WBC [facility] Neutrophils Absolute Auto 4.1 2.0 - 8.3 x10*3/uL [facility] Imm Gran Abs Auto 0.03 0.00 - 0.03 X10*3/uL [facility] Lymphocytes Absolute Auto 2.5 1.2 - 4.9 X10*3/uL [facility] Monocytes Absolute Auto 0.9 0.1 - 1.2 X10*3/uL [facility] Eosinophils Absolute Auto 0.2 0.0 - 0.4 X10*3/uL [facility] Basophils Absolute Auto 0.0 0.0 - 0.2 X10*3/uL [facility] NRBC Abs Auto 0.000 0.0 - 0.012 X10*3/uL [facility] 11/17/2024 5:16 PM EDT 11/17/2024 5:27 PM EDT us Generic External Data Provider LAB BLOOD ORDERAB LES Final Result Performing Organization Address City/State/[facility] Co de Phone Number [facility] [address] [place] [phone] * XR Chest 2 Views (11/17/2024 4:59 PM EDT) Anatomical Region Laterality Modality Chest Radiographic Ileana ging 11/17/2024 4:59 PM EDT Narrative 11/17/2024 5:04 PM EDT [address] [address] XRay Report Signed Patient: Jose Burch MR#: [id number] 6 : 1950 Acct:[id number] Age/Sex: 74 / M ADM Date: 11/17/24 Loc: .ED Attending Dr: Ordering Physician: Lokesh Atwood Date of Service: 11/17/24 Procedure(s): XR chest 2V Accession Number(s): [id number] cc: Yvette Saxena MD; Lokesh Atwood Reason for Exam: pain EXAMINATION: XR CHEST CLINICAL INFORMATION: pain COMPARISON: May 27, 2024 TECHNIQUE: 2 views of the chest were obtained. FINDINGS: There are increased contrast densities the right lung compared to the prior. There are also increased interstitial markings. There is no focal opacity in the medial left lung base. No pleural effusion is identified on the lateral view. XR/XR chest 2V IMPRESSION: Suspected early pneumonia in the right lung versus early pulmonary edema. Atelectasis versus pneumonia in the medial left lung base. Electronically signed by: Jaskaran Calabrese MD 11/17/2024 05:01 PM EDT RP Dictated By: Jaskaran Calabrese MD Signed By: <Electronically signed by Jaskaran Calabrese MD in OV> 11/17/24 170 DD/ 58 TD/TT: 11/17/241654 Rocket Test Fire Worker: Procedure Note Donotuseinterpreter, Image - 11/17/2024 [place] [address] XRay Report Signed Patient: Jose BurchMR#: [id number] 6 : 9Acct:[id number] Age/Sex: 74 / MADM Date: 11/17/24 Loc: .ED Attending Dr: Ordering Physician: Lokesh Atwood Date of Service: 11/17/24 Procedure(s): XR chest 2V Accession Number(s): [id number] cc: Yvette Saxena MD; Lokesh Atwood Reason for Exam: pain EXAMINATION: XR CHEST CLINICAL INFORMATION: pain COMPARISON: May 27, 2024 TECHNIQUE: 2 views of the chest were obtained. FINDINGS: There are increased contrast densities the right lung compared to the prior. There are also increased interstitial markings. There is no focal opacity in the medial left lung base. No pleural effusion is identified on the lateral view. XR/XR chest 2V IMPRESSION: Suspected early pneumonia in the right lung versus early pulmonary edema. Atelectasis versus pneumonia in the medial left lung base. Electronically signed by: Jaskaran Calabrese MD 11/17/2024 05:01 PM EDT RP Dictated By: Jaskaran Calabrese MD Signed By: <Electronically signed by Jaskaran Calabrese MD in OV> 11/17/24 170 DD/ 58 TD/TT: 11/17/241654 Rocket Test Fire Worker: [facility] External Provider IMG XR PROCEDURES Final Result documented in this encounter Visit Diagnoses Not on filedocumented in this encounter Additional Health Concerns Assessment Noted Time PHQ-9 Depression Total Score: 8 10/07/19 24 11:07 AM EDT documented as of this encounter Care Teams Scrubber Machine Tender Relationship Specialty Start Date End Date Yvette Saxena MD [address] [place] [address] PCP - General Internal Medicine 04/24/22 Pretty Gray, Augusto [address] [place] [address] Pharmacist Internal Medicine 06/23/23 documented as of this encounter
--- OUTSIDE RECORDS SUMMARY | 2024-11-17 19:06 | XMS_ITS | Encounter Summary ---
Author Organization [employer] Address [address] [facility] 7t [place] [address] Care Team Providers Care Dispatch Associate Name Role Phone Yvette Saxena MD Primary Care Provide r Pretty Gray PharmD Unavailable [phone] Encounter Details Date Type Department Care Team (Late st Contact Info) Description 05/18/2024 Orders Only [facility] MEDICINE [address] [place], [place] [phone] Yvette Saxena MD [address] [place], [place] [phone] Social History Tobacco Use Types Packs/Day Years [...] Info) Description 12/15/2024 11:00 AM EDT Telemedicine [facility] [address] [place] [phone] Tatyana Mann, PAM documented as of this encounter Goals Goal Patient Goal Type Associated Problems Recent Progress Patient-Stated? Author Blood Pressure < 140/90 Blood Pressure 132/74(2024 9:06 AM EDT) No Piers-Kamilla Marquezsa, PharmD Hemoglobin A1c < 7.5 Result Component 5.7( 9:08 AM EDT) No Piers-Gambl ravi, Pretty, PharmD documented as of this encounter Procedures Procedure Name Priority Date/Time Associated Diagnosis Comments XR CHEST 1 VIEW Routine 05/27/2024 10:05 PM EDT documented in this encounter Results * XR Chest 1 View (05/27/2024 10:05 PM EDT) Anatomical Region Laterality Modality Chest Radiographic Ileana ging 05/27/2024 10:0 5 PM EDT Narrative 05/27/2024 10:07 PM EDT [address] [address] XRay Report Signed Patient: Jose Burch MR#: [id number] 6 : 1950 Acct:[id number] Age/Sex: 73 / M ADM Date: 05/27/24 Loc: HO.ED Attending Dr: Ordering Physician: Oskar Maurice MD Date of Service: 05/27/24 Procedure(s): XR chest 1V Accession Number(s): [id number] cc: Yvette Saxena MD; Oskar Maurice MD CLINICAL HISTORY: cp 1 view chest x-ray Comparison: Chest x-ray from 02/18/2022 Findings: No consolidation, pneumothorax or pleural effusion. Mild right basilar atelectasis and/or pneumonitis. Mild emphysematous changes are redemonstrated. Cardiac silhouette and mediastinal contours accentuated by AP technique. Degenerative changes include imaged shoulders and AC joints. IMPRESSION: 1. No consolidation. 2. Mild right basilar atelectasis. This document has been electronically signed by: Nam Sheffield MD on 05/27/2024 22:05:30 Dictated By: Nam Sheffield MD Signed By: <Electronically signed by Nam Sheffield MD in OV> 05/27/242205 DD/ 04 TD/TT: 05/27/242204 Field Clerk: Procedure Note Donotuseinterpreter, Image - 05/27/[address] [address] XRay Report Signed Patient: Jose BurchMR#: [id number] 6 : 1950cct:[id number] Age/Sex: 73 / MADM Date: 05/27/24 Loc: .ED Attending Dr: Ordering Physician: Oskar Maurice MD Date of Service: 05/27/24 Procedure(s): XR chest 1V Accession Number(s): [id number] cc: Yvette Saxena MD; Oskar Maurice MD CLINICAL HISTORY: cp 1 view chest x-ray Comparison: Chest x-ray from 02/18/2022 Findings: No consolidation, pneumothorax or pleural effusion. Mild right basilar atelectasis and/or pneumonitis. Mild emphysematous changes are redemonstrated. Cardiac silhouette and mediastinal contours accentuated by AP technique. Degenerative changes include imaged shoulders and AC joints. IMPRESSION: 1. No consolidation. 2. Mild right basilar atelectasis. This document has been electronically signed by: Nam Sheffield MD on 05/27/2024 22:05:30 Dictated By: Nam Sheffield MD Signed By: <Electronically signed by Nam Sheffield MD in OV> 05/27/242205 DD/ 04 TD/TT: 05/27/242204 Field Clerk: [facility] External Provider IMG XR PROCEDURES Edited Result - Final documented in this encounter Visit Diagnoses Not on filedocumented in this encounter Additional Health Concerns Assessment Noted Time PHQ-9 Depression Total Score: 8 10/07/19 24 11:07 AM EDT documented as of this encounter Care Teams Dispatch Associate Relationship Specialty Start Date End Date Yvette Saxena MD [address] [place] [address] PCP - General Internal Medicine 04/24/22 Pretty Gray, GilmaD [address] [place] [address] Pharmacist Internal Medicine 06/23/23 documented as of this encounter
--- OUTSIDE RECORDS SUMMARY | 2024-11-17 19:06 | XMS_ITS | Clinical Summary ---
Author Organization [employer] Address [address] [facility] [address] [facility] [address] [place] [address] Care Team Providers Care Try On Baster Name Role Phone Yvette Saxena MD Primary Care Provide r Pretty Gray PharmD Unavailable [phone] Allergies Active Allergy Reactions Criticality Noted Date Comments Shellfish Allergy 01/07/2024 Medications TRUEplus Lancets 33G misc TEST BLOOD SUGAR TWICE DAILY 100 each 11 023 Active TRUEplus Insulin Syringe 31G X 07/07 0.5 ML misc USE ONCE DAILY FOR INSULIN INJECTION 50 each 5 024 Active Alcohol Swabs (Easy Touch Alcohol Prep Medium) 70 % pads USE 1 EVERY DAY 100 each 5 024 Active Blood Pressure kitIndications: Essential hypertension 1 kit Once per day. Use as directed to monitor blood pressure 1 kit Active Continuous Glucose Tire Balancer (FreeStyle Bogdan 2 [place]) device Scan sensor every 8 hours 1 each Active Continuous Glucose Sensor (FreeStyle Bogdan 2 Sensor) misc Apply 1 sensor every 14 days 2 each Active Neomycin-Polymy mónica-HC 1 % solutionIndicat ions:Chronic otitis externa of left ear, unspecified type Administer 3 drops into affected ear(s) 4 times daily. 10 mL 024 Active Aspirin Low Dose 81 MG EC tablet TAKE 1 TABLET BY MOUTH EVERY MORNING 90 tablet 1 024 Active meloxicam (Mobic) 15 MG tablet TAKE 1 TABLET BY MOUTH EVERY MORNING 30 tablet 6 024 Active metFORMIN (Glucophage) 1000 MG tabletIndicatio ns:Type 2 diabetes mellitus with diabetic neuropathy, with long-term current use of insulin (CMS/HCC) TAKE 1 TABLET BY MOUTH TWICE DAILY IN THE MORNING AND IN THE EVENING WITH MEALS 180 tablet 3 Active atorvastatin (Lipitor) 40 MG tabletIndicatio ns:Type 2 diabetes mellitus with diabetic neuropathy, with long-term current use of insulin (CMS/HCC) Take 1 tablet (40 mg) by mouth Once per day. 30 tablet 11 025 2025 Active pen needle 33G x 4 mm miscIndications :Type 2 diabetes mellitus with diabetic neuropathy, with long-term current use of insulin ([facility]/HCC) Use as instructed once daily 100 each 6 025 2025 Active glucose blood (FREESTYLE LITE) test stripIndication s:Type 2 diabetes mellitus with diabetic neuropathy, with long-term current use of insulin (CMS/HCC) Test blood sugar twice daily 100 strip Active insulin glargine (Toujeo SoloStar) 300 UNIT/ML injectionIndica tions:Type 2 diabetes mellitus with diabetic neuropathy, with long-term current use of insulin ([facility]) Inject 10 units subcutaneously once daily 4.5 mL 3 Active glucose (Glutose) 40 % gel oral gelIndications: Type 2 diabetes mellitus with diabetic neuropathy, with long-term current use of insulin (CMS/HCC) Use as needed for low blood sugar 45 g 11 Active ammonium lactate (Lac-Hydrin) 12 % lotionIndicatio ns:Dry skin dermatitis APPLY TO THE AFFECTED AREA(S) TOPICALLY NEEDED FOR DRY SKIN 225 g 025 Active Trulicity 0.75 MG/0.5ML solution auto-injector INJECT ONE PEN (=0.75MG) SUBCUTANEOUSLY ONCE A WEEK DIRECTED 025 Active Clotrimazole Anti-Fungal 1 % creamIndication s:Pityriasis rosea APPLY TOPICALLY TO THE AFFECTED AREA(S) TWICE DAILY DIRECTED FOR 28 DAYS 90 g 2 025 Active ferrous sulfate 325 (65 Fe) MG EC tabletIndicatio ns:Anemia, unspecified type TAKE 1 TABLET BY MOUTH EVERY DAY IN THE MORNING 90 tablet 1 025 Active melatonin 5 MG tabletIndicatio ns:Other insomnia TAKE 1 TABLET BY MOUTH AT BEDTIME 90 tablet 1 025 Active lisinopril 40 MG tablet TAKE 1 TABLET BY MOUTH EVERY DAY AT NOON 90 tablet 1 025 Active cyanocobalamin (Vitamin B-12) 1000 MCG tabletIndicatio ns:Vitamin B12 deficiency TAKE 1 TABLET BY MOUTH EVERY DAY IN THE MORNING 90 tablet 1 025 Active amLODIPine (Norvasc) 10 MG tabletIndicatio ns:Essential hypertension TAKE 1 TABLET BY MOUTH EVERY DAY 90 tablet 1 025 Active acetaminophen (Tylenol 8 Hour) 650 MG ER tabletIndicatio ns:Arthralgia of both knees TAKE 2 TABLETS BY MOUTH EVERY 8 HOURS NEEDED FOR MILD PAIN 60 tablet 2 025 Active ketoconazole (NIZOral) 2 % shampooIndicati ons:Pityriasis rosea APPLY TO SCALP AND LEAVE ON FOR 5 MINUTES THEN RINSE OFF TWICE A WEEK 120 mL 2 025 Active lidocaine (Lidoderm) 5 % patchIndication s:Arthralgia of both knees APPLY 1 PATCH TOPICALLY TO SKIN, LEAVE ON FOR 12 HOURS AND OFF FOR 12 HOURS DIRECTED 30 patch 2 025 Active aluminum-magnes ium hydroxide-simet hicone (Maalox) 200-200-20 MG/5ML suspensionIndic ations:Gastroes ophageal reflux disease with esophagitis, unspecified whether hemorrhage,Uppe r abdominal pain Take 30 mL by mouth before breakfast, before lunch, before evening meal, and at bedtime. 1680 mL 1 025 Active omeprazole (PriLOSEC) [address] capsuleIndicati ons:Gastroesoph ageal reflux disease with esophagitis, unspecified whether hemorrhage Take 1 capsule (20 mg) by mouth before breakfast. Do not crush or chew. 90 capsule 1 025 Active traMADol (Ultram) 50 MG tabletIndicatio ns:Arthralgia of both knees Take 1 tablet (50 mg) by mouth every 8 (eight) hours if needed for severe pain. 84 tablet 025 Active traMADol (Ultram) 50 MG tabletIndicatio ns:Arthralgia of both knees TAKE 1 TABLET BY MOUTH EVERY 8 HOURS NEEDED FOR SEVERE PAIN 84 tablet 025 2024 Discontinued(R eorder (will not trigger notification to Pharmacy)) Active Problems Problem Noted Date Diagnosed Date Pre-op exam 08/31/2024 Assessment & Plan (08/31/2024 11:30 AM EDT): RCRI score is 0 which means he has 0.5% of risk Surgery should proceed as scheduled n.p.o. 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 04/22 Other insomnia 01/07/2024 Assessment & Plan (01/11/2024 10:38 AM EST): Sleep hygiene counseling done I will start patient on melatonin Dry skin dermatitis 01/07/2024 Cataract 10/07/2023 Clogged ear, right 10/07/2023 Chronic otitis externa of left ear 10/07/2023 Gastroesophageal reflux disease with esophagitis 03/12/2023 Assessment & Plan (08/31/2024 11:28 AM EDT): I advise patient to avoid NSAIDs, spicy and acid food, I advise to eat at the same time every day, I advise to elevate the head of the bed and take medications as prescribe Iron (Fe) deficiency anemia 03/12/2023 Assessment & Plan (03/12/2023 3:16 PM EST): Patient did not like his experience on [facility] GI office I will refer him to [...] to nurse visit if BP ot at [facility] plan is to increase amlodipine to 10mg [...] use of insulin 02/22/2003 Assessment & Plan (08/31/2024 11:28 AM EDT): Diabetes is: controlled - Lab Results Component Value Date HGBA1C 5.7 08/31/2024 HGBA1C 6.3 (A) 12/24/2023 HGBA1C 6.1 (A) 10/07/2023 - Lab Results Component Value Date MICROALBUR 30.0 01/04/2024 CREATININE 0.85 12/24/2023 -Changes: none - Diabetic eye exam:up to date - Diabetic foot exam:pending - Continue lifestyle modifications - Continue current medications - Follow up: 3 months Assessment & Plan (01/11/2024 10:39 AM EST): [...] in 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 I instructed to go down on his lantus at nigh from 14U to 12U and not to skip any meal, continue with rest of medication regimen Hyperlipidemia 02/23/2000 Resolved Problems Problem Noted Date Diagnosed Date Resolved Date Otitis externa 02/17/2022 04/24/2022 Encounters Date Type Department Care Team Description 11/17/2024 Orders Only [facility] External Provider, [facility] 11/06/2024 Refill [facility] PEDS [address] [place] [address] Yvette Saxena MD Arthralgia of both knees 10/20/2024 Refill [facility] MEDICINE [address] [place] [address] Yvette Saxena MD Arthralgia of both knees 10/10/2024 9:30 AM EDT Telemedicine [facility] MEDICINE [address] [place] [address] Tatyana Mann RN long term care social worker (current) use of opiate analgesic 10/10/2024 Travel 10/05/2024 Refill [facility] [address] [place] [address] Yvette Saxena MD Arthralgia of both knees 09/29/2024 Telephone [facility] MEDICINE [address] [place] [address] Tatyana Mann, PAM Pt not home for Tele appt today 09/29/2024 Travel 09/05/2024 Refill [facility] PEDS [address] [place] [address] Yvette Saxena MD Arthralgia of both knees 08/31/2024 9:30 AM EDT Office Visit [facility] MEDICINE [address] [place] [phone] Yvette Saxena MD Gastroesophageal reflux disease with esophagitis, unspecified whether hemorrhage (Primary Dx); Type 2 diabetes mellitus with diabetic neuropathy, with long-term current use of insulin ([facility]); Upper abdominal pain; Pre-op exam; Dietary counseling; Exercise counseling; Overweight 08/31/2024 Travel 08/30/2024 Telephone [facility] MEDICINE [address] [place] [phone] Yvette Saxena MD FYI 08/30/2024 Telephone [facility] MEDICINE [address] [place] [phone] Yvette Saxena MD Chart Prep 08/30/2024 Refill [facility] [address] [place] [address] Yvette Saxena MD Arthralgia of both knees from Last 3 Months Immunizations Immunization Administration Dates Next Due Influenza injectable quadriv [...] Sign Reading Time Taken Comments Blood Pressure 132/74 08/31/2024 9:06 AM EDT Pulse 75 08/31/2024 9:06 AM EDT Temperature 36.1 C (97 F) 08/31/2024 9:06 AM EDT Respiratory Rate 16 08/31/2024 9:06 AM EDT Oxygen Saturation 98% 08/31/2024 9:06 AM EDT Inhaled Oxygen Concentration - - Weight 80.4 kg (177 lb 3.2 oz) 08/31/2024 9:06 A M EDT Height 170.2 cm (5' 7 ) 08/31/2024 9:06 AM EDT Body Mass Index 27.75 08/31/2024 9:06 AM EDT Plan of Treatment Upcoming Encounters Date Type Department Care Team (Late st Contact Info) Description 12/15/2024 11:00 AM EDT Telemedicine [facility] MEDICINE [address] [place] [address] Tatyana Mann, RN Health Maintenance Due Date Last Done Comments Diabetes: Foot Exam 1958 Alcohol/Substance Use Screening 1962 Zoster Vaccines (3 of 3) 09/01/2023 07/07/2023, 02/22 Depression Screening 10/06/2024 10/07/2023, 10/07/19 24 COVID-19 Vaccine ( season) 2024 12/24/2023, 03/12/2023, 04/24/2022, Additional history exists Influenza Vaccine (#1) 2024 , 03/12/2023, 04/24/2022, Additional history exists Lipid Panel 12/23/2024 12/24/2023, 05/23, 06/17/2020 Diabetes: Urine Protein Screening 01/03/2025 01/04/2024, 06/09/2022, 06/17/2020 Diabetes: Hemoglobin A1C 03/03/2025 025, 12/24/2023, 10/07/2023, Additional history exists SDOH Screening 03/30/2025 03/30/2024 Eye Exam 05/03/2025 05/03/2024, 04/22, 05/03/2024, Additional history exists Tobacco Screening 08/31/2025 08/31/2024 DTaP/Tdap/Td Vaccines (3 - Td or Tdap) 08/19/2032 08/19/2022, 03/07/2012, 01/01/2006 Colonoscopy Discontinued 05/25/2017 Colorectal Cancer Screening Discontinued Pneumococcal Vaccine: 50+ Years Completed 05/28/2022, 07/16/2003 Hepatitis C Screening Completed 08/26/2022 RSV Patients and Patients Aged 60 years or older Completed 07/07/2023 CT Colonography Discontinued FIT DNA/Cologuard Discontinued FIT Discontinued FOBT Discontinued HIB Vaccines Aged Out No longer eligi [...] patient's age to complete this topic Meningococcal B Vaccine Aged Out No l onger eligible based on patient's age to complete this topic Meningococcal Vaccine Aged Out No alesia da eligible based on patient's age to complete this topic RSV under 20 months Aged Out No longe r eligible based on patient's age to complete this topic Rotavirus Vaccines Aged Out No longer eligible based on patient's age to complete this topic Sigmoidoscopy Discontinued Goals Goal Patient Goal Type Associated Problems Recent Progress Patient-Stated? Author Blood Pressure < 140/90 Blood Pressure 132/74(2024 9:06 AM EDT) No Pretty Hearn PharmD Hemoglobin A1c < 7.5 Result Component 5.7( 9:08 AM EDT) No Pretty Hearn PharmD Procedures Procedure Name Priority Date/Time Associated Diagnosis Comments HIGH SENSITIVITY TROPONIN I Routine 11/17/2024 5:16 PM EDT COVID-19 ID NOW ([facility]) Routine 11/17/2024 5:16 PM EDT COMPREHENSIVE METABOLIC PANEL Routine 11/17/2024 5:16 PM EDT CBC WITH AUTO DIFFERENTIAL Routine 11/17/2024 5:16 PM EDT INFLUENZA A B2 ID NOW ([facility]) Routine 11/17/2024 5:16 PM EDT XR CHEST 2 VIEWS Routine 11/17/2024 4:59 PM EDT POCT GLYCATED HEMOGLOBIN, TOTAL Routine 08/31/2024 9:08 AM EDT Type 2 diabetes mellitus with diabetic neuropathy, with long-term current use of insulin ([facility]) POCT GLUCOSE Routine 08/31/2024 9:07 AM EDT Type 2 diabetes mellitus with diabetic neuropathy, with long-term current use of insulin ([facility]) ALBUMIN, RANDOM URINE W/CREATININE Routine 01/04/2024 9:15 AM EST Type 2 diabetes mellitus with diabetic neuropathy, with long-term current use of insulin ([facility]) LIPID PANEL, STANDARD Routine 12/24/2023 2:30 PM EDT HEPATITIS C ANTIBODY Routine 08/26/2022 2:49 PM EDT HM COLONOSCOPY Routine 05/25/2017 from Last 3 Months or Most Recently Relevant to Health Maintenance Results * Influenza A B2 ID NOW ([facility]) (11/17/2024 5:16 PM EDT) IDNOW SERIAL# [id number] [facility] Influenza A Negative Negative [facility] Influenza B2 Negative Negative [facility] Influenza A B2 Note See Note [facility] Comment:The Moreira ID NOW In [...] LAB MICROBIOLOGY - GENERAL ORDERABLES Final Result [facility] [address] [place] [phone] * (ABNORMAL) COVID-19 ID NOW ([facility]) (11/17/2024 5:16 PM EDT) IDNOW SERIAL# [id number] [facility] COVID-19 TEST Positive (A) Negative [facility] COVID-19 NOTE See Note [facility] Comment: Results are for the identification of SARS-CoV2 RNA. TheSARS-CoV2 RNA is generally detectable in respiratory samplesduring the acute phase of infection. Positive results areindicative of the presence of SARS-CoV-2 RNA; clinicalcorrelation with patient history and other diagnosticinformation is necessary to determine patient infectionstatus. Positive results do not rule out bacterial infectionor co- infection with other viruses.Testing facilities within the [facility] and itsterritories are required to report all positive results [...] 5:16 PM EDT 11/17/2024 5:27 PM EDT Generic External Data Provider LAB MOLECULAR RADHA GNOSTICS ORDERABLES Final Result Performing Organization Address City/[facility]/ZIP Co de Phone Number [facility] [address] [place] [address] [phone] * (ABNORMAL) High Sensitivity Troponin I (11/17/2024 5:16 PM EDT) [facility] TROPONIN I HIGH SENSITIVITY 5,718.1(H H) <3.5 - 35.0 ng/L [facility] Comment:Critical value for t est(s): TROP Results called to yoandy back by: MADHAVI Person calling: OLIChay Date:11.17.24 Time: [facility] high sensitivity Troponin-I results should beused in conjunction with other diagnostic information suchas ECG, clinical observations and information, and patientsymptoms to aid in the diagnosis of [place]. 11/17/2024 5:16 PM EDT 11/17/2024 5:27 PM EDT Generic External Data Provider LAB BLOOD ORDERAB LES Final Result Performing Organization Address City/[facility]/ZIP Co de Phone Number [facility] [address] [place] [address] [phone] * (ABNORMAL) CBC auto differential (11/17/2024 5:16 PM EDT) White Blood Count 7.7 4.8 - 10.8 X10*3/uL [facility] Red Blood Count 3.74(L) 4.60 - 5.80 X10*6/uL [facility] Hemoglobin 10.7(L) 14.0 - 18.0 g/dl [facility] Hematocrit 32.5(L) 42.0 - 52.0 % [facility] Mean Corpuscular Volume 86.9 80.0 - 98.0 fL [facility] Mean Corpuscular Hemoglobin 28.6 27.0 - 33.0 pg [facility] Mean Corpuscular HGB Conc 32.9 31.0 - 36.0 g/dl [facility] Red Cell Distribution Width 12.5 11.0 - 16.0 % [facility] Platelet Count 245 160 - 400 X10*3/uL [facility] Mean Platelet Volume 10.3 9.4 - 12.4 fL [facility] Neutrophils Percent Auto 53.2 45 - 73 % [facility] Imm Gran Pct Auto 0.4 0.0 - 0.4 % [facility] Lymphocytes Percent Auto 32.2 20 - 40 % [facility] Monocytes Percent Auto 11.4(H) 2 - 11 % [facility] Eosinophils Percent Auto 2.3 0 - 4 % [facility] Basophils Percent Auto 0.5 0 - 2 % [facility] NRBC Pct Auto 0.0 0.0 - 0.2 /100WBC [facility] Neutrophils Absolute Auto 4.1 2.0 - 8.3 x10*3/uL [facility] Imm Gran Abs Auto 0.03 0.00 - 0.03 X10*3/uL [facility] Lymphocytes Absolute Auto 2.5 1.2 - 4.9 X10*3/uL [facility] Monocytes Absolute Auto 0.9 0.1 - 1.2 X10*3/uL [facility] Eosinophils Absolute Auto 0.2 0.0 - 0.4 X10*3/uL [facility] Basophils Absolute Auto 0.0 0.0 - 0.2 X10*3/uL [facility] NRBC Abs Auto 0.000 0.0 - 0.012 X10*3/uL [facility] 11/17/2024 5:16 PM EDT 11/17/2024 5:27 PM EDT us Generic External Data Provider LAB BLOOD ORDERAB LES Final Result [facility] [address] [place], [place] [phone] * (ABNORMAL) Comprehensive Metabolic Panel (11/17/2024 5:16 PM EDT) Sodium 139 135 - 145 mmol/L [facility] Potassium 4.5 3.3 - 5.1 mmol/L [facility] Chloride 110(H) 96 - 108 mmol/L [facility] Carbon Dioxide 22 22 - 29 mmol/L [facility] Anion Gap 12 12 - 20 [facility] Urea Nitrogen (BUN) 21(H) 9 - 16 mg/dL [facility] Creatinine, Serum 1.49(H) 0.5 - 1.4 mg/dL [facility] Creatinine Clr Calc Pharmacy 43.2 [facility] Comment:eGFR (calculated fro m the MDRD study equation) and eCrCl(calculated from the Cockcroft-Gault equation) are based ondifferent parameters and may not yield comparable results.If eCrCl result is absurd, please check patient'sheight/weight. Estimated Glomerular Filt Rate 46 [facility] Comment:Chronic Kidney Disea se: Estimated GFR < 60 mL/min/1.72d9Eukylj Kidney Disease: Estimated GFR < 15 mL/min/1.73m2 Glucose 95 60 - 115 mg/dL [facility] Calcium 9.0 8.4 - 10.2 mg/dL [facility] Bilirubin, Total 0.3 0.0 - 1.0 mg/dL [facility] Aspartate Amino Transferase 43(H) 5 - 37 U/L [facility] Alanine Aminotransferase 12 0 - 40 U/L [facility] Total Protein 7.4 6.5 - 8.0 g/dL [facility] Albumin Level 3.9 3.5 - 5.0 g/dL [facility] Alkaline Phosphatase 70 39 - 117 U/L [facility] 11/17/2024 5:16 PM EDT 11/17/2024 5:27 PM EDT us Generic External Data Provider LAB BLOOD ORDERAB LES Final Result [facility] [address] [place] [phone] * XR Chest 2 Views (11/17/2024 4:59 PM EDT) Anatomical Region Laterality Modality Chest Radiographic Ileana ging 11/17/2024 4:59 PM EDT Narrative 11/17/2024 5:04 PM EDT [address] [address] XRay Report Signed Patient: Jose Burch MR#: [id number] 6 : 1950 Acct:[id number] Age/Sex: 74 / M ADM Date: 11/17/24 Loc: HO.ED Attending Dr: Ordering Physician: Lokesh Atwood Date of Service: 11/17/24 Procedure(s): XR chest 2V Accession Number(s): [id number] cc: Yvette Saxena MD; Lokesh Atwood Reason [...] Jaskaran Calabrese MD 11/17/2024 05:01 PM EDT Dictated By: Jaskaran Calabrese MD Signed By: <Electronically signed by Jaskaran Calabrese MD in OV> 11/17/24 1701 DD/ 165 TD/TT: 11/17/241654 Compressor Station Chief Engineer: Procedure Note Donotuseinterpreter, Image - 11/17/[address] [address] XRay Report Signed Patient: Jose BurchMR#: [id number] 6 : 9Acct:[id number] Age/Sex: 74 / MADM Date: 11/17/24 Loc: HO.ED Attending Dr: Ordering Physician: Lokesh Atwood Date of Service: 11/17/24 Procedure(s): XR chest 2V Accession Number(s): [id number] cc: Yvette Saxena MD; Lokesh Atwood Reason [...] Jaskaran Calabrese MD 11/17/2024 05:01 PM EDT Dictated By: Jaskaran Calabrese MD Signed By: <Electronically signed by Jaskaran Calabrese MD in OV> 11/17/24 1701 DD/ 1659 TD/TT: 11/17/24 1655 Compressor Station Chief Engineer: [facility] External Provider IMG XR PROCEDURES Final Result * POCT HGB A1C (08/31/2024 9:08 AM EDT) Hemoglobin A1C 5.7 4.0 - 5.7 % QC Media Lot # [id number] Lot# Expiration Date Blood 08/31/2024 9:08 AM EDT Yvette Arizmendi MD POINT OF CARE TEST EN TER/EDIT ORDERABLES Final Result * POCT Glucose (08/31/2024 9:07 AM EDT) Glucose Blood, POC 144 60 - 200 mg/dL Comment:erlin WEINER Media Lot # [id number] Lot# Expiration Date Blood Capillary blood specimen / Unknown 08/31/2024 9:07 AM EDT Yvette Arizmendi MD POINT OF CARE TEST EN TER/EDIT ORDERABLES Final Result * (ABNORMAL) Albumin, Random Urine W/Creatinine (01/04/2024 9:15 AM EST) Creatinine, Urine 38.76 mg/dL [facility] Microalbumin Urine 30.0 mg/L [facility] Microalbum Creatinine Ratio Ur 77.3(H) <30 ug/mg cr [facility] Comment:Albumin/Creatinine R [facility] Reference Ranges: Normal: < 30 ug/mg creatinine Microalbuminuria: 30 - 300 ug/mg creatinineClinical Albuminuria: > 300 ug/mg creatinine Urine (Urine, Random) 01/04/2024 9:15 AM EST 01/04/2024 11:27 AM EST us Yvette Arizmendi MD LAB URINE ORDERABLES Final Result [facility] [address] [place] [phone] * (ABNORMAL) Lipid Panel, Standard (12/24/2023 2:30 PM EDT) Triglycerides 93 <150 mg/dL [facility] Comment:Desirable Triglyceri de: less than 150 mg/dLBorderline High Triglyceride 150-199 mg/dLHigh Triglyceride: 200-499 mg/dLVery High Triglyceride: greater than or equal to 5OO mg/dL Cholesterol 154 <200 mg/dL [facility] Comment:Desirable Cholestero l: less than 200 mg/dLBorderline High Cholesterol: 200-239 mg/dLHigh Cholesterol: greater than 239 mg/dL LDL Cholesterol Calculated 98 <100 mg/dL [facility] Comment:Desirable LDL: less than 100 mg/dLNear Optimal/Above Optimal LDL: 110- 129 mg/dLBorderline High LDL: 130-159 mg/dLHigh LDL: 160-189 mg/dLVery High LDL: greater than or equal to 190 mg/dL HDL Cholesterol 38(L) >40 mg/dL [facility] Comment:Desirable HDL: great er than 40 mg/dL Note: This HDL assay may give artificially low results in patients with liver disease. 12/24/2023 2:30 PM EDT 12/24/2023 4:32 PM EDT Yvette Arizmendi MD LAB BLOOD ORDERABLES Final Result Performing Organization Address [facility] Co de Phone Number [facility] [address] [place] [phone] * Hepatitis C Ab (08/26/2022 2:49 PM EDT) Hepatitis C Antibody Nonreactive Nonreactive [facility] Comment:Antibodies to HCV no t detected; does not exclude early acuteHCV infection. 08/26/2022 2:49 PM EDT 08/26/2022 2:49 PM EDT [facility] External Provider LAB BLO OD ORDERABLES Final Result Performing Organization Address [facility]/ZIP Co de Phone Number [facility] [address] [place] [address] [phone] * Hm Colonoscopy (05/25/2017) Colonoscopy Normal Colonoscopy repeat in 10 years Historical Fanta PEREZ HEALTH MAINTENANCE Final Result from Last 3 Months or Most Recently Relevant to Health Maintenance Insurance [facility] Care Teams Try On Baster Relationship Specialty Start Date End Date Yvette Saxena MD [address], [place] PCP - General Internal Medicine 04/24/22 Pretty Gray PharmD [address], [place] Pharmacist Internal Medicine 06/23/23
--- OUTSIDE RECORDS SUMMARY | 2024-11-17 19:06 | XMS_ITS | Encounter Summary ---
Author Organization [email or web address] Address [address] [facility] 7t [place] [address] Care Team Providers Care Propellant Charge Loader Name Role Phone Yvette Saxena MD Primary Care Provide r Pretty Gray PharmD Unavailable [phone] Reason for Visit * Reason Comments Med Refill Encounter Details Date Type Department Care Team (Late st Contact Info) Description 09/26/2022 Refill [facility] [address] [place], [place] [phone] Johnathan Sánchez MD [address] [place] [address] Social History Tobacco Use Types Packs/Day Years [...] Info) Description 12/15/2024 11:00 AM EDT Telemedicine [facility] [address] [place] [address] Tatyana Mann, PAM documented as of this encounter Visit Diagnoses Not on filedocumented in this encounter Additional Health Concerns Assessment Noted Time PHQ-9 Depression Total Score: 0 04/25/19 11:43 AM EST documented as of this encounter Care Teams Propellant Charge Loader Relationship Specialty Start Date End Date Yvette Saxena MD [address] [place] [id number] PCP - General Internal Medicine 04/24/22 Pretty Gray, GilmaD [address] [place] [phone] Pharmacist Internal Medicine 06/23/23 documented as of this encounter
--- OUTSIDE RECORDS SUMMARY | 2024-11-17 19:06 | XMS_ITS | Encounter Summary ---
Author Organization [employer] Address [address] [facility] 7t [place] [address] Care Team Providers Care Chief Innovation Officer Name Role Phone Yvette Saxena MD Primary Care Provide r Pretty Gray PharmD Unavailable [phone] Reason for Visit * Reason Comments Med Refill Encounter Details Date Type Department Care Team (Late st Contact Info) Description 05/27/2022 Refill [facility] [address] [place] [address] Patricia Hickman MD [address] [place] [address] Arthralgia of both knees Social History Tobacco [...] Info) Description 12/15/2024 11:00 AM EDT Telemedicine [facility] MEDICINE [address] [place] [address] Tatyana Mann, PAM documented as of this encounter Visit Diagnoses Diagnosis Arthralgia of both knees documented in this encounter Additional Health Concerns Assessment Noted Time PHQ-9 Depression Total Score: 0 04/25/19 23 11:43 AM EST documented as of this encounter Care Teams Chief Innovation Officer Relationship Specialty Start Date End Date Yvette Saxena MD [address] [place] [phone] PCP - General Internal Medicine 04/24/22 Pretty Gray, Augusto [address] [place] [phone] Pharmacist Internal Medicine 06/23/23 documented as of this encounter
--- OUTSIDE RECORDS SUMMARY | 2024-11-17 19:06 | XMS_ITS | Encounter Summary ---
Author Organization [email or web address] Address [address] [facility] 7t [place] [address] Care Team Providers Care Exceptional Student Education Aide Name Role Phone Yvette Saxena MD Primary Care Provide r Pretty Gray PharmD Unavailable [phone] Reason for Visit * Reason Comments Med Refill Encounter Details Date Type Department Care Team (Late st Contact Info) Description 11/18/2022 Refill [facility] [address] [place] [address] Sharee Crowe DO [address] [place], [place] [phone] Type 2 diabetes mellitus with diabetic neuropathy, with long-term current use of insulin ([facility]) Social History Tobacco Use Types Packs/Day [...] Department Care Team (Late Contact Info) Description 12/15/2024 11:00 AM EDT Telemedicine [facility] [address] [place] [address] Tatyana Mann, RN documented as of this encounter Visit Diagnoses Diagnosis Type 2 diabetes mellitus with diabetic neuropathy, with long-term current use of insulin ([facility]) documented in this encounter Additional Health Concerns Assessment Noted Time PHQ-9 Depression Total Score: 0 04/25/19 23 11:43 AM EST documented as of this encounter Care Teams Exceptional Student Education Aide Relationship Specialty Start Date End Date Yvette Saxena MD [address] [place] [id number] PCP - General Internal Medicine 04/24/22 Pretty Gray, Augusto [address] [place] [phone] Pharmacist Internal Medicine 06/23/23 documented as of this encounter
--- OUTSIDE RECORDS SUMMARY | 2024-11-17 19:06 | XMS_ITS | Encounter Summary ---
Author Organization [employer] Address [address] [facility] [address]t [place] [address] Care Team Providers Care What Job Titles Mean Name Role Phone Yvette Saxena MD Primary Care Provide r Pretty Gray PharmD Unavailable [phone] Reason for Visit * Reason Comments Med Refill Encounter Details Date Type Department Care Team (Late st Contact Info) Description 07/19/2023 Refill [facility] [address] [place], [place] [phone] Yvette Saxena MD [address] [place], [place] [phone] Type 2 diabetes mellitus with diabetic neuropathy, with long-term current use of insulin ([facility]) Social History Tobacco Use Types [...] Info) Description 12/15/2024 11:00 AM EDT Telemedicine [facility] [address] [place] [address] Tatyana Mann RN documented as of this [...] neuropathy, with long-term current use of insulin ([facility]) documented in this encounter Additional Health Concerns Assessment Noted Time PHQ-9 Depression Total Score: 0 04/25/19 11:43 AM EST documented as of this encounter Care Teams What Job Titles Mean Relationship Specialty Start Date End Date Yvette Saxena MD [address] [place] [phone] PCP - General Internal Medicine 04/24/22 Pretty Gray PharmD [address] [place] [phone] Pharmacist Internal Medicine 06/23/23 documented as of this encounter
[2024-11-17 19:21] LABS: INTERNATIONAL NORM RATIO 1.0 (0.9-1.1); Prothrombin Time 11.9 SEC (10.9-12.4)
[2024-11-17 19:23] LABS: Partial Thromboplastin Time 29.4 SEC (26.7-34.1)
[2024-11-17 19:29] VITALS: BP 124/70; PULSE 77; RESP 20; TEMP 37.2; O2SAT 99
--- NOTE | 2024-11-17 19:31 | PC.NURSE ---
this rn assumed care of pt, pt resting in stretcher, no acute distress noted. pt vss, awaiting lab draw at this time
--- NOTE | 2024-11-17 20:05 | PC.NURSE ---
report given to Julio César OROZCO at [facility].
[2024-11-17 20:12] LABS: Troponin-I High Sensitivity 6040.0 ng/L (<3.5-35.0)
[2024-11-17 20:44] VITALS: BP 124/70; PULSE 77; RESP 20; TEMP 37.2; O2SAT 99
== END 2024-11-17 20:44 | disposition short-term general hospital (02) ==
PROVIDERS: Physician Assistant; Emergency Provider Emergency Medicine Emergency Medical Services; PCP Internal Medicine
DX: I21.4 Non-ST elevation (NSTEMI) myocardial infarction (principal); E11.9 Type 2 diabetes mellitus without complications; I10 Essential (primary) hypertension; Z79.899 Other long term (current) drug therapy
CPT/HCPCS: 36415; 71046; 80053; 84484; 85025; 85610; 85730; 87502; 87635; 93005; 99284; 99285; J1644

== ENCOUNTER → 2024-11-17 16:42 | Outpatient (BNV) | payer MEDICAID, SELFPAY | PROVIDERS: PCP Internal Medicine; Visit Provider Radiology Diagnostic Radiology | DX: R07.89 Other chest pain (principal) | CPT/HCPCS: 71046 ==

== ENCOUNTER → 2024-11-17 16:42 | Outpatient (BNV) | payer MEDICAID, SELFPAY | PROVIDERS: Emergency Provider Emergency Medicine Emergency Medical Services; PCP Internal Medicine; Visit Provider Internal Medicine Cardiovascular Disease | DX: I44.0 Atrioventricular block, first degree (principal); R94.31 Abnormal electrocardiogram [ECG] [EKG]; Z13.6 Encounter for screening for cardiovascular disorders | CPT/HCPCS: 93010 ==

== ENCOUNTER → 2025-01-11 12:23 | Outpatient (REF) | payer MEDICAID, SELFPAY ==
--- NOTE | 2025-01-11 12:37 | CA_ITS ---
Transthoracic Echocardiogram Patient (Last, First, Middle): Jose Burch, Gender: Male Date of : 1950 Age: 74 Procedure Date: 01/11/2025 Procedure Type: Transthoracic Echocardiogram Location: OP Height: 170.18 cm Weight: 81.65 kg BSA: 1.93 m2 Heart Rate: bpm BP: 110 / 54 mmHg Centrifuge Operator: TO Referring MD: Yvette Arizmendi MD Symptoms: SOB WITH EXERTION. RECENT NSTEMI Study Quality: Adequate w contrast ECG Rhythm: Sinus Conclusions: - The left ventricular systolic function is severely decreased. The calculated ejection fraction is 24% by biplane method. - The inferolateral wall, the basal inferior, and mid inferior segments are akinetic. - No obvious valvular pathology seen on this study. Findings Procedure Information Contrast agent, definity, is being given per protocol without apparent complications. Left Ventricle Normal left ventricular cavity size. There is normal left ventricular wall thickness. The left ventricular systolic function is severely decreased. The calculated ejection fraction is 24% by biplane method. There is severe global hypokinesis. Diastolic function is normal for age. Wall Motion Rest Echo Findings The inferolateral wall, the basal inferior, and mid inferior segments are akinetic. Right Ventricle Mildly increased right ventricular cavity size. There is normal right ventricular systolic function. Atria The left atrium is moderately dilated. The right atrium is normal in size. Aortic Valve There is a normal trileaflet aortic valve. There is no aortic valve stenosis. There is no aortic valve regurgitation. Mitral Valve There is mild mitral annular calcification. There is mild to moderate mitral valve regurgitation. There is no mitral valve stenosis. Pulmonic Valve The pulmonic valve is likely normal. Tricuspid Valve There is mild tricuspid valve regurgitation. There is no evidence of pulmonary hypertension. Great Vessels The asc aorta is normal in size. Small plaque is seen in the sino tubular ridge. Venous The inferior vena cava is normal in size and collapses greater than 50% with inspiration. Pericardium/Pleural There is no evidence of pericardial effusion. Prior Study Comparison No prior study available for comparison. Recommendations, Care & Conclusions No obvious valvular pathology seen on this study. Measurements 2D Linear Measurements IVSd: 0.85 0.6-0.9/0.6-1.0 cm LVIDd: 5.28 3.9-5.3/4.2-5.9 cm LVIDd Index: 2.74 2.4-3.2/2.2-3.1 cm/m2 LVIDs: 4.44 2.0-3.6 cm LVPWd: 0.90 0.7-1.1 cm LA Diam: 4.40 2.7-3.8/3.0-4.0 cm LAIDs Index: 2.28 1.5-2.3 cm/m2 LV Mass: 207.16 67-162/88-224 g LV Mass Index: 107.34 43-95/49-115 g/m2 LVOT Diam: 2.20 3.0+(-)1.3 cm 2D Systolic Function EF 4C: 22.60 >55% EF 2C: 29.10 >55% EF BiP: 23.70 >55% Mitral Valve MV Pk E: 0.82 MV PK A: 0.72 MV Decel Time: 191.00 E/A: 1.10 E'Lateral: 8.92 E'Medial: 4.24 E/E' Med: 19.40 E/E' Lat: 9.20 PHT: 56.00 MVA PHT: 3.93 Decel [place]: 4.31 MR Vol - PW Dopp: 21.96 MR VTI: 1.83 MR ERO: 12.00 MR Alias Miguel: 0.39 MR RAD: 0.50 Aortic Valve AoV Pk Miguel: 1.16 AoV Mn Miguel: 0.87 AoV VTI: 0.26 AoV Pk Grad: 5.00 Aov Mn Grad: 3.00 ALONSO Cont.VTI: 2.48 LVOT LVOT Pk Miguel: 0.75 LVOT Mn Miguel: 0.52 LVOT VTI: 0.17 LVOT Pk Grad: 2.00 LVOT Mn Grad: 1.00 LVOT Diam: 2.20 LVOT Area: 3.80 Diastolic Function MV Pk E: 0.82 MV Pk A: 0.72 E/A: 1.10 E'Medial: 4.24 E/E' Med: 19.40 E' Laterial: 8.92 E/E' Lat: 9.20 Right Ventricle TAPSE (mm): 22.60 TVS' Miguel: 12.90 Tricuspid Valve TR Pk Miguel: 2.39 TR Pk Grad: 23.00 RA Press: 3.00 RVSP: 26.00 Great Vessels Aorta Sinus of Valsalva: 3.78 2.0-3.[address] Ridge: 2.65 1.7-3.4 cm Ao Asc: 3.40 2.1-3.4 cm Updated in Other Vendor System with Status of Final Caio Anderson MD electronically signed on 01/13/2025 10:46:22 AM with status of Final
== END ==
LOC: HO.CARD 12:23
PROVIDERS: PCP Internal Medicine; Visit Provider Internal Medicine
DX: Z98.890 Other specified postprocedural states (principal); R06.02 Shortness of breath; I21.4 Non-ST elevation (NSTEMI) myocardial infarction
CPT/HCPCS: 93306; Q9957

== ENCOUNTER → 2025-01-11 12:37 | Outpatient (BNV) | payer MEDICAID, SELFPAY | PROVIDERS: PCP Internal Medicine; Visit Provider Internal Medicine | DX: I51.89 Other ill-defined heart diseases (principal); I34.81 Nonrheumatic mitral (valve) annulus calcification | CPT/HCPCS: 93306 ==

== ENCOUNTER 2025-01-30 08:20 | Outpatient (AMB) | payer MEDICAID, SELFPAY ==
[2025-01-30 08:23] VITALS: BP 118/62; PULSE 89; BMI 28.7
--- NOTE | 2025-01-30 08:23 | A.OFFVIS_ITS ---
Vital Signs 01/30/25 08:23 Height 5 ft 7 in Weight 182 lb 15.739 oz BMI 28.7 BP 118/62 Blood Pressure Location Lt brachial Position Sitting Pulse 89 Pulse Source Pulse Oximeter Intake Visit Reasons: s/p cath k pt Relish Maker Required: Yes Relish Maker Language: Channel Marketing Manager Name: voice Crm Solution Architect: Crm Solution Architect Present Allergies No Known Allergies Allergy (Verified 01/30/25 08:27) Medication List - Last Reconciled 01/30/25 by LEONARDA Mitchell amlodipine 10 mg PO QAM aspirin 81 mg PO DAILY atorvastatin (Lipitor) 80 mg PO DAILY blood pressure test kit-large As directed clotrimazole 1% 1 appl topical BID dulaglutide (Trulicity) 0.75 mg subcut QWEEK ibuprofen 400 mg PO Q6H PRN insulin glargine (Lantus U-100 Insulin) 12 units subcut BID ketoconazole 2% 1 appl topical 2XW lisinopril 40 mg PO DAILY metformin 1,000 mg PO BID pantoprazole (Protonix) 40 mg PO DAILY pravastatin 40 mg PO BEDTIME sucralfate 1 g PO TID ticagrelor 90 mg PO BID tramadol 50 mg PO Q8H PRN HPI HPI s/p cath k pt: Details: The patient is a 74 year old male presenting for follow-up after a recent NSTEMI and cardiac catheterization. On 11/17/2024, he presented to the emergency room with shortness of breath, where his troponin was found to be elevated over 5,000 and an EKG showed T-wave inversions in the lateral and inferior leads, consistent with an NSTEMI. He was transferred for cardiac catheterization, which revealed multivessel coronary artery disease. Percutaneous coronary intervention was performed with a drug-eluting stent to the proximal-mid right coronary artery, and an untreated 95% stenosis was noted in the proximal circumflex artery. Following discharge, a follow-up echocardiogram on 01/11/2025 showed a reduced ejection fraction of 24% with akinetic inferior lateral, basal inferior, and mid-inferior segments. Since the procedure, he has experienced shortness of breath with movement and also when lying on his side, which requires him to sleep propped up. He denies any chest pain. His discharge medications included aspirin, Brilinta, high-dose atorvastatin, amlodipine, and lisinopril. He denies any bleeding issues. He has been doing only light activities. He was provided information for cardiac rehab at discharge but was unable to make contact with the program. His past medical history includes diabetes, hypertension, hyperlipidemia, depression and peripheral neuropathy. He does not smoke or drink alcohol. No reported family history of heart disease. Daughter present. [facility] Medical History Depression H/O renal calculi Peripheral neuropathy Hyperlipemia Diabetes Hypertension Surgical History History of esophagogastroduodenoscopy (EGD) Hx of colonoscopy History of umbilical hernia repair Family History Mother No problems noted. Father No problems noted. Social History Alcohol intake: never Patient Tobacco Use Status: Former Tobacco user Current occupational status: employed Current occupation: right handed Review of Systems Const All systems reviewed & are unremarkable except as noted in HPI and below ENT Denies dizziness Card Denies chest pain, Denies chest pain at rest, Denies chest pain with activity, Denies rapid heart rate, Denies pedal edema, Denies edema, Denies leg edema, Denies lightheadedness, Denies palpitations, Denies dyspnea, Denies dyspnea on exertion and Denies orthopnea Resp Denies cough, Denies dyspnea and Denies dyspnea on exertion GI Denies hematochezia and Denies change in stool character Musc Denies abnormal gait, Denies limited range of motion, Denies muscle cramps, Denies muscle weakness, Denies numbness, Denies radiating pain into limb, Denies stiffness and Denies tingling Neuro Denies abnormal gait, Denies dizziness, Denies numbness and Denies tingling Endo Denies palpitations Physical Exam Vital Signs: Last Vital Signs Pulse 89 01/30/25 08:23 BP 118/62 01/30/25 08:23 BMI result Body Mass Index 28.7 Const General: cooperative, healthy appearing, comfortable and no acute distress Orientation/consciousness: patient oriented x3 Neck Neck: Yes normal visual inspection Resp Effort & Inspection: normal respiratory effort Auscultation: clear to auscultation bilaterally, no crackles, no rales, no rhonchi and no wheezes Cardio Rate: regular rate Rhythm: regular rhythm Heart sounds: S1 normal heart sound present, S2 normal heart sound present, no gallops, no murmurs and no rubs Neuro General: patient oriented x3 Extrem Other: right radial cath site healed General: Yes normal to inspection, No no pedal edema and No calf tenderness Psych Appearance: grossly normal Mental Status: mental status grossly normal Speech and movement: Normal speech and movement present Assessment & Plan Assessment & Plan (1) Non-ST elevation MN (NSTEMI): Code(s): I21.4 - Non-ST elevation (NSTEMI) myocardial infarction Category: Medical Plan: NSTEMI 11/17/2024, symptom of shortness of breath. Cardiac catheterization showing proximal RCA is the culprit lesion and ALICJA placed. He has residual proximal left circumflex stenosis. No clear anginal symptoms at present. Will review with him primary insurance healthcare representative regarding management of left circumflex artery. Continue aspirin indefinitely. Continue Brilinta uninterrupted for at least 1 year. Continue high-dose atorvastatin with ideal LDL goal less than 70. Signs and symptoms of angina reviewed with him. Will order cardiac rehab. (2) S/P cardiac cath: Comment: 11/18/2024, proximal circumflex 95% stenosis, proximal RCA 70% stenosis, PCI with ALICJA to the RCA Code(s): Z98.890 - Other specified postprocedural states Category: Surgical Plan: right radial cath site well healed (3) Ischemic cardiomyopathy: Code(s): I25.5 - Ischemic cardiomyopathy Category: Medical Plan: Echocardiogram 01/11/2025 showing EF 24%, inferior lateral basal inferior and mid inferior segments akinetic. He is reporting some shortness of breath with exertion. He does not appear fluid overloaded on exam. Will start carvedilol to help with neurohormonal modulation. Continue lisinopril. Will reduce amlodipine from 10 mg down to 2.5 mg daily which can help with angina. Signs and symptoms of heart failure reviewed with him. (4) CAD (coronary artery disease): Code(s): I25.10 - Atherosclerotic heart disease of [place] coronary artery without angina pectoris Category: Medical Plan: As above, new finding. (5) Hospital discharge follow-up: Code(s): Z51.89 - Encounter for other specified aftercare Category: Medical Plan: Discharge summary and hospital notes reviewed Plan I explained His current cardiac situation with recent NSTEMI and stent placement. I informed the patient that his recent ultrasound shows his heart is very weak as a result of the heart attack, which is causing his shortness of breath. I discussed adjusting his medications to help strengthen his heart, which involves starting a new medication, carvedilol, and reducing his amlodipine dose to 2.5 mg to avoid his blood pressure becoming too low. I confirmed he will continue his other medications, including aspirin, Brilinta, lisinopril, and atorvastatin. I informed him that one of his heart arteries remains significantly narrowed and we may need to perform a stress test to evaluate it further. We discussed the importance of enrolling in cardiac rehab, an exercise program to help his heart, and will get him established with the program here. Regarding activity, I advised him he can do what he feels up to doing until he starts the rehab program. I communicated that his prescriptions will be updated and sent to his pharmacy today, and we will see him back for a blood pressure check in 2-3 weeks and a follow-up visit in three months. Orders: Orders Cardiac Rehab Today I21.4 - Non-ST elevation (NSTEMI) myocardial infarction Medications: New carvedilol must administer with a meal/food 3.125 mg PO BID 60 tabs 5RF amlodipine dose reduced 2.5 mg PO DAILY 30 tabs 5RF Patient Instructions: - Start the new medication, carvedilol, as prescribed. This will help make your heart stronger. - Decrease your amlodipine dose to 2.5 mg as directed. - Continue taking all your other medications, including lisinopril, atorvastatin, aspirin, and Brilinta. - Watch for any unusual bleeding, such as blood in your urine or stool, or frequent nosebleeds, as aspirin and Brilinta are blood thinners. - We will sign you up for the cardiac rehab exercise program here at the hospital. - Until you start the rehab program, you can do activities that you feel comfortable with. - We may call you to schedule a stress test to get a better look at your heart. - Please return to the office in 2 to 3 weeks for a blood pressure check. - Your next follow-up appointment in this office will be in about three months. Patient was informed and verbally consented to the use of an ambient scribe for clinic note documentation during this visit. Visit time spent on chart review, interview, assessment, orders, documentation. Coding Level of Care Code New Pt Level 4 (97113) Complex visit Add On G2211 Diagnoses Non-ST elevation [place] (NSTEMI) I21.4 S/P cardiac cath Z98.890 Ischemic cardiomyopathy I25.5 CAD (coronary artery disease) I25.10 Hospital discharge follow-up Z51.89 Time Spent (min) 32
== END 2025-01-30 08:55 | disposition home or self-care (01) ==
LOC: HO.HCS 08:21
PROVIDERS: PCP Internal Medicine; Visit Provider Nurse Practitioner Family
DX: I21.4 Non-ST elevation (NSTEMI) myocardial infarction (principal); Z98.890 Other specified postprocedural states; I25.5 Ischemic cardiomyopathy; I25.10 Atherosclerotic heart disease of native coronary artery without angina pectoris; Z51.89 Encounter for other specified aftercare
CPT/HCPCS: 99204

== ENCOUNTER → 2025-01-30 08:20 | Outpatient (BNVA) | payer MEDICAID, SELFPAY | PROVIDERS: PCP Internal Medicine; Visit Provider Nurse Practitioner Family | DX: Z51.89 Encounter for other specified aftercare (principal); I21.4 Non-ST elevation (NSTEMI) myocardial infarction; Z98.890 Other specified postprocedural states; I25.5 Ischemic cardiomyopathy; I25.10 Atherosclerotic heart disease of native coronary artery without angina pectoris; I10 Essential (primary) hypertension; Z79.899 Other long term (current) drug therapy; Z87.891 Personal history of nicotine dependence | CPT/HCPCS: 99212 ==